=== PATIENT | female | born 1980 | race Caucasian/White ===

== ENCOUNTER → 2022-03-10 | Outpatient (CLI) | payer BC, SELFPAY ==
[2022-03-10 15:16] LABS: Absolute Neutrophil Count 4.4 X10^3/uL (2.0-7.7); Basophil# 0.04 X10^3/uL; Basophil% 0.6 % (0-1); Eosinophil# 0.12 X10^3/uL; Eosinophils% 1.8 % (0-5); Hematocrit 42.6 % (37-47); Lymphocyte % 26.8 % (19-41); Mean Corp Hgb Conc 32.9 g/dL (32-36); Mean Corpuscular Hgb 31.7 pg (27.0-32.0); Mean Corpuscular Volume 96.6 fL (81-99); Mean Platelet Vol. 9.6 fl (6.2-12.0); Monocyte# 0.34 X10^3/uL; Monocyte% 5.1 % (0-10); NRBC Flagged by Analyzer 0 % (0-5); Neutrophil # 4.38 X10^3/uL (2.7-7.7); Neutrophil % 65.3 % (47-70); Platelet Count 255 K/mm3 (150-450); RBC Distribution Width CV 12.3 % (11.6-14.6); RBC Distribution Width SD 43.8 fl (35.1-43.9); Red Blood Count 4.41 M/mm3 (4.2-5.4); White Blood Count 6.7 K/mm3 (4.4-11.0)
[2022-03-10 15:48] LABS: ALB/GLOB Ratio 1.3 RATIO (0.9-2.4); AST(SGOT) 10 U/L (15-37); Alanine Aminotransfer ALT/SGPT 16 U/L (13-56); Albumin, Serum 3.7 g/dL (3.2-5.0); Alkaline Phosphatase 50 U/L (45-117); Anion Gap 4 (5-15); BUN 10 mg/dL (7-18); BUN/Creat Ratio 12.6 RATIO (10-20); Chloride 107 mmol/L (98-107); Creatinine, Serum 0.79 mg/dL (0.55-1.02); EST Glomerular Filtration Rate 85 mL/min (>60); Est Glom Filt Rate - Afr Amer 103 mL/min (>60); Globulin 2.9 g/dL (2.2-4.2); Glucose 102 mg/dL (74-106); Potassium 3.6 mmol/L (3.5-5.1); Protein, Total 6.6 g/dL (6.4-8.2); Sodium Level 140 mmol/L (136-145)
== END | disposition home or self-care (01) ==
PROVIDERS: PCP Internal Medicine; Referring Provider Internal Medicine; Visit Provider Internal Medicine
DX: K58.9 Irritable bowel syndrome, unspecified (principal)
CPT/HCPCS: 36415; 80053; 85025

== ENCOUNTER → 2022-11-17 | Outpatient (CLI) | payer BC, SELFPAY ==
--- NOTE | 2022-11-17 09:42 | BI_ITS ---
MAMMOGRAPHY - BILATERAL SCREENING REASON FOR EXAM: Female, 42 years old. Routine annual screening examination. PERTINENT HISTORY: Non-contributory. TECHNIQUE: Digital bilateral breast aquilino (3D mammographic acquisition) in the CC and MLO projections. 2-D mediolateral oblique (MLO) and craniocaudad (CC) views of both breasts were obtained. CAD: Full Field Digital Mammography with Computer Added Detection was performed. COMPARISON: Comparison is made with prior outside examination dated March 26, 2021. FINDINGS: Breast Composition: There are scattered areas of fibroglandular density. There are no dominant masses or suspicious calcifications. No other significant abnormalities are identified. There has been no significant change since the prior study. BI/SCRN MAMM (CAD)W/AQUILINO BILAT IMPRESSION: Stable bilateral screening mammogram. Yearly follow-up mammogram recommended. (A) ASSESSMENT CATEGORY: BIRADS Category 1: Negative. A letter regarding these results will be sent to the patient by the facility within 30 days. Approximately 10% of breast cancers are not detected by mammography. A normal mammogram should not delay biopsy of a clinically suspicious abnormality. [id number] Electronically Signed: Memo Workman MD at 10:15 EDT ,
== END | disposition home or self-care (01) ==
PROVIDERS: PCP Internal Medicine; Visit Provider Internal Medicine
DX: Z12.31 Encounter for screening mammogram for malignant neoplasm of breast (principal)
CPT/HCPCS: 77063; 77067

== ENCOUNTER → 2023-11-17 | Outpatient (CLI) | payer BC, SELFPAY ==
[2023-11-17 12:38] LABS: Absolute Lymphocyte Count 1.67 X10^3/uL (0.83-4.51); Absolute Neutrophil Count 2.4 X10^3/uL (2.0-7.7); Basophil# 0.05 X10^3/uL; Basophil% 1.1 % (0-1); Eosinophil# 0.16 X10^3/uL; Eosinophils% 3.4 % (0-5); Hematocrit 41.7 % (37-47); Hemoglobin 13.6 g/dL (12.0-15.0); Lymphocyte # 1.67 X10^3/ul (0.83-4.51); Lymphocyte % 35.6 % (19-41); Mean Corp Hgb Conc 32.6 g/dL (32-36); Monocyte# 0.37 X10^3/uL; Monocyte% 7.9 % (0-10); NRBC Flagged by Analyzer 0 % (0-5); Neutrophil # 2.43 X10^3/uL (2.7-7.7); Neutrophil % 51.8 % (47-70); Platelet Count 309 K/mm3 (150-450); RBC Distribution Width SD 45.4 fl (35.1-43.9); Red Blood Count 4.39 M/mm3 (4.2-5.4); White Blood Count 4.7 K/mm3 (4.4-11.0)
[2023-11-17 13:04] LABS: Vitamin D,25 Hydroxy 23.6 ng/mL
[2023-11-17 13:17] LABS: AST(SGOT) 30 U/L (15-37); Alanine Aminotransfer ALT/SGPT 35 U/L (13-56); Albumin, Serum 3.5 g/dL (3.2-5.0); Alkaline Phosphatase 65 U/L (45-117); Anion Gap 6 (5-15); BUN 6 mg/dL (7-18); Calcium,Total 8.8 mg/dL (8.5-10.1); Chloride 107 mmol/L (98-107); Cholesterol 215 mg/dL (200); Creatinine, Serum 0.75 mg/dL (0.55-1.02); EST Glomerular Filtration Rate 90 mL/min (>60); Est Glom Filt Rate - Afr Amer 109 mL/min (>60); Follicle Stimulating Hormone 7.8 mIU/mL; Globulin 3.4 g/dL (2.2-4.2); Glucose 92 mg/dL (74-106); High Density Lipoprotein 63 mg/dL; Luteinizing Hormone 1.7 mIU/mL; Protein, Total 6.9 g/dL (6.4-8.2); Sodium Level 140 mmol/L (136-145); Thyroid Stim Hormone (TSH) 2.09 uIU/mL (0.358-3.74); Triglycerides 94 mg/dL; Very Low Density Lipoprotein 19 mg/dL (5-40)
[2023-11-17 20:03] LABS: Erythrocyte Sedimentation Rate 13 mm/hr (0-30)
[2023-11-18 11:09] LABS: ANTINUCLEAR ANTIBODIES DIRECT Negative (Negative)
[2023-11-21 14:08] LABS: Estrogen, Total, Serum 195 pg/mL (.)
== END | disposition home or self-care (01) ==
LOC: BIMLAB 10:44
PROVIDERS: PCP Internal Medicine; Referring Provider Internal Medicine; Visit Provider Internal Medicine
DX: R23.2 Flushing (principal); E66.01 Morbid (severe) obesity due to excess calories; Z68.41 Body mass index [BMI] 40.0-44.9, adult; R53.83 Other fatigue
CPT/HCPCS: 36415; 80053; 80061; 82306; 82672; 83001; 83002; 84443; 85025; 85652; 86038; 86225; 86235

== ENCOUNTER 2023-12-22 11:47 | Outpatient (RCR) | payer BC, SELFPAY | END 2024-01-15 23:59 | LOC: NS 11:47 | PROVIDERS: PCP Internal Medicine; Referring Provider Internal Medicine; Visit Provider Internal Medicine | DX: Z71.3 Dietary counseling and surveillance (principal); E66.01 Morbid (severe) obesity due to excess calories; Z68.41 Body mass index [BMI] 40.0-44.9, adult | CPT/HCPCS: 97802 ==

== ENCOUNTER → 2024-01-22 | Outpatient (CLI) | payer BC, SELFPAY ==
--- NOTE | 2024-01-22 09:54 | BI_ITS ---
MAMMOGRAPHY - BILATERAL SCREENING REASON FOR EXAM: Female, 43 years old. Routine annual screening examination. PERTINENT HISTORY: Non-contributory. TECHNIQUE: Digital bilateral breast aquilino (3D mammographic acquisition) in the CC and MLO projections. 2-D mediolateral oblique (MLO) and craniocaudad (CC) views of both breasts were obtained. CAD: Full Field Digital Mammography with Computer Added Detection was performed. COMPARISON: Comparison is made with prior study November 17, 2022. FINDINGS: Breast Composition: There are scattered areas of fibroglandular density. There are no dominant masses or suspicious calcifications. Focal architectural distortion is seen on the craniocaudad view of the right breast. The patient will be recalled for additional views including 90 degree lateral and compression spot views. Stable bilateral fat containing axillary lymph nodes. No other significant abnormalities are identified. BI/SCRN MAMM (CAD)W/AQUILINO BILAT IMPRESSION: Focal area of architectural distortion seen on the craniocaudal view of the right breast as described. The patient will be recalled for additional views. Recall Side: Right Breast ASSESSMENT CATEGORY: BIRADS Category 0: Incomplete. Need additional imaging evaluation. A letter regarding these results will be sent to the patient by the facility within 30 days. Approximately 10% of breast cancers are not detected by mammography. A normal mammogram should not delay biopsy of a clinically suspicious abnormality. [id number] Electronically Signed: Memo Workman MD at 11:03 EDT ,
== END | disposition home or self-care (01) ==
LOC: OPBI 09:53
PROVIDERS: PCP Internal Medicine; Visit Provider Internal Medicine
DX: Z12.31 Encounter for screening mammogram for malignant neoplasm of breast (principal)
CPT/HCPCS: 77063; 77067

== ENCOUNTER → 2024-01-26 | Outpatient (CLI) | payer BC, SELFPAY ==
--- NOTE | 2024-01-26 08:54 | BI_ITS ---
MAMMOGRAPHY - UNILATERAL DIAGNOSTIC: RIGHT BREAST REASON FOR EXAM: Female, 43 years old. Abnormal screening mammogram. PERTINENT HISTORY: Non-contributory. TECHNIQUE: Compression spot views in the mediolateral oblique and craniocaudad projections were obtained. 90 degree lateral examination was obtained as well. CAD: Full Field Digital Mammography with Computer Added Detection was performed. COMPARISON: Comparison is made with prior study dated January 22, 2024. FINDINGS: Breast Composition: There are scattered areas of fibroglandular density. There are no dominant masses or suspicious calcifications. No other significant abnormalities are identified. BI/DIAG MAMM W/CAD, UNILAT IMPRESSION: Negative unilateral diagnostic mammogram. Targeted sonographic correlation recommended. ASSESSMENT CATEGORY: BIRADS Category 0: Incomplete. Need additional imaging evaluation. A letter regarding these results will be sent to the patient by the facility within 30 days. Approximately 10% of breast cancers are not detected by mammography. A normal mammogram should not delay biopsy of a clinically suspicious abnormality. Electronically Signed: Memo Workman MD at 9:42 EDT ,
--- NOTE | 2024-01-26 08:54 | US_ITS ---
STUDY: ULTRASOUND BREAST - RIGHT REASON FOR EXAM: Female, 43 years old. Abnormal screening mammogram. TECHNIQUE: Axial and longitudinal images of the RIGHT breast were performed with a high resolution ultrasound transducer. # OF IMAGES: 34 COMPARISON: Comparison is made with prior mammogram done earlier today as well as January 22, 2024. FINDINGS: RIGHT Breast: The lower inner quadrant of the right breast was examined with ultrasound. No sonographic abnormality is seen. Routine annual mammographic follow-up recommended. US/Breast Limited Unilateral IMPRESSION: No sonographic abnormality is seen. ASSESSMENT CATEGORY: BIRADS Category 1: Negative. A letter regarding these results will be sent to the patient by the facility within 30 days. Electronically Signed: Memo Workman MD at 14:32 EDT ,
== END | disposition home or self-care (01) ==
LOC: OPBI 08:51
PROVIDERS: PCP Internal Medicine; Referring Provider Internal Medicine; Visit Provider Internal Medicine
DX: R92.8 Other abnormal and inconclusive findings on diagnostic imaging of breast (principal)
CPT/HCPCS: 76642; 77065

== ENCOUNTER → 2024-08-18 | Outpatient (CLI) | payer BC, SELFPAY ==
[2024-08-18 12:23] LABS: Absolute Lymphocyte Count 1.82 X10^3/uL (0.83-4.51); Absolute Neutrophil Count 2.4 X10^3/uL (2.0-7.7); Basophil# 0.05 X10^3/uL; Eosinophil# 0.15 X10^3/uL; Eosinophils% 3.1 % (0-5); Hematocrit 44.8 % (37-47); Hemoglobin 14.4 g/dL (12.0-15.0); Lymphocyte # 1.82 X10^3/ul (0.83-4.51); Mean Corp Hgb Conc 32.1 g/dL (32-36); Mean Corpuscular Hgb 30.3 pg (27.0-32.0); Mean Corpuscular Volume 94.3 fL (81-99); Mean Platelet Vol. 9.8 fl (6.2-12.0); Monocyte# 0.34 X10^3/uL; Monocyte% 7.1 % (0-10); NRBC Flagged by Analyzer 0 % (0-5); Neutrophil % 50.2 % (47-70); Platelet Count 304 K/mm3 (150-450); RBC Distribution Width CV 12.6 % (11.6-14.6); RBC Distribution Width SD 43.9 fl (35.1-43.9); Red Blood Count 4.75 M/mm3 (4.2-5.4); White Blood Count 4.8 K/mm3 (4.4-11.0)
[2024-08-18 12:42] LABS: ALB/GLOB Ratio 1.1 RATIO (0.9-2.4); AST(SGOT) 56 U/L (15-37); Alanine Aminotransfer ALT/SGPT 85 U/L (13-56); Albumin, Serum 3.7 g/dL (3.2-5.0); Alkaline Phosphatase 90 U/L (45-117); Anion Gap 3 (5-15); BUN 9 mg/dL (7-18); BUN/Creat Ratio 11.1 RATIO (10-20); Calcium,Total 9.1 mg/dL (8.5-10.1); Chloride 106 mmol/L (98-107); Cholesterol 200 mg/dL (200); Creatinine, Serum 0.81 mg/dL (0.55-1.02); EST Glomerular Filtration Rate 81 mL/min (>60); Est Glom Filt Rate - Afr Amer 98 mL/min (>60); Globulin 3.4 g/dL (2.2-4.2); Glucose 100 mg/dL (74-106); High Density Lipoprotein 63 mg/dL; Potassium 3.9 mmol/L (3.5-5.1); Protein, Total 7.1 g/dL (6.4-8.2); Sodium Level 138 mmol/L (136-145); Triglycerides 124 mg/dL; Very Low Density Lipoprotein 25 mg/dL (5-40)
== END | disposition home or self-care (01) ==
LOC: BIMLAB 10:57
PROVIDERS: PCP Internal Medicine; Referring Provider Internal Medicine; Visit Provider Internal Medicine
DX: E55.9 Vitamin D deficiency, unspecified (principal); E78.2 Mixed hyperlipidemia; Z83.2 Family history of diseases of the blood and blood-forming organs and certain disorders involving the immune mechanism; R23.2 Flushing; R53.83 Other fatigue
CPT/HCPCS: 36415; 80053; 80061; 81241; 82306; 85025; 85245

== ENCOUNTER 2024-08-27 13:16 | Emergency (ER) | payer BC, SELFPAY ==
[2024-08-27 13:16] VITALS: BP 137/78; PULSE 62; RESP 16; TEMP 36.4; O2SAT 98; BMI 42.9
--- NOTE | 2024-08-27 13:54 | RAD_ITS ---
HISTORY: Injury/Pain. TECHNIQUE: XR Elbow Min 3 Views. COMPARISON: None. FINDINGS: BONES : No acute fracture identified. Mineralization unremarkable. JOINTS: No dislocation. Joint spaces maintained. RAD/Elbow min 3 Views IMPRESSION: No acute fracture or dislocation identified in the right elbow. Electronically Signed: Isabella Flannery MD at 15:11 EST ,
--- NOTE | 2024-08-27 13:55 | EX.ED.UPPERE ---
HPI History of Present Illness HPI Narrative: Patient presents with a right elbow injury that occurred today. Patient states she slipped and fell. Patient states she landed on her right elbow. Patient is right-hand dominant. Patient states her pain is worse with movement and palpation. Patient describes her pain as throbbing. Patient states nothing seems to help with it. Patient denies any paresthesias or weakness. Patient denies any head injury or loss of consciousness. Patient denies any other injuries. Chief Complaint: Upper Extremity Injury Informant: patient Occured/Mechanism Mechanism/Context: Yes fall Onset/Context/Timing Onset: Today Context: Sudden Onset Timing: Continuous Quality of Pain: Throbbing Location: Right elbow Worsened by: Movement, palpation Relieved by: Nothing Associated Symptoms Associated Symptoms: Negative for Parasthesia, Weakness or Loss of Funtion [facility] Medical History Acute bacterial conjunctivitis IBS (irritable bowel syndrome) Arthritis Home Medications ?Medication ?Instructions ?Recorded ?Last Taken ?Type escitalopram oxalate 5 mg tablet 5 mg PO QDAY #30 tabs 08/18/24 Unknown Rx (Lexapro) Allergy/AdvReac Type Severity Reaction Status Date / Time amoxicillin Allergy Rash Verified 08/27/24 13:19 Sulfa (Sulfonamide Allergy Rash Verified 08/27/24 13:19 Antibiotics) Family History Grandmother Diabetes Grandfather Parkinson disease Mother Skin cancer Bleeding disorder factor 5 Sister Autoimmune disease sjogren's Aunt Autoimmune disease Surgical History History of removal of ovarian cyst H/O tubal ligation History of hysterectomy Social History household members: spouse and children current occupational status: employed current occupation: Works at [employer] Smoking Status: Never smoker Electronic Cigarette Use: not used alcohol intake: current alcohol intake frequency: a few times a week Alcohol type: wine details: 5 oz wine substance use type: does not use what type of physical activity do you participate in: walking frequency: daily do you feel safe at home: Yes ROS ROS ED Constitutional Constitutional ED: Denies chills or fever(s) Eyes Eyes: Denies blurry vision or change in vision ENT ENT ED: Denies rhinorrhea or sore throat Cardiovascular Cardiovascular: Denies chest pain or palpitations Respiratory/Chest Respiratory/Chest: Denies cough or dyspnea Gastrointestinal Gastrointestinal: Denies nausea or vomiting Genitourinary Genitourinary ED: Denies dysuria or hematuria Musculoskeletal Musculoskeletal: Reports back pain; Denies neck pain Integumentary Reports Abrasions; Denies abscess or rash Neurologic Neurologic: Denies headache(s) or weakness Allergic/Immunologic Allergic/Immunologic ED: Denies mouth swelling or urticaria EXAM Physical Exam Const Vital Signs: 08/27/24 13:16 Temperature 97.6 F L Temperature Source Temporal Pulse Rate 62 Respiratory Rate 16 Blood Pressure 137/78 H Blood Pressure Mean 97 Pulse Ox 98 Oxygen Delivery Method Room Air Positive well nourished and well developed Constitutional Narrative: Patient has BMI of 42.9 General Appearance ED: well developed and NAD HEENT Reports moist mucous membranes Neck full ROM and supple Extremity Extremity Narrative: There is tenderness, edema, and ecchymosis over the ulnar aspect of the right elbow and forearm. There is no bony crepitance or step-off noted. Range of motion was limited in all motions of the right elbow secondary to pain. There is a superficial abrasion over the extensor surface of the right proximal forearm. There is no active bleeding noted. Sensation was intact to light touch in the radial, median, and ulnar areas. Strength is 5/5 in the radial, median, and ulnar areas. Radial pulses are equal bilaterally. Neuro oriented x3, CN's II-XII intact bilaterally, moves all extremities, no focal motor deficits and no sensory deficits noted Sensorium / Orientation: alert Motor Exam: strength 5/5 throughout Psych mental status grossly normal Skin Trauma: abrasion MDM MDM MDM Narrative Medical decision making narrative: Differential diagnosis includes fracture, contusion, and sprain. X-rays of the right elbow will be obtained to assess for fracture. Radiography Diagnostic Testing: X-rays of the right elbow were obtained. There are 3 views. On my independent interpretation, there is no acute fracture or dislocation noted. There is no joint effusion or displacement of the fat pads. Radiologist also interpreted the x-rays and agrees. Treatment and Re-Evaluation Narrative: Patient was given a tetanus booster here. Patient was advised of her findings. Patient was instructed to ice and elevate the right elbow. Patient was instructed to continue Tylenol and ibuprofen as needed for pain. Patient was instructed to follow-up with her primary care physician in 5 to 7 days. Patient understood and was agreeable with the plan. All questions were answered. Discharge Plan Triage Chief Complaint: Upper Extremity Injury ED Provider: Zackery Juárez Dx/Rx/DC Orders Clinical Impression: Contusion of right elbow, Fall, Abrasion Instructions: ED Contusion, Elbow Prescriptions: No Action escitalopram oxalate [Lexapro] 5 mg tablet 5 mg PO QDAY Qty: 30 1RF Primary Care Provider: Asmita Gonzalez Referrals: Asmita Gonzalez MD [Primary Care Provider] - 5-7 Days Print Language: Maori Disposition Disposition: Home, Self Care
[2024-08-27] MEDS: Diphth,Pertuss(Acell),Tet Vac 0.5 ML Vial IM (13:59)
== END 2024-08-27 16:08 | disposition home or self-care (01) ==
PROVIDERS: Emergency Provider Emergency Medicine; PCP Internal Medicine; Referring Provider Emergency Medicine; Visit Provider Emergency Medicine
DX: S50.01XA Contusion of right elbow, initial encounter (principal); S50.311A Abrasion of right elbow, initial encounter; S50.811A Abrasion of right forearm, initial encounter; W01.0XXA Fall on same level from slipping, tripping and stumbling without subsequent striking against object, initial encounter; Z23 Encounter for immunization
CPT/HCPCS: 73080; 90471; 90715; 99282

== ENCOUNTER → 2024-10-13 | Outpatient (CLI) | payer BC, SELFPAY ==
[2024-10-13 13:35] LABS: AST(SGOT) 24 U/L (<=31); Alanine Aminotransfer ALT/SGPT 20 U/L (<=34); Albumin, Serum 4.1 g/dL (3.5-5.0); Alkaline Phosphatase 63 U/L (35-104); Bilirubin, Direct 0.12 mg/dL (0.00-0.30); Globulin 2.5 g/dL (2.2-4.2); Protein, Total 6.6 g/dL (5.9-8.4); Total Bilirubin 0.27 mg/dL (0.00-1.30)
== END | disposition home or self-care (01) ==
LOC: BIMLAB 08:29
PROVIDERS: PCP Internal Medicine; Referring Provider Internal Medicine; Visit Provider Internal Medicine
DX: R74.8 Abnormal levels of other serum enzymes (principal)
CPT/HCPCS: 36415; 80076

== ENCOUNTER → 2025-02-20 | Outpatient (CLI) | payer BC, SELFPAY ==
[2025-02-20 15:36] LABS: Hematocrit 43.1 % (37-47); Hemoglobin 13.9 g/dL (12.0-15.0); Immature Granulocytes Count 0.010 X10^3/uL (0.0-0.0); Mean Corp Hgb Conc 32.3 g/dL (32-36); Mean Corpuscular Volume 95.1 fL (81-99); Mean Platelet Vol. 10.1 fl (6.2-12.0); NRBC Flagged by Analyzer 0 % (0-5); Platelet Count 317 K/mm3 (150-450); RBC Distribution Width CV 13.4 % (11.6-14.6); RBC Distribution Width SD 47.2 fl (35.1-43.9); Red Blood Count 4.53 M/mm3 (4.2-5.4); White Blood Count 5.3 K/mm3 (4.4-11.0)
[2025-02-20 16:30] LABS: AST(SGOT) 29 U/L (<=31); Alanine Aminotransfer ALT/SGPT 26 U/L (<=34); Albumin, Serum 4.1 g/dL (3.5-5.0); Alkaline Phosphatase 76 U/L (35-104); Anion Gap 12 (5-15); BUN 9 mg/dL (4-19); BUN/Creat Ratio 11.1 RATIO (10-20); Calcium,Total 9.3 mg/dL (7.6-11.0); Carbon Dioxide 25.3 mmol/L (21.0-32.0); Chloride 103 mmol/L (98-108); Globulin 2.7 g/dL (2.2-4.2); Glucose 85 mg/dL (70-99); Potassium 4.3 mmol/L (3.3-5.1); Vitamin B12 339 pg/mL (180-914); Vitamin D,25 Hydroxy 35.4 ng/mL (30-100)
== END | disposition home or self-care (01) ==
LOC: BIMLAB 12:04
PROVIDERS: PCP Internal Medicine; Referring Provider Internal Medicine; Visit Provider Internal Medicine
DX: Z00.00 Encounter for general adult medical examination without abnormal findings (principal); R53.83 Other fatigue
CPT/HCPCS: 36415; 80053; 82306; 82607; 84443; 85025

== ENCOUNTER → 2025-03-01 | Outpatient (CLI) | payer BC, SELFPAY ==
--- NOTE | 2025-03-01 12:30 | BI_ITS ---
EXAM: SCRN MAMM (CAD)W/AQUILINO BILAT DATE: 03/01/2025 CLINICAL HISTORY: F, Age 44 y/o , SCREENING TECHNIQUE: SCRN MAMM (CAD)W/AQUILINO BILAT COMPARISON: Prior exam(s) dated 01/26/2024, 01/22/2024, 11/17/2022. FINDINGS: TISSUE DENSITY: There are scattered areas of fibroglandular density. Bilateral Breast Mammographic Findings: No significant masses, calcifications or other abnormalities are identified. BI/SCRN MAMM (CAD)W/AQUILINO BILAT IMPRESSION: There is no mammographic evidence of malignancy. OVERALL FINAL ASSESSMENT BI-RADS 1: NEGATIVE. RECOMMENDATION: Routine annual follow-up in 1 Year A letter with findings and recommendations will be mailed to the patient. Reading Location: [id number]
--- NOTE | 2025-03-01 12:30 | BI_ITS ---
EXAM: SCRN MAMM (CAD)W/AQUILINO BILAT DATE: 03/01/2025 CLINICAL HISTORY: F, Age 44 y/o , SCREENING TECHNIQUE: SCRN MAMM (CAD)W/AQUILINO BILAT COMPARISON: Prior exam(s) dated 01/26/2024, 01/22/2024, 11/17/2022. FINDINGS: TISSUE DENSITY: There are scattered areas of fibroglandular density. Bilateral Breast Mammographic Findings: No significant masses, calcifications or other abnormalities are identified. BI/SCRN MAMM (CAD)W/AQUILINO BILAT IMPRESSION: There is no mammographic evidence of malignancy. OVERALL FINAL ASSESSMENT BI-RADS 1: NEGATIVE. RECOMMENDATION: Routine annual follow-up in 1 Year A letter with findings and recommendations will be mailed to the patient. Reading Location: [id number]
== END | disposition home or self-care (01) ==
LOC: OPBI 12:09
PROVIDERS: PCP Internal Medicine; Referring Provider Internal Medicine; Visit Provider Internal Medicine
DX: Z12.31 Encounter for screening mammogram for malignant neoplasm of breast (principal)
CPT/HCPCS: 77063; 77067

== ENCOUNTER 2025-04-08 21:20 | Emergency (ER) | payer BC, SELFPAY ==
[2025-04-08 21:21] VITALS: BP 147/71; PULSE 57; RESP 18; TEMP 36.2; O2SAT 99
--- NOTE | 2025-04-08 21:25 | RAD_ITS ---
PROCEDURE: ANKLE MIN 3 VIEWS 04/08/2025 REASON FOR EXAM: INJURY TECHNIQUE: ANKLE MIN 3 VIEWS Laterality: Right COMPARISON: None. FINDINGS: Bones: No fracture. Joints: No dislocation. Soft tissues: No soft tissue swelling appreciated, normally thick soft tissues are present. Other: RAD/Ankle min 3 Views IMPRESSION: No acute process identified. Reading Location: [facility]
[2025-04-08 22:28] VITALS: BMI 45.3
--- NOTE | 2025-04-08 22:37 | EDS_ITS ---
HPI History of Present Illness Chief Complaint: Lower Extremity Injury [facility] Medical History Acute bacterial conjunctivitis IBS (irritable bowel syndrome) Arthritis Home Medications ?Medication ?Instructions ?Recorded ?Last Taken ?Type escitalopram oxalate 10 mg tablet 10 mg PO QDAY #90 ta bs 03/14/25 Unknown Rx Allergy/AdvReac Type Severity Reaction Status Date / Time amoxicillin Allergy Rash Verified 04/08/25 21:21 Sulfa (Sulfonamide Allergy Rash Verified 04/08/25 21:21 Antibiotics) Family History Grandmother Diabetes Grandfather Parkinson disease Mother Skin cancer Bleeding disorder factor 5 Sister Autoimmune disease sjogren's Aunt Autoimmune disease
--- NOTE | 2025-04-08 22:37 | EX.ED.DYSGE1 ---
HPI History of Present Illness Chief Complaint: Lower Extremity Injury [facility] Medical History Acute bacterial conjunctivitis IBS (irritable bowel syndrome) Arthritis Home Medications ?Medication ?Instructions ?Recorded ?Last Taken ?Type escitalopram oxalate 10 mg tablet 10 mg PO QDAY #90 tabs 03/14/25 Unknown Rx Allergy/AdvReac Type Severity Reaction Status Date / Time amoxicillin Allergy Rash Verified 04/08/25 21:21 Sulfa (Sulfonamide Allergy Rash Verified 04/08/25 21:21 Antibiotics) Family History Grandmother Diabetes Grandfather Parkinson disease Mother Skin cancer Bleeding disorder factor 5 Sister Autoimmune disease sjogren's Aunt Autoimmune disease Surgical History History of removal of ovarian cyst H/O tubal ligation History of hysterectomy Social History (Updated 02/20/25 @ 11:[address] Asmita Gonzalez MD) household members: spouse and children current occupational status: employed current occupation: Works at [employer] Smoking Status: Former smoker Electronic Cigarette Use: not used alcohol intake: current alcohol intake frequency: a few times a week Alcohol type: wine details: 5 oz wine substance use type: does not use what type of physical activity do you participate in: walking frequency: daily do you feel safe at home: Yes EXAM Physical Exam Const Vital Signs: 04/08/25 21:21 04/08/25 22:47 Temperature 97.1 F L 98.1 F Temperature Source Temporal Pulse Rate 57 L 78 Respiratory Rate 18 16 Blood Pressure 147/71 H 123/81 H Blood Pressure Mean 96 95 Pulse Ox 99 98 Oxygen Delivery Method Room Air MDM MDM MDM Narrative Medical decision making narrative: HISTORY OF PRESENT ILLNESS: Chief complaint: Ankle pain 44-year-old female presents with acute right ankle pain. No she was walking down the stairs when she missed the last step. Complaining of right ankle pain. Denies falls or head trauma. Denies knee or hip pain. REVIEW OF SYSTEMS: Pertinent positives: Ankle pain Pertinent negatives: none PHYSICAL EXAM: Nursing triage notes reviewed, Vital signs reviewed Constitutional: please see mdmbruit : No CVAT Extremities: Swelling noted about the lateral malleolus of the right ankle. No sign of open fracture, compartments are soft. right lower extremity neurovascularly intact Neuro: Intact sensation L1-S1 dermatomal distributions. Intact 5/5 strength in hip flexion (T12-L3). Knee extension (L2-L4). Ankle dorsiflexion (L4-L5). Ankle plantar flexion (S1). Great toe extension (L5). 2+ patellar and Achilles DTRs. Skin: No rash or lesions noted MEDICAL DECISION MAKING: Chief Complaint: please see HPI MDM Narrative: The patient was initially hemodynamically stable, afebrile and nontoxic-appearing. Exam with a neurovascular intact right lower extremity. Slight edema to right ankle but otherwise compartments are soft X-ray of the right ankle was interpreted by myself showed evidence of obvious bony abnormality. Radiology agreed my interpretation. RICE instructions given. Aircast given for comfort and stabilization. The patient and/or family, caregivers express understanding. The patient and/or family, caregivers agrees with the plan. Shared decision making: I will have a discussion with the patient and or visitors regarding risk/benefits of further testing or admission. They will be made aware of of the risk/benefits inherent in this decision they will be given the opportunity to voice understanding. Total critical care time today provided was at least 0 minutes. This excludes separately billable procedures. Critical care time (if documented) is secondary to the patient having high probability of clinically significant/life threatening deterioration in the patient's condition which required my urgent intervention. Impression: 1. Acute ankle pain 2. Acute ankle sprain Dispo: Discharge home This note was generated with [employer] dictation software. It may contain incorrect words, spelling, and punctuation that were not noted in review of the chart prior to signing. Radiography Diagnostic Testing: Clinical Impression(s) from Imaging Studies Ankle X-Ray 04/08/25 21:25 IMPRESSION: No acute process identified. Reading [facility] Discharge Plan Triage Chief Complaint: Lower Extremity Injury ED Provider: Jah Ochoa Dx/Rx/DC Orders Clinical Impression: Ankle sprain Instructions: ED Sprain Ankle W X Ray, ED RICE Prescriptions: No Action escitalopram oxalate 10 mg tablet 10 mg PO QDAY Qty: 90 1RF Stand Alone Forms: ED Work / School Excuse Primary Care Provider: Asmita Gonzalez Referrals: Asmita Gonzalez MD [Primary Care Provider] - Activity Restrictions/Additional Instructions: Thank you for trusting us with your care today! The x-ray of your ankle did not show signs of bony injury such as a fracture, break or dislocation. Please use RICE therapy. Please take Tylenol (2 pills, 650 mg), ibuprofen (2 pills, 400 mg) every 6 hours as needed for pain and fever control. Please return to the emergency department if your symptoms change or worsen. Please follow with your primary care physician for further outpatient evaluation and management. Print Language: Polish Disposition Disposition: Home, Self Care Discharge Date/Time: 04/08/25 23:04
[2025-04-08 22:47] VITALS: BP 123/81; PULSE 78; RESP 16; TEMP 36.7; O2SAT 98
--- OUTSIDE RECORDS SUMMARY | 2025-04-08 22:55 | XMS RPT_ITS | CCD ---
Author Organization [facility] Care Team Providers Care Film Mounter Name Role Phone Pcp, No Primary Care Provider Unavailabl e Unavailable Primary Care Provider Unavailmoira e Dr. Mayo Smith Primary Care Provider Dr. Mayo Smith Referring Provider [phone] Dr. Cleo Gonzalez Attending Provider Dr. Cleo Gonzalez Primary Care Provider Dr. Cleo Gonzalez Referring Provider [phone] MIKE Mancini Attending Provider [phone] Dr. Cleo Gonzalez Attending Provider [phone] Unavailable Primary Care Provider UnavailCLEO Salazar MD Attending Unavailable EDWINA GARCÍA APRN, CNP Primary Care U navailable EDWINA GARCÍA APRN, CNP Primary Care Phys ician Dr. Cleo Gonzalez Primary Care Provider Dr. Cleo Gonzalez Referring Provider [phone] MIKE Mancini Attending Provider Dr. Cleo Gonzalez Attending Provider [phone] Unavailable Primary Care Provider UnavailCleo Saalzar MD Primary Care Provider [phone] CLEO GONZALEZ Primary Care Unavailable CLEO GONZALEZ Primary Care Unavailable FREDDY LYONS Referring Unavailable CLEO GONZALEZ Primary Care Unavailable MATTI ANDERSON Referring Unavailable CLEO GONZALEZ Primary Care Unavailable CLEO GONZALEZ Primary Care Unavailable LISA, CLEO G Primary Care Unavailable LISA, CLEO G Primary Care Unavailable Lisa VAUGHAN, Dr. Tian Primary Care Provider [phone] Lisa VAUGHAN, Dr. Tian Attending Provider Lisa VAUGHAN, Dr. Tian Referring Provider Franck CASON, Dr. Vizcarra Attending Provider Franck CASON, Dr. Vizcarra Referring Provider Franck CASON, Dr. Vizcarra Emergency Provider Luana CASON, Dr. Rivas Attending Provider Russell VAUGHAN, Dr. Faust Attending Provider Umesh HEAT CURER-C, Mery Attending Provider Lisa VAUGHAN, Dr. Tian Primary Care Provider [phone] Lisa VAUGHAN, Dr. Tian Referring Provider Sekou Mancini Attending Provider Lisa VAUGHAN, Dr. Tian Attending Provider Lisa, Cleo Referring Unavailable Lisa, Cleo Attending Unavailable [place], Cleo Primary Care Unavailable [place], Cleo Attending Unavailable Lsia, Cleo Primary Care Unavailable [place], Cleo Referring Unavailable Lisa, Cleo Attending Unavailable [place], Cleo Referring Unavailable Lisa, Cleo Primary Care Unavailable [place], Cleo Primary Care Unavailable Schwiger, Zackery Referring Unavailable Schwiger, Zackery Attending Unavailable [place], Cleo Primary Care Unavailable Govind Wells Attending Unavailable Mery Calvo Attending Unavailable [place], Cleo Primary Care Unavailable [place], Cleo Referring Unavailable [place], Cleo Attending Unavailable Lisa, Cleo Referring Unavailable Lisa, Cleo Primary Care Unavailable [place], Cleo Referring Unavailable Lisa, Cleo Primary Care Unavailable Rob Craft Attending Unavailable [place], Cleo Primary Care Unavailable [place], Cleo Referring Unavailable Rob Craft Attending Unavailable [place], Cleo Referring Unavailable CalvoMery Attending Unavailable Lisa, Cleo Primary Care Unavailable Sekou Mancini Attending Unavailable [place], Cleo Primary Care Unavailable [place], Cleo Referring Unavailable CalvoMery Attending Unavailable [place], Cleo Primary Care Unavailable [place], Cleo Referring Unavailable CalvoLindae Attending Unavailable Lisa, Cleo Primary Care Unavailable [place], Cleo Referring Unavailable Lisa, Cleo Referring Unavailable [place], Cleo Attending Unavailable Lisa, Cleo Primary Care Unavailable Lisa, Cleo Attending Unavailable Lisa, Cleo Primary Care Unavailable [place], Cleo Referring Unavailable [place], Cleo Referring Unavailable Lisa, Cleo Attending Unavailable [place], Cleo Primary Care Unavailable Allergies Allergy Classification Reported Allergen(s) Allergy Type Date of Onset Reaction(s) Facility (20 sources) Amoxicillin; Translations: [amoxicillin] Drug Allergy 5 [facility] (18 sources) Sulfacetamide; Translations: [SULFACETAMIDE] Drug Allergy 2 Other: See [facility] (7 sources) Sulfonamides (Antibiotic); Translations: [Sulfa (Sulfonamide Antibiotics)] Allergy to substance 2 Rash [facility] (1 source) Sulfonamide; Translations: [sulfa drugs] Drug allergy [facility] (1 source) Amoxicillin Drug Allergy 5 [facility] Repository Medications Current Medications Medication Drug Class(es) Dates Sig (Normalized) Sig (Original) azithromycin 250 mg oral tablet (6 sources) Macrolide Antimicrobial Start: 05-15-2024 End: 05-20-2024 take 2 tablets by mouth once daily, then take 1 tablet by mouth once daily azithromycin (ZITHROMAX) 250 mg tablet Indications: Respiratory infection Take 2 tablets by mouth once daily for 1 day, THEN 1 tablet once daily for 4 days. 6 tablet 05/15/2024 05/20/2024 Active Start: 11-07-2022 End: 10-16-2023 take 2-5 tablets by mouth once daily Azithromycin 250 mg tablet Discontinued 0 PO .COMPLEX 6 0 November 07, 2022 12:00am October 16, 2023 1:55pm take 500 mg today (day 1), then 250 mg for 4 days (days 2-5) PO Start: 11-07-2022 End: 10-16-2023 Azithromycin Discontinued 0 PO .COMPLEX November 07, 2022 12:00am October 16, 2023 1:55pm take 500 mg today (day 1), then 250 mg for 4 days (days 2-5) PO Azithromycin 5 Day Dose Pack (1 source) Start: 11-23-2014 Azithromycin 5 Day Dose Pack 0 Refill(s) Start Date: 11/23/14 Status: Ordered escitalopram 10 mg oral tablet (8 sources) Serotonin Reuptake Inhibitor Start: 10-13-2024 take 1 tablet by mouth once daily Escitalopram Oxalate 10 mg tablet Active 10 mg PO daily 90 October 13, 2024 9:19am Start: 08-18-2024 End: 10-13-2024 take 1 tablet by mouth once daily Escitalopram Oxalate (Lexapro) 5 mg tablet Discontinued 5 mg PO daily 30 August 18, 2024 1:00am October 13, 2024 9:25am 12 hr guaiFENesin 600 mg extended release oral tablet (2 sources) Start: 06-07-2023 End: 06-14-2023 take 1 tablet by mouth twice daily as needed guaiFENesin (MUCINEX) 600 mg 12 hr tablet Take 1 tablet by mouth two times a day as needed for cold/allergy symptoms (cough) for up to 7 days. 14 tablet 0 06/07/2023 06/14/2023 Active Comment on above: Take 1 tablet by [facility] two times a day as needed for cold/allergy symptoms (cough) for up to 7 days. 2 ml sodium hyaluronate 10 mg/ml prefilled syringe (9 sources) Start: 02-17-2024 EYALURONIC ACI D 10 mg/mL(mw 2.4 -3.6 million) injection INJECT 1 DOSE ONCE A WEEK FOR THE LEFT KNEE FOR 3 WEEKS 02/17/2024 Active Start: 02-07-2022 End: 02-07-2022 hyaluronate sodium, stabiliz ed syrg 4 mL (MONOVISC) Start: 01-08-2022 End: 01-23-2022 Sodium Hyaluronate (HYALURON AN) 30 mg/2 mL syrg 30 mg by INTRA-ARTICULAR route one time a week for 3 doses. Orthovisc 3 Syringe 0 01/08/2022 01/23/2022 Active Start: 01-08-2022 End: 01-08-2022 hyaluronate sodium, stabiliz ed (MONOVISC) 88 mg/4 mL syrg Indications: Arthritis of knee 4 mL by INTRA-ARTICULAR route one time only for 1 dose. Monovisc 4 mL 0 01/08/2022 01/08/2022 Active Start: 12-25-2021 End: 01-09-2022 sodium hyaluronate (EYALURON IC ACID) 10 mg/mL(mw 2.4 -3.6 million) injection Indications: Arthritis of knee 2 mL by INTRA-ARTICULAR route one time a week for 3 doses. 3 Syringe 0 01/07/2022 01/08/2022 Discontinued (Changing Therapy/Dosage Form) Comment on above: 2 mL by INTRA-ARTICU LAR route one time a week for 3 doses. 4 mL by INTRA-ARTICU LAR route one time only for 1 dose. Monovisc 30 mg by INTRA-ARTIC ULAR route one time a week for 3 doses. Orthovisc meclizine hydrochloride 25 mg oral tablet (1 source) Antiemetic Start: 11-24-19 meclizine 25 mg oral tablet Dose : 25 mg = 1 tab(s), Oral, TID, # 30 tab(s), 0 Refill(s) Start Date: 11/23/14 Status: Ordered meloxicam 15 mg oral tablet (4 sources) Nonsteroidal Anti-inflammatory Drug Start: 03-08-20 take 1 tablet by mouth once meloxicam (MOBIC) 15 mg tablet Take 1 tablet by mouth every afternoon. 03/08/2024 Active predniSONE 10 mg oral tablet (11 sources) Start: 12-18-19 predniSONE (DELTASONE) 10 mg tablet Take 4 tabs daily for 3 days, then 2 tabs daily for 3 days, then 1 tab daily for 3 days with food. 21 tablet 12/18/2023 Active Start: 02-25-2022 End: 03-06-2022 predniSONE (DELTASONE) 10 mg tablet Take 4 tabs daily for 3 days, then 2 tabs daily for 3 days, then 1 tab daily for 3 days with food. 21 tablet 0 02/25/2022 03/06/2022 Active Start: 11-23-2014 prednisone 20m g tab (TAPER) Dose : 20 mg = 1 tab(s), Oral, qDay, 0 Refill(s) Start Date: 11/23/14 Status: Ordered Comment on above: Take 4 tabs daily fo r 3 days, then 2 tabs daily for 3 days, then 1 tab daily for 3 days with food. Completed/Discontinued Medications Medication Drug Class(es) Dates Sig (Normalized) Sig (Original) benzonatate 100 mg oral capsule (5 sources) Non-narcotic Antitussive Start: 11-07-2022 End: 10-16-2023 take 2 capsules by mouth three times daily as needed for cough Benzonatate 100 mg capsule Discontinued 200 mg PO THREE TIMES A DAY as needed for cough November 07, 2022 12:00am October 16, 2023 1:55pm Start: 11-07-2022 End: 10-16-2023 take 200 mg by mouth three times daily Benzonatate Discontinued 200 MG PO THREE TIMES A DAY November 07, 2022 12:00am October 16, 2023 1:55pm cephalexin 500 mg oral capsule (4 sources) Cephalosporin Antibacterial Start: 07-02-2023 End: 07-12-2023 take 1 capsule by mouth every twelve hours Cephalexin 500 mg capsule Discontinued 500 mg PO Q12H 20 10 July 02, 2023 1:00am July 11, 2023 1:00am July 12, 2023 1:04am cyclobenzaprine hydrochloride 5 mg oral tablet (16 sources) Muscle Relaxant Start: 10-13-2022 End: 11-17-2023 take 1 tablet by mouth twice daily as needed for pain Cyclobenzaprine 5 mg tablet Discontinued 5 mg PO TWICE A DAY as needed for pain October 13, 2022 5:06pm November 17, 2023 9:51am Start: 03-10-2022 End: 09-27-2022 take 1 tablet by mouth once daily as needed for pain Cyclobenzaprine 5 mg tablet Discontinued 5 mg PO DAILY as needed for pain March 10, 2022 12:00am September 27, 2022 10:19am doxycycline monohydrate 100 mg oral capsule (4 sources) Tetracycline-class Drug Start: 10-28-2024 End: 11-07-2024 take 1 capsule by mouth twice daily Doxycycline Monohydrate 100 mg capsule Discontinued 100 mg PO TWICE A DAY 20 October 28, 2024 12:00am November 06, 2024 12:00am November 07, 2024 12:12am Start: 06-07-2023 End: 06-12-2023 take 1 tablet by mouth twice daily doxycycline (VIBRA-TABS) 100 mg tablet Take 1 tablet by mouth two times a day for 5 days. 10 tablet 0 06/07/2023 06/12/2023 Active Comment on above: Take 1 tablet by pily two times a day for 5 days. fluticasone propionate 0.05 mg/actuat metered dose nasal spray (4 sources) Corticosteroid Start: End: take 50 ug nasal route twice daily Fluticasone Propionate (Children's Flonase Allergy Rlf) 50 mcg/actuation spray,suspension Discontinued 2 NMA INTRANASAL TWICE A DAY October 16, 2023 1:00am November 17, 2023 9:52am administer into each nostril Start: 10-16-2023 End: 11-17-2023 take 1 spray(s) nasal route twice daily Fluticasone Propionate (Children's Flonase Allergy Rlf) 50 mcg/actuation spray,suspension Discontinued 2 SPRAY INTRANASAL TWICE A DAY October 16, 2023 1:00am November 17, 2023 9:52am administer into each nostril ibuprofen 800 mg oral tablet (6 sources) Nonsteroidal Anti-inflammatory Drug Start: 03-10-2022 End: 09-27-2022 take 1 tablet by mouth every eight hours Ibuprofen 800 mg tablet Discontinued 800 mg PO Q8H 30 March 10, 2022 12:00am September 27, 2022 10:19am Chronic knee pain Pain in unspecified knee Other chronic pain methylPREDNISolone 4 mg oral tablet (13 sources) Corticosteroid Start: 10-16-2023 End: 10-22-2023 take 1 tablet by mouth once Methylprednisolone (Medrol (Esau)) 4 mg tablets,dose pack Discontinued 4 mg PO per package directions 21 6 0 October 16, 2023 1:00am October 21, 2023 1:00am October 22, 2023 1:05am Start: 07-02-2023 End: 07-08-2023 take 1 tablet by mouth once Methylprednisolone (Medrol (Esau)) 4 mg tablets,dose pack Discontinued 4 mg PO per package directions 21 6 0 July 02, 2023 1:00am July 07, 2023 1:00am July 08, 2023 1:04am Start: 11-07-2022 End: 11-13-2022 take 1 tablet by mouth once Methylprednisolone (Medrol (Esau)) 4 mg tablets,dose pack Discontinued 4 mg PO per package directions 21 6 0 November 07, 2022 12:00am November 12, 2022 12:00am November 13, 2022 12:04am naproxen 500 mg oral tablet (16 sources) Nonsteroidal Anti-inflammatory Drug Start: 10-13-2022 End: 11-17-2023 Naproxen 500 mg tablet Discontinued 500 mg PO TWICE A DAY October 13, 2022 5:06pm November 17, 2023 9:52am take twice daily for 10 days, then as needed. Start: 08-06-2015 End: 03-10-2022 take 1 tablet by mouth twice daily Naproxen (Naprosyn) 500 MG tablet Discontinued 500 mg PO TWICE A DAY August 06, 2015 1:00am March 10, 2022 1:16pm Tobramycin (2 sources) Aminoglycoside Antibacterial Start: 09-27-2022 End: 10-04-2022 Tobramycin Discontinued 1 DRP OPHTHALMIC Q4H 5 7 September 27, 2022 1:00am October 04, 2022 1:12am Tobramycin 0.3 % drops (3 sources) Start: 09-27-2022 End: 10-04-2022 take 0.3 drop(s) into the eye(s) every four hours Tobramycin 0.3 % drops Discontinued 1 NMA OPHTHALMIC Q4H 5 7 0 September 27, 2022 1:00am October 03, 2022 1:00am October 04, 2022 1:12am Start: 09-27-2022 End: 10-04-2022 take 0.3 drop(s) into the eye(s) every four hours Tobramycin 0.3 % drops Discontinued 1 NMA OPHTHALMIC Q4H 5 7 September 27, 2022 1:00am October 03, 2022 1:00am October 04, 2022 1:12am Problems Active Problems Problem Classification Problem Date Documented Da te Episodic/Chronic Abdominal pain (6 sources) Pain in pelvis; Translations: [Pelvic and perineal pain] 08-07-2015 Episodic Adjustment disorders (1 source) Adjustment disorder with other symptoms; Translations: [Other specified adjustment reactions] Chronic Administrative/social admission (1 source) Persons encountering health services in other specified circumstances; Translations: [Other reasons for seeking consultation] Episodic Anxiety disorders (7 sources) Anxiety disorder, unspecified; Translations: [Anxiety state, unspecified] Onset: 5 10-13-2022 Chronic Conditions associated with dizziness or vertigo (2 sources) Dizziness; Translations: [Dizziness and giddiness] 07-26-2024 Episodic Disorders of lipid metabolism (3 sources) Mixed hyperlipidemia; Translations: [Mixed hyperlipidemia] Onset: 5 08-18-2024 Chronic Disorders of teeth and jaw (1 source) Temporomandibular [id number] syndrome; Translations: [Arthralgia of temporomandibular joint, unspecified side] 12-18-2023 Episodic E Codes: Fall (3 sources) Fall; Translations: [Unspecified fall, initial encounter] 09-04-2024 Episodic Headache; including migraine (1 source) Headache; Translations: [Daily headache] 10-13-2022 Episodic Immunizations and screening for infectious disease (5 sources) Contact with and (suspected) exposure to other viral communicable diseases; Translations: [Contact with or suspected exposure to other viral communicable disease] 11-16-2023 Episodic Inflammation; infection of eye (except that caused by tuberculosis or sexually transmitteddisease) (5 sources) Acute infectious conjunctivitis; Translations: [Unspecified acute conjunctivitis, unspecified eye] 10-13-2022 Episodic Malaise and fatigue (1 source) Chronic fatigue, unspecified; Translations: [Chronic fatigue, unspecified] Onset: 5 Chronic Malaise and fatigue (7 sources) Other fatigue; Translations: [Other malaise and fatigue] Onset: 4 Episodic Nutritional deficiencies (2 sources) Vitamin D deficiency; Translations: [Vitamin D deficiency, unspecified] Onset: 5 08-18-2024 Chronic Osteoarthritis (20 sources) Arthritis of knee; Translations: [Unilateral primary osteoarthritis, unspecified knee] Onset: Chronic Other connective tissue disease (1 source) Muscle pain; Translations: [Myalgia, unspecified site] Episodic Other ear and sense organ disorders (1 source) Other specified disorders of ear, unspecified ear; Translations: [Other disorders of ear] 11-17-2023 Episodic Other gastrointestinal disorders (6 sources) Irritable bowel syndrome; Translations: [Irritable bowel syndrome without diarrhea] 03-10-2022 Chronic Other gastrointestinal disorders (1 source) Irritable bowel syndrome without diarrhea; Translations: [Irritable bowel syndrome] Chronic Other injuries and conditions due to external causes (2 sources) Injury of right elbow region; Translations: [Unspecified injury of right elbow, initial encounter] 03-07-2024 Episodic Other injuries and conditions due to external causes (3 sources) Abrasion; Translations: [Other injury of unspecified body region, initial encounter] 09-04-2024 Episodic Other liver diseases (1 source) Elevated liver enzymes level; Translations: [Abnormal levels of other serum enzymes] 10-13-2024 Episodic Other lower respiratory disease (7 sources) Cough; Translations: [Cough] 11-07-2022 Episodic Other lower respiratory disease (1 source) Respiratory tract infection; Translations: [Other specified respiratory disorders] 05-15-2024 Episodic Other non-traumatic joint disorders (1 source) Pain in unspecified knee; Translations: [Pain in joint, lower leg] Episodic Other non-traumatic joint disorders (1 source) Pain in left hip; Translations: [Pain in joint, pelvic region and thigh] 11-17-2023 Episodic Other nutritional; endocrine; and metabolic disorders (20 sources) Body mass index 40+ - severely obese; Translations: [Morbid (severe) obesity due to excess calories] Onset: 3 08-12-2021 Chronic Other nutritional; endocrine; and metabolic disorders (2 sources) Morbid (severe) obesity due to excess calories; Translations: [Morbid obesity] Onset: 5 11-17-2023 Chronic Other nutritional; endocrine; and metabolic disorders (4 sources) Obesity; Translations: [Obesity, unspecified] 09-05-2024 Chronic Other nutritional; endocrine; and metabolic disorders (1 source) Body mass index (BMI) 40.0-44.9, adult; Translations: [Body mass index [BMI] 40.0-44.9, adult] Onset: 5 Chronic Other screening for suspected conditions (not mental disorders or infectious disease) (9 sources) Encounter for other screening for malignant neoplasm of breast; Translations: [Breast screening, unspecified] Onset: 4 10-13-2022 Episodic Other upper respiratory disease (5 sources) Congestion of nasal sinus; Translations: [Nasal congestion] 11-07-2022 Episodic Other upper respiratory infections (1 source) Chronic sinusitis; Translations: [Chronic sinusitis, unspecified] 06-07-2023 Chronic Other upper respiratory infections (18 sources) Acute sinusitis; Translations: [Acute sinusitis, unspecified] 11-07-2022 Episodic Otitis media and related conditions (5 sources) Dysfunction of eustachian tube; Translations: [Unspecified Eustachian tube disorder, bilateral] 10-16-2023 Episodic Residual codes; unclassified (4 sources) Flushing; Translations: [Flushing] Onset: 4 Episodic Residual codes; unclassified (4 sources) Flushing; Translations: [Flushing] 08-18-2024 Episodic Residual codes; unclassified (1 source) Family history of blood coagulation disorder; Translations: [Family history of diseases of the blood and blood-forming organs and certain disorders involving the immune mechanism] 08-18-2024 Episodic Sprains and strains (5 sources) Sprain of left foot; Translations: [Unspecified sprain of left foot, initial encounter] 09-01-2024 Episodic Superficial injury; contusion (3 sources) Contusion of right elbow; Translations: [Contusion of right elbow, initial encounter] 09-04-2024 Episodic Past or Other Problems Problem Classification Problem Date Documented Da te Episodic/Chronic Genitourinary symptoms and ill-defined conditions (11 sources) History of urinary tract infection; Translations: [Personal history of urinary (tract) infections] Onset: 10-26-2012 Resolved: 11-09-2012 08-12-2021 Episodic Joint disorders and dislocations; trauma-related (6 sources) Dislocation of jaw, unspecified side, initial encounter; Translations: [Closed dislocation of jaw] Onset: 10-13-2024 Episodic Nonmalignant breast conditions (17 sources) Sebaceous cyst of skin of breast; Translations: [Other benign mammary dysplasias of unspecified breast] Onset: 03-23-2013 03-23-2013 Episodic Other connective tissue disease (1 source) Pain in left foot; Translations: [Pain in left foot] Onset: 09-05-2024 Episodic Other injuries and conditions due to external causes (1 source) Unspecified injury of right elbow, initial encounter; Translations: [Injury of right elbow, initial encounter] Onset: 03-07-2024 Episodic Other injuries and conditions due to external causes (1 source) Encounter for examination and observation following other accident; Translations: [Encounter for examination and observation following other accident] Onset: 09-19-2024 Episodic Other liver diseases (1 source) Abnormal levels of other serum enzymes; Translations: [Abnormal levels of other serum enzymes] Onset: 10-27-2024 Episodic Other non-traumatic joint disorders (17 sources) Pain in right knee; Translations: [Pain in joint, lower leg] Onset: 06-21-2019 06-21-2019 Episodic Other and delivery including normal (10 sources) Normal ; Translations: [Encounter for supervision of other normal , unspecified trimester] Onset: 12-08-2012 Resolved: 08-05-2013 08-05-2013 Episodic Residual codes; unclassified (1 source) Family history of diseases of the blood and blood-forming organs and certain disorders involving the immune mechanism; Translations: [Family history of diseases of the blood and blood-forming organs and certain disorders involving the immune mechanism] Onset: 10-13-2024 Episodic Urinary tract infections (10 sources) Lower urinary tract infectious disease; Translations: [Urinary tract infection, site not specified] Onset: 10-20-2012 Resolved: 10-22-2012 08-12-2021 Episodic Results Test Name Value Interpretation Reference Range Facility SCRN MAMM (CAD)Rere/AQUILINO paz 03-01-2025 SCRN MAMM (CAD)W/AQUILINO JERNIGAN [facility] Imaging Services [address], [place] [id number] SCRN MAMM (CAD)/AQUILINO JERNIGAN MR#: [id number] Acct: [id number] Name: MARTHA WARD Rep #: [id number] : 1980 F 44 From: Consuelo Vazquez MD PCP: Dr. Cleo Gonzalez MD Status: REG CLI Study: SCRN MAMM (CAD)W/AQUILINO BILAT Date of Exam: 02/14 02/08 Exam# [id number] Ordering Dr: Cleo Gonzalez MD EXAM: SCRN MAMM (CAD)W/AQUILINO BILAT DATE: 03/01/2025 CLINICAL HISTORY: F, Age 44 y/o , SCREENING TECHNIQUE: SCRN MAMM (CAD)W/AQUILINO BILAT COMPARISON: Prior exam(s) dated 01/26/2024, 01/22/2024, 11/17/2022. FINDINGS: TISSUE DENSITY: There are scattered areas of fibroglandular density. Bilateral Breast Mammographic Findings: No significant masses, calcifications or other abnormalities are identified. BI/SCRN MAMM (CAD)W/AQUILINO BILAT IMPRESSION: There is no mammographic evidence of malignancy. OVERALL FINAL ASSESSMENT BI-RADS 1: NEGATIVE. RECOMMENDATION: Routine annual follow-up in 1 Year A letter with findings and recommendations will be mailed to the patient. Reading Location: [facility] CC: Dr. Cleo Gonzalez MD Director Of Social Media Marketing: Signed Normal [facility] Absolute lymphocyte countOrd ered By: Cleo Gonzalez on 02-20-2025 Lymphocytes Auto (Unsp spec) [#/Vol] 1.73 10*3/uL 0.83-4.51 [facility] Absolute neutrophil countOrd ered By: Cleo Gonzalez on 02-20-2025 Neutrophils (Bld) [#/Vol] 3.1 10*3/uL 2.0-7.7 [facility] Anion gap in Serum or Plasma Ordered By: Cleo Gonzalez on 02-20-2025 Anion gap [Moles/Vol] 12 mmol/L 5-15 [facility] Automated lymphocyte count a s percentage of total leukocytesOrdered By: Cleo Gonzalez on 02-20-2025 Lymphocytes/100 WBC Auto (Unsp spec) 32.6 % 19-41 [facility] BUN/creatinine ratioOrdered By: Cleo Lisa on 02-20-2025 Urea nitrogen/Creatinine [Mass ratio] 11.1 mg/mg 10-20 [facility] Basophil percentageOrdered B y: Cleo Lisa on 02-20-2025 Basophils/100 WBC (Bld) 0.8 % 0-1 [facility] Bilirubin, totalOrdered By: Cleo [place]mers[place] on 02-20-2025 Bilirubin [Mass/Vol] 0.35 mg/dL 0.00-1.30 [facility] CBC W/Diff, Automatedon Absolute Lymph 1.73 X10 3/uL Normal 0.83-4.51 [facility] Comment on above: Performed By: #### L 501.9520, L500.4050, L100.0100, L503.0106, L506.1001 #### [facility] Laboratory [address] [place], [address] Absolute Neut 3.1 X10 3/uL Normal 2.0-7.7 [facility] Comment on above: Performed By: #### L 501.9520, L500.4050, L100.0100, L503.0106, L506.1001 #### [facility] [address] [place], [address] Basophils/100 WBC (Bld) 0.8 % Normal 0-1 [facility] Comment on above: Performed By: #### L 501.9520, L500.4050, L100.0100, L503.0106, L506.1001 #### [facility] [address] [place], [address] Eosinophils/100 WBC (Bld) 2.3 % Normal 0-5 [facility] Comment on above: Performed By: #### L 501.9520, L500.4050, L100.0100, L503.0106, L506.1001 #### [facility] [address] [place], [address] Erythrocyte distribution width (RBC) [Ratio] 13.4 % Normal 11.6-14.6 [facility] Comment on above: Performed By: #### L 501.9520, L500.4050, L100.0100, L503.0106, L506.1001 #### [facility] [address] [place], [address] Hematocrit (Bld) [Volume fraction] 43.1 % Normal 37-47 [facility] Comment on above: Performed By: #### L 501.9520, L500.4050, L100.0100, L503.0106, L506.1001 #### [facility] [address] [place], [address] Hemoglobin (Bld) [Mass/Vol] 13.9 g/dL Normal 12.0-15.0 [facility] Comment on above: Performed By: #### L 501.9520, L500.4050, L100.0100, L503.0106, L506.1001 #### [facility] [address] [place], [address] IG% 0.200 Normal 0.0-0.9 [facility] Comment on above: Result Comment: IG% - Immature Granulocytes (promyelocytes, myelocytes and metamyelocytes) > 1% indicates that a LEFT SHIFT is Present. Performed By: #### L 501.9520, L500.4050, L100.0100, L503.0106, L506.1001 #### [facility] [address] [place], [address] Lymphocytes/100 WBC (Bld) 32.6 % Normal 19-41 [facility] Comment on above: Performed By: #### L 501.9520, L500.4050, L100.0100, L503.0106, L506.1001 #### [facility] [address] [place], [address] MCH (RBC) [Entitic mass] 30.7 pg Normal 27.0-32.0 [facility] Comment on above: Performed By: #### L 501.9520, L500.4050, L100.0100, L503.0106, L506.1001 #### [facility] [address] [place], [address] MCHC (RBC) [Mass/Vol] 32.3 g/dL Normal 32-36 [facility] Comment on above: Performed By: #### L 501.9520, L500.4050, L100.0100, L503.0106, L506.1001 #### [facility] [address] [place], [address] MCV (RBC) [Entitic vol] 95.1 fL Normal 81-99 [facility] Comment on above: Performed By: #### L 501.9520, L500.4050, L100.0100, L503.0106, L506.1001 #### [facility] [address] [place], [address] Monocytes/100 WBC (Bld) 4.9 % Normal 0-10 [facility] Comment on above: Performed By: #### L 501.9520, L500.4050, L100.0100, L503.0106, L506.1001 #### [facility] [address] [place], [address] Neutrophils/100 WBC (Bld) 59.2 % Normal 47-70 [facility] Comment on above: Performed By: #### L 501.9520, L500.4050, L100.0100, L503.0106, L506.1001 #### [facility] [address] [place], [address] Nucleated RBC (Bld) [#/Vol] 0 10*3/uL Normal 0-5 [facility] Comment on above: Performed By: #### L 501.9520, L500.4050, L100.0100, L503.0106, L506.1001 #### [facility] [address] [place], [address] Platelet mean volume (Bld) [Entitic vol] 10.1 fL Normal 6.2-12.0 [facility] Comment on above: Performed By: #### L 501.9520, L500.4050, L100.0100, L503.0106, L506.1001 #### [facility] [address] [place], [address] Platelets (Bld) [#/Vol] 317 10*3/uL Normal 150-450 [facility] Comment on above: Performed By: #### L 501.9520, L500.4050, L100.0100, L503.0106, L506.1001 #### [facility] [address] [place], [address] RBC (Bld) [#/Vol] 4.53 10*6/uL Normal 4.2-5.4 [facility] Comment on above: Performed By: #### L 501.9520, L500.4050, L100.0100, L503.0106, L506.1001 #### [facility] [address] [place], [address] RDW SD 47.2 fl High 35.1-43.9 [facility] Comment on above: Performed By: #### L 501.9520, L500.4050, L100.0100, L503.0106, L506.1001 #### [facility] [address] [place], [address] WBC (Bld) [#/Vol] 5.3 10*3/uL Normal 4.4-11.0 [facility] Comment on above: Performed By: #### L 501.9520, L500.4050, L100.0100, L503.0106, L506.1001 #### [facility] [address] [place], [address] Carbon dioxide, total [Moles /volume] in Central venous bloodOrdered By: Cleo Lisa on 02-20-2025 CO2 [Moles/Vol] 25.3 mmol/L 21.0-32.0 [facility] Chloride assayOrdered By: Al ycia [place] on 02-20-2025 Chloride [Moles/Vol] 103 mmol/L 98-108 [facility] Comprehensive Metabolic Prof ilon 02-20-2025 Albumin [Mass/Vol] 4.1 g/dL Normal 3.5-5.0 [facility] Comment on above: Performed By: #### L 501.9520, L500.4050, L100.0100, L503.0106, L506.1001 #### [facility] [address] [place], [address] Albumin/Globulin [Mass ratio] 1.5 {ratio} Normal 0.9-2.4 [facility] Comment on above: Performed By: #### L 501.9520, L500.4050, L100.0100, L503.0106, L506.1001 #### [facility] [address] [place], [address] ALK PHOS 76 U/L Normal 35-104 [facility] Comment on above: Performed By: #### L 501.9520, L500.4050, L100.0100, L503.0106, L506.1001 #### [facility] [address] [place], [address] ALT [Catalytic activity/Vol] 26 U/L Normal <=34 [facility] Comment on above: Performed By: #### L 501.9520, L500.4050, L100.0100, L503.0106, L506.1001 #### [facility] [address] [place], [address] AST [Catalytic activity/Vol] 29 U/L Normal <=31 [facility] Comment on above: Performed By: #### L 501.9520, L500.4050, L100.0100, L503.0106, L506.1001 #### [facility] [address] [place], [address] Bilirubin [Mass/Vol] 0.35 mg/dL Normal 0.00-1.30 [facility] Comment on above: Performed By: #### L 501.9520, L500.4050, L100.0100, L503.0106, L506.1001 #### [facility] [address] [place], [address] BUN/CRE 11.1 RATIO Normal 10-20 [facility] Comment on above: Performed By: #### L 501.9520, L500.4050, L100.0100, L503.0106, L506.1001 #### [facility] [address] [place], [address] Calcium [Mass/Vol] 9.3 mg/dL Normal 7.6-11.0 [facility] Comment on above: Performed By: #### L 501.9520, L500.4050, L100.0100, L503.0106, L506.1001 #### [facility] [address] [place], [address] Chloride [Moles/Vol] 103 mmol/L Normal 98-108 [facility] Comment on above: Performed By: #### L 501.9520, L500.4050, L100.0100, L503.0106, L506.1001 #### [facility] [address] [place], [address] CO2 [Moles/Vol] 25.3 mmol/L Normal 21.0-32.0 [facility] Comment on above: Performed By: #### L 501.9520, L500.4050, L100.0100, L503.0106, L506.1001 #### [facility] [address] [place], [address] Creatinine [Mass/Vol] 0.77 mg/dL Normal 0.70-1.20 [facility] Comment on above: Performed By: #### L 501.9520, L500.4050, L100.0100, L503.0106, L506.1001 #### [facility] [address] [place], [address] GAP 12 Normal 5-15 [facility] Comment on above: Performed By: #### L 501.9520, L500.4050, L100.0100, L503.0106, L506.1001 #### [facility] [address] [place], [address] GFR/1.73 sq M.predicted among non-blacks MDRD (S/P/Bld) [Vol rate/Area] 97 mL/min/{1.73_m2} Normal >60 [facility] Comment on above: Result Comment: mL/m in/1.73m2 CKD-EPI Creatinine Equation (2020) Performed By: #### L 501.9520, L500.4050, L100.0100, L503.0106, L506.1001 #### [facility] [address] [place], [address] Globulin (S) [Mass/Vol] 2.7 g/dL Normal 2.2-4.2 [facility] Comment on above: Performed By: #### L 501.9520, L500.4050, L100.0100, L503.0106, L506.1001 #### [facility] [address] [place], [address] Glucose [Mass/Vol] 85 mg/dL Normal 70-99 [facility] Comment on above: Performed By: #### L 501.9520, L500.4050, L100.0100, L503.0106, L506.1001 #### [facility] [address] [place], [address] Potassium [Moles/Vol] 4.3 mmol/L Normal 3.3-5.1 [facility] Comment on above: Performed By: #### L 501.9520, L500.4050, L100.0100, L503.0106, L506.1001 #### [facility] [address] [place], [address] Sodium [Moles/Vol] 140 mmol/L Normal 133-145 [facility] Comment on above: Performed By: #### L 501.9520, L500.4050, L100.0100, L503.0106, L506.1001 #### [facility] [address] [place], [address] T PROT 6.8 g/dL Normal 5.9-8.4 [facility] Comment on above: Performed By: #### L 501.9520, L500.4050, L100.0100, L503.0106, L506.1001 #### [facility] [address] [place], [address] Urea nitrogen [Mass/Vol] 9 mg/dL Normal 4-19 [facility] Comment on above: Performed By: #### L 501.9520, L500.4050, L100.0100, L503.0106, L506.1001 #### [facility] [address] [place], [address] Eosinophil percentageOrdered By: Cleo Gonzalez on 02-20-2025 Eosinophils/100 WBC (Bld) 2.3 % 0-5 [facility] Erythrocyte distribution wid th ratioOrdered By: Cleo Gonzalez on 02-20-2025 Erythrocyte distribution width (RBC) [Ratio] 13.4 % 11.6-14.6 [facility] Erythrocyte distribution wid th standard deviationOrdered By: Cleo Gonzalez on 02-20-2025 Erythrocyte distribution width (RBC) [Ratio] 47.2 fl High 35.1-43.9 [facility] Glomerular filtration rate ( GFR) estimation/1.73 sq m using serum, plasma, or whole bOrdered By: Cleo Gonzalez on 02-20-2025 GFR/1.73 sq M.predicted among non-blacks MDRD (S/P/Bld) [Vol rate/Area] 97 mL/min/{1.73_m2} >60 [facility] Comment on above: mL/min/1.73m2 CKD-EP I Creatinine Equation (2020) Hematocrit Auto (Bld) [Volum e fraction]Ordered By: Cleo Gonzalez on 02-20-2025 Hematocrit (Bld) [Volume fraction] 43.1 % 37-47 [facility] Hemoglobin measurementOrdere d By: Cleo Gonzalez on 02-20-2025 Hemoglobin (Bld) [Mass/Vol] 13.9 g/dL 12.0-15.0 [facility] Immature granulocytes/100 WB C Auto (Bld)Ordered By: Cleo Gonzalez on 02-20-2025 Immature granulocytes/100 WBC (Bld) 0.200 % 0.0-0.9 [facility] Comment on above: IG% - Immature Granu locytes (promyelocytes, myelocytes and metamyelocytes) > 1% indicates that a LEFT SHIFT is Present. Laboratory - Chemistry and C hemistry - challengeOrdered By: Cleo Gonzalez on 02-20-2025 AST [Catalytic activity/Vol] 29 U/L <32 [facility] MCV (mean corpuscular volume ) determinationOrdered By: Cleo Gonzalez on 02-20-2025 MCV (RBC) [Entitic vol] 95.1 fL 81-99 [facility] Mean corpuscular hemoglobin (MCH) determinationOrdered By: Cleo Gonzalez on 02-20-2025 MCH (RBC) [Entitic mass] 30.7 pg 27.0-32.0 [facility] Mean corpuscular hemoglobin concentration (MCHC) determinationOrdered By: Cleo Gonzalez on 02-20-2025 MCHC (RBC) [Mass/Vol] 32.3 g/dL 32-36 [facility] Mean platelet volume determi nationOrdered By: Cleo Gonzalez on 02-20-2025 Platelet mean volume (Bld) [Entitic vol] 10.1 fL 6.2-12.0 [facility] Monocyte percentageOrdered B y: Cleo Gonzalez on 02-20-2025 Monocytes/100 WBC (Bld) 4.9 % 0-10 [facility] Neutrophil percentageOrdered By: Cleo Gonzalez on 02-20-2025 Neutrophils/100 WBC (Bld) 59.2 % 47-70 [facility] Nucleated red blood cell per centageOrdered By: Cleo Gonzalez on 02-20-2025 Nucleated RBC/100 WBC (Bld) [Ratio] 0 % 0-5 [facility] Platelet countOrdered By: Sunil Gonzalez on 02-20-2025 Platelets (Bld) [#/Vol] 317 10*3/uL 150-450 [facility] Potassium measurement (mass/ volume)Ordered By: Cleo Gonzalez on 02-20-2025 Potassium (Unsp spec) [Mass/Vol] 4.3 mmol/L 3.3-5.1 [facility] RBC Auto (Bld) [#/Vol]Ordere d By: Cleo Gonzalez on 02-20-2025 RBC (Bld) [#/Vol] 4.53 10*6/uL 4.2-5.4 [facility] Serum creatinine measurement (mass/volume)Ordered By: Cleo Gonzalez on 02-20-2025 Creatinine [Mass/Vol] 0.77 mg/dL 0.70-1.20 [facility] Serum globulin measurementOr dered By: Cleo Gonzalez on 02-20-2025 Globulin (S) [Mass/Vol] 2.7 g/dL 2.2-4.2 [facility] Serum glucose measurement (m ass/volume)Ordered By: Cleo Gonzalez on 02-20-2025 Glucose [Mass/Vol] 85 mg/dL 70-99 [facility] Serum or plasma alanine davila otransferase (ALT) measurementOrdered By: Cleo Gonzalez on 02-20-2025 ALT [Catalytic activity/Vol] 26 U/L <35 [facility] Serum or plasma albumin danielle urement (mass/volume)Ordered By: Cleo Gonzalez on 02-20-2025 Albumin [Mass/Vol] 4.1 g/dL 3.5-5.0 [facility] Serum or plasma albumin/glob ulin mass ratioOrdered By: Cleo Gonzalez on 02-20-2025 Albumin/Globulin [Mass ratio] 1.5 {ratio} 0.9-2.4 [facility] Serum or plasma alkaline dm sphatase measurementOrdered By: Cleo Gonzalez on 02-20-2025 ALP [Catalytic activity/Vol] 76 U/L 35-104 [facility] Serum or plasma calcium danielle urement (mass/volume)Ordered By: Cleo Gonzalez on 02-20-2025 Calcium [Mass/Vol] 9.3 mg/dL 7.6-11.0 [facility] Serum or plasma urea nitroge n measurement (mass/volume)Ordered By: Cleo Gonzalez on 02-20-2025 Urea nitrogen [Mass/Vol] 9 mg/dL 4-19 [facility] Sodium levelOrdered By: Gokul Gonzalez on 02-20-2025 Sodium [Moles/Vol] 140 mmol/L 133-145 [facility] TSH DL <= 0.005 mIU/L QnOrde red By: Cleo Gonzalez on 02-20-2025 TSH Qn 2.140 uIU/mL 0.300-4.20 0 [facility] Thyroid Stim Hormone (TSH)on 02-20-2025 TSH 2.140 uIU/mL Normal 0.300-4.20 0 [facility] Comment on above: Performed By: #### L 501.7695, L500.4050, L100.0100, L503.0106, L506.1001 #### [facility] [address] [place], [address] Total proteinOrdered By: Raul Gonzalez on 02-20-2025 Protein [Mass/Vol] 6.8 g/dL 5.9-8.4 [facility] Vitamin B12on 02-20-2025 Cobalamin (Vitamin B12) [Mass/Vol] 339 pg/mL Normal 180-914 [facility] Comment on above: Performed By: #### L 501.9520, L500.4050, L100.0100, L503.0106, L506.1001 #### [facility] [address] [place], [address] Vitamin B12 ser/plasOrdered By: Cleo Gonzalez on 02-20-2025 Cobalamin (Vitamin B12) [Mass/Vol] 339 pg/mL 180-914 [facility] Vitamin D,25 Hydroxyon 02-20 Vitamin D 25-OH 35.4 ng/mL Normal 30-100 [facility] Comment on above: Result Comment: Maria Elena min D Status Deficiency: <20 ng/mL (50nmol/L) Insufficiency: 20-30 ng/mL (50-75 nmol/L) Sufficiency: 30-100 ng/mL (75-250 nmol/L) Toxicity: >100 ng/mL (>250 nmol/L) Performed By: #### L 4500.5000 #### [facility] [address] [place], [address] White blood cell (WBC) count Ordered By: Cleo Gonzalez on 02-20-2025 WBC (Bld) [#/Vol] 5.3 10*3/uL 4.4-11.0 [facility] Internal Medicine Office Vis itojackson 02-16-2025 Internal Medicine Office Visit [facility] [address] [place] [address] OFFICE VISIT Date of Service: 02/20/25 MR#: [id number] Acct: [id number] Name: MARTHA WARD A Rep #: [id number] : 1980 Provider: Dr. Cleo francisco MD Age/Sex: 44/F Location[facility] Status: Signed Intake Vital Signs 11/25/24 13:09 02/20/25 11:23 Height 5 ft 5 in 5 ft 5 in Weight: 268 lb BMI 44.6 BP 132/78 H Blood Pressure Location Rt brachial Position Sitting Respiration 16 Pulse 69 Pulse Source Monitor Temp 96.7 F L Temp Source Temporal Pulse Oximetry (%) 97 Oxygen Delivery Method room air Intake Visit Reasons: PHYSICAL FOR WORK Chief Complaint: physical for work Injection Molder Required: No Accompanied by: Self Is patient in pain?: No Allergies amoxicillin Allergy (Verified 02/20/25 11:22) Rash Sulfa (Sulfonamide Antibiotics) Allergy (Verified 02/20/25 11:22) Rash Medications ???Medication ???Instructions ???Recorded ???Confirmed ???Type escitalopram oxalate 10 mg tablet 10 mg PO QDAY #90 tabs 10/13/24 0 02/20/25 Rx PFSH Medical History Acute bacterial conjunctivitis IBS (irritable bowel syndrome) Arthritis Surgical History History of removal of ovarian cyst H/O tubal ligation History of hysterectomy Family History Grandmother Diabetes Grandfather Parkinson disease Mother Skin cancer Bleeding disorder factor 5 Sister Autoimmune disease sjogren's Aunt Autoimmune disease Social History (Updated 02/20/25 @ 11:[address] Cleo Gonzalez MD) household members: spouse and children current occupational status: employed current occupation: Works at [employer] Smoking Status: Never smoker Electronic Cigarette Use: not used alcohol intake: current alcohol intake frequency: a few times a week Alcohol type: wine details: 5 oz wine substance use type: does not use what type of physical activity do you participate in: walking frequency: daily do you feel safe at home: Yes Questionnaire PQH-9 BMS Over the last 2 weeks, how often have you been bothered by any of the following problems? 1. Little interest or pleasure in doing things: not at all 2. Feeling down, depressed, or hopeless: not at all 3. Trouble falling or staying asleep, or sleeping too much: several days 4. Feeling tired or having little energy: nearly every day 5. Poor appetite or overeating: not at all 6. Feeling bad about yourself - or that you are a failure or have let yourself and your family down: not at all 7. Trouble concentrating on things, such as reading the newspaper or watching television: not at all 8. Moving or speaking so slowly that other people could have noticed? - Or the opposite - being so fidgety or restless that you have been moving around a lot more than usual: not at all 9. Thoughts that you would be better off or of hurting yourself in some way: not at all Total score: 4 If you checked off any problems, how difficult have these problems made it for you to do your work, take care of things at home, or get along with other people?: not difficult at all Source: Developed by Drs. Eleazar Rojas, Susan Enciso, Jasen York and colleagues, with an educational otf from [employer]. MILLY-7 BMS MILLY-7 Feeling nervous, anxious, or on edge: 0 = Not at all Not being able to stop or control worryin = Not at all Worrying too much about different things: 1 = Several days Trouble relaxin = Not at all Being so restless that it is hard to sit still: 0 = Not at all Becoming easily annoyed or irritable: 1 = Several days Feeling afraid as if something awful might happen: 0 = Not at all Total MILLY-7 score (0-4 normal; 5-9 mild; 10-14 moderate; 15-21 severe): 2 Source: Developed by Drs. Eleazar Rojas, Susan Enciso, Jasen York and colleagues, with an educational otf from [employer]. HPI HPI Chief Complaint: physical for work Details: MARTHA WARD, is a 44 F who presents to the office today for a well visit. She is up to date on her routine blood work and is due for a mammogram.??? She isn't due for any immunizations.??? She doesn't smoke and does need refills. She is eating healthy. She hasn't been as active recently with the colder weather. She reports her anxiety has been doing better. She feels the lexapro is helping and she denies any problems with it. She denies any feelings of depression nor any thoughts of suicide. She reports her weight fluctuates. She is still doing weight watchers and walking at least a mile per day. Medications reviewed: Yes Martha likes to exercises by walking. They watch their diet for sodium, low (more content not included)... Normal [facility] Orthopedic Visit Reporton Orthopedic Visit Report [facility] [address] [place] [address] [address] [place] [address] OFFICE VISIT Date of Service: 11/25/24 MR#: [id number] Acct: [id number] Name: MARTHA WARD Rep #: [id number] : 1980 Provider: VIR[place] armstrong Age/Sex: 44/F Location: [facility] Status: Signed Intake Vital Signs 10/13/24 08:07 11/25/24 13:09 Height 5 ft 5 in 5 ft 5 in Weight: 250 lb BMI 41.5 Intake Visit Reasons: LEFT KNEE Chief Complaint: Left knee steroid injection Accompanied by: Self Is patient in pain?: Yes Pain scale (1-10): 5 Allergies amoxicillin Allergy (Verified 11/25/24 13:11) Rash Sulfa (Sulfonamide Antibiotics) Allergy (Verified 11/25/24 13:11) Rash Medications ???Medication ???Instructions ???Recorded ???Confirmed ???Type escitalopram oxalate 10 mg tablet 10 mg PO QDAY #90 tabs 10/13/24 0 11/25/24 Rx Have you fallen in the past year?: Yes [facility] [facility] Medical History Acute bacterial conjunctivitis IBS (irritable bowel syndrome) Arthritis Surgical History History of removal of ovarian cyst H/O tubal ligation History of hysterectomy Family History Grandmother Diabetes Grandfather Parkinson disease Mother Skin cancer Bleeding disorder factor 5 Sister Autoimmune disease sjogren's Aunt Autoimmune disease Social History household members: spouse and children current occupational status: employed current occupation: Works at [employer] Smoking Status: Never smoker Electronic Cigarette Use: not used alcohol intake: current alcohol intake frequency: a few times a week Alcohol type: wine details: 5 oz wine substance use type: does not use what type of physical activity do you participate in: walking frequency: daily do you feel safe at home: Yes HPI LEFT KNEE Details: This documentation accurately reflects the service provided and the decisions made by me, VIRGINIA Bowling 11/25/24 4540. Part of today???s visit was documented by Jennifer Cody MA, acting as scribe. MARTHA WARD is a 44 year old F here today for left knee pain. Patient is wanting a steroid injection today. Agree with above with further clarification: Martha is a pleasant 44-year-old female presenting today for left knee steroid injection. Patient was pending approval of viscosupplementation, however her insurance denied the injections stating she needs to try a steroid injection first and would like to pursue that today. Patient recently had a round of gel injections to the right knee with slight improvements of symptoms. No new injuries or concerns. Symptoms flare with increased activity and cold, damp weather changes. ROS [facility] Reports as per HPI and Reports arthralgias Ortho Exam Left Knee KNEE: Skin is pink, warm, dry and intact. There is no swelling or discoloration present Range of motion: 0 to 110 degrees Palpation: Positive crepitus on palpation, mild pain to medial joint line Special tests: Kat [Negative]; Samreen [Negative]; anterior drawer [Negative]; posterior drawer [Negative]; medial joint opening [Negative]; lateral joint opening [Negative] Gait: Slow steady gait with mild left-sided limp Office Procedures Ortho Injections Injections Yes Knee Left Is this a patient provided medication?: No Details: Obtained written and oral consent for injection. Under sterile conditions, skin was prepped with CHG and alcohol prep, topical pain ease spray applied; injected the patients left knee with 3cc 0.25% bupivacaine 3cc 1% lidocaine 1cc Kenalog (40mg) and was easily administered and tolerated well using a 22g 1 1/2 needle using a superior lateral approach. The patient tolerated the injection well without any noted complication, No bleeding postop, dry sterile bandage applied. Patient should call our office if redness develops, pain worsens or if they have any concerns. 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 Normal [facility] Orthopedic Visit Reporton Orthopedic Visit Report [facility] [address] [place] [address] OFFICE VISIT Date of Service: 11/04/24 MR#: [id number] Acct: [id number] Name: MARTHA WARD Rep #: [id number] : 1980 Provider: VIRGINIA armstrong Age/Sex: 44/F Location[facility] Status: Signed Intake Vital Signs 10/13/24 08:07 Height 5 ft 5 in Intake Visit Reasons: RIGHT KNEE Chief Complaint: 3rd Euflexxa Is patient in pain?: Yes (Right knee) Pain scale (1-10): 5 Allergies amoxicillin Allergy (Verified 11/04/24 10:02) Rash Sulfa (Sulfonamide Antibiotics) Allergy (Verified 11/04/24 10:02) Rash Medications ???Medication ???Instructions ???Recorded ???Confirmed ???Type escitalopram oxalate 10 mg tablet 10 mg PO QDAY #90 tabs 10/13/24 0 11/04/24 Rx doxycycline monohydrate 100 mg 100 mg PO BID 10 days #20 caps 11/04/24 Rx capsule PFSH Medical History Acute bacterial conjunctivitis IBS (irritable bowel syndrome) Arthritis Surgical History History of removal of ovarian cyst H/O tubal ligation History of hysterectomy Family History Grandmother Diabetes Grandfather Parkinson disease Mother Skin cancer Bleeding disorder factor 5 Sister Autoimmune disease sjogren's Aunt Autoimmune disease Social History household members: spouse and children current occupational status: employed current occupation: Works at [employer] Smoking Status: Never smoker Electronic Cigarette Use: not used alcohol intake: current alcohol intake frequency: a few times a week Alcohol type: wine details: 5 oz wine substance use type: does not use what type of physical activity do you participate in: walking frequency: daily do you feel safe at home: Yes HPI RIGHT KNEE Details: This documentation accurately reflects the service provided and the decisions made by me, Mery Calvo, [employer] 11/04/24 1000. Part of today???s visit was documented by Pretty Rojas RN, acting as scribe. MARTHA WARD is a 44 year old F here today for 3rd Euflexxa injection in the right knee. Agree with above. Martha is a pleasant 44-year-old female for Euflexxa injection #3/3 to the right knee. She reports approximately 40 to 50% improvement since initiating the series and feels she is increasing in activity with decreased pain. No adverse reactions from last week's injection and wishes to pursue today's injection as planned. Patient states she is also pursuing viscosupplementation for the other knee as well. ROS Const All systems reviewed are unremarkable except as noted in H and other (A O x 3, no apparent distress. No recent illness.) ENT Denies dizziness Card Denies chest pain, Denies dyspnea, Denies edema and Reports other (No palpitations) Resp Denies cough, Denies dyspnea and Reports other (No recent URI) GI Reports system reviewed and no additional complaints, except as documented, Denies nausea and Denies vomiting Musc Reports arthralgias and Reports stiffness Neuro No dizziness Psych Reports system reviewed and no additional complaints, except as documented Rodger/Lymph Denies easy bleeding and Denies easy bruising Ortho Exam General General: Yes no acute distress Neurologic: Yes alert and Yes oriented x3 Psychologic: Yes reasonable and appropriate Right Knee Skin/Wound: No erythema, No ecchymosis and No swelling Knee ROM: Yes ROM-Extension -20 to 0 and Yes ROM-Flexion 0-140 (110) Examination: Yes Med jt line tenderness Patellar Tilt Normal: Yes KNEE: no effusion present Full range of distal joints with no symptom aggravation Distal motor or sensory intact with brisk cap refill at 2 seconds Office Procedures Euflexxa Procedure Details:: Verbal and written consent obtained for injection. Skin was prepped with Betadine and alcohol prep, topical pain ease spray applied; injected the patients right knee with 2 mL Euflexxa #3/3 and was easily administered and tolerated well using a 22g 1 1/2 needle to the superior lateral aspect. The patient tolerated the injection well without any noted complication, No bleeding postop, dry sterile bandage applied. injected the patients right knee with 20mg/2mL of Euflexxa. The patient tolerated the injection well without any noted complication. Patient should call our office if redness develops, pain worsens or if they have any concerns. Is this Buy Bill?: Yes Office Meds Euflexxa 10 mg/mL (mw 2.4-3.6 million) intra-articular syringe Performing Provider: VIRGINIA Bowling Performing Location: [facility] Administered by: Mery (more content not included)... Normal [facility] Urgent Care Visit Reporton 0 10-28-2024 Urgent Care Visit Report [facility] [address], [address] [place] [address] OFFICE VISIT Date of Service: 10/28/24 MR#: [id number] Acct: [id number] Name: MARTHA WARD Rep #: [id number] : 1980 Provider: MIKE Copeland Age/Sex: 44/F Location: [facility] Status: Signed Intake Vital Signs 10/13/24 08:07 10/28/24 15:49 Height 5 ft 5 in Weight: 257 lb BMI 42.7 BP 128/72 H 130/78 H Blood Pressure Location Lt brachial Lt brachial Position Sitting Sitting Respiration 18 16 Pulse 78 65 Pulse Source Monitor NIBP Temp 98.2 F 98.6 F Temp Source Temporal Oral Pulse Oximetry (%) 96 96 Oxygen Delivery Method room air room air Intake Visit Reasons: CONCERN FOR SINUS INFECTION Chief Complaint: face pain, cough, mucus Injection Molder Required: No Is patient in pain?: Yes Allergies amoxicillin Allergy (Verified 10/28/24 15:50) Rash Sulfa (Sulfonamide Antibiotics) Allergy (Verified 10/28/24 15:50) Rash Is last menstrual period known: No Post menopausal: No Patient : No Have you fallen in the past year?: No Nurse's Note: face pain, cough, mucus x 10-14 days. denies fever. concern for sinus infection PFSH Medical History Acute bacterial conjunctivitis IBS (irritable bowel syndrome) Arthritis Surgical History History of removal of ovarian cyst H/O tubal ligation History of hysterectomy Family History Grandmother Diabetes Grandfather Parkinson disease Mother Skin cancer Bleeding disorder factor 5 Sister Autoimmune disease sjogren's Aunt Autoimmune disease Social History household members: spouse and children current occupational status: employed current occupation: Works at [employer] Smoking Status: Never smoker Electronic Cigarette Use: not used alcohol intake: current alcohol intake frequency: a few times a week Alcohol type: wine details: 5 oz wine substance use type: does not use what type of physical activity do you participate in: walking frequency: daily do you feel safe at home: Yes HPI HPI Chief Complaint: face pain, cough, mucus Details: MARTHA WARD is a 44 F who presents to the office today for complaint of sinus pain and pressure as well as cough and increased mucus production for the past 2 weeks. Patient denies fever, chills or sweats. No nausea, vomiting or diarrhea. No hemoptysis, shortness of breath or difficulty breathing. No loss taste or smell. No other associated symptoms or alleviating/aggravating factors. ROS Const Constitutional: No other (6 system ROS completed with pertinent findings in the HPI otherwise normal.) Exam Const General: cooperative and healthy appearing HENMD Head: normal to inspection Ears: hearing grossly normal bilaterally, TM's normal bilaterally and EAC's normal Nose: nasal discharge purulent Face and sinus: sinus tenderness frontal and maxillary Mouth: oral mucosae normal Throat: abnormal tonsil bilaterally erythema and hypertrophy 1+ and postnasal drainage Resp Effort Inspection: normal respiratory effort Auscultation: Bilateral: Clear to Auscultation Cardio Palpation: normal PMI Rate: regular rate Rhythm: regular rhythm Neuro General: patient alert and CN's II-XI intact bilaterally Psych Appearance: grossly normal Mental Status: mental status grossly normal Coding Level of Care Code Off vis,est,level 3 Diagnoses Acute sinusitis J01.90 Assessment and Plan Assessment and Plan (1) Acute sinusitis: Status: Acute Plan: Doxycycline as prescribed today. Encouraged to get plenty of rest, drink lots of clear liquids, and use Tylenol or Ibuprofen (unless contraindicated) for fever and comfort. Patient also educated on other symptomatic management techniques. To be seen in 7-10 days if no improvement; sooner if worsening of symptoms. Patient advised of potential red flags and when appropriate to report to the ED. Patient verbalized understanding and agreement with all the above. Medications: New doxycycline monohydrate 100 mg PO BID 20 caps 0RF 10 days Clinical Quality Measures Falls Risk Screening/Assistive Devices Have you fallen in the past year?: No 10/28/24 1657 Date Sekou Albarran Signature: Date (if applicable) CC: Normal [facility] Orthopedic Visit Reporton Orthopedic Visit Report [facility] [address] [place], [place] [id number] OFFICE VISIT Date of Service: 10/27/24 MR#: [id number] Acct: [id number] Name: MARTHA WARD Rep #: [id number] : 1980 Provider: VIRGINIA armstrong Age/Sex: 44/F Location: [facility] Status: Signed Intake Vital Signs 10/13/24 08:07 Height 5 ft 5 in Intake Visit Reasons: RIGHT KNEE Allergies amoxicillin Allergy (Verified 10/27/24 10:28) Rash Sulfa (Sulfonamide Antibiotics) Allergy (Verified 10/27/24 10:28) Rash Medications ???Medication ???Instructions ???Recorded ???Confirmed ???Type escitalopram oxalate 10 mg tablet 10 mg PO QDAY #90 tabs 10/13/24 0 10/27/24 Rx PFSH Medical History Acute bacterial conjunctivitis IBS (irritable bowel syndrome) Arthritis Surgical History History of removal of ovarian cyst H/O tubal ligation History of hysterectomy Family History Grandmother Diabetes Grandfather Parkinson disease Mother Skin cancer Bleeding disorder factor 5 Sister Autoimmune disease sjogren's Aunt Autoimmune disease Social History household members: spouse and children current occupational status: employed current occupation: Works at [employer] Smoking Status: Never smoker Electronic Cigarette Use: not used alcohol intake: current alcohol intake frequency: a few times a week Alcohol type: wine details: 5 oz wine substance use type: does not use what type of physical activity do you participate in: walking frequency: daily do you feel safe at home: Yes HPI RIGHT KNEE Details: This documentation accurately reflects the service provided and the decisions made by me, VIRGINIA Bowling 10/27/24 1024. Part of today???s visit was documented by Pao BOX, acting as scribe. MARTHA WARD is a 44 year old F here today for 2nd right knee Euflexxa injection. Agree with above. Martha is a pleasant 44-year-old female presenting today for Euflexxa injection #2/3 at the right knee for diagnosis of knee OA. Patient has had multiple series of the gel injec tions and gets approximately 8 to 12 months relief with the injections. She is currently pending approval for left knee injections as well. Denies any adverse reaction from last week shots, wishes to pursue injection as scheduled. ROS Const All systems reviewed are unremarkable except as noted in H and other (A O x 3, no apparent distress. No recent illness.) ENT Denies dizziness Card Denies chest pain, Denies dyspnea, Denies edema and Reports other (No palpitations) Resp Denies cough, Denies dyspnea and Reports other (No recent URI) GI Reports system reviewed and no additional complaints, except as documented, Denies nausea and Denies vomiting Musc Reports arthralgias and Reports stiffness Neuro No dizziness Psych Reports system reviewed and no additional complaints, except as documented Rodger/Lymph Denies easy bleeding and Denies easy bruising Ortho Exam General General: Yes no acute distress Neurologic: Yes alert and Yes oriented x3 Psychologic: Yes reasonable and appropriate Right Knee Skin/Wound: No erythema, No ecchymosis and No swelling Knee ROM: Yes ROM-Extension -20 to 0 and Yes ROM-Flexion 0-140 (110) Examination: Yes Med jt line tenderness, Yes Lat jt line tenderness, No Kat's Test and No TTP Pes Anserine Patellar Tilt Normal: Yes KNEE: no effusion present Positive audible and palpable crepitus with range of motion Full range of distal joints with no symptom aggravation Distal motor or sensory intact with brisk cap refill at 2 seconds Office Procedures Euflexxa Procedure Details:: Verbal and written consent obtained for injection. Skin was prepped with CHG and alcohol prep, topical pain ease spray applied; injected the patients right knee with 2 mL Euflexxa #2/3 and was easily administered and tolerated well using a 22g 1 1/2 needle to the superior lateral aspect. The patient tolerated the injection well without any noted complication, No bleeding postop, dry sterile bandage applied. injected the patients right knee with 20mg/2mL of Euflexxa. The patient tolerated the injection well without any noted complication. Patient should call our office if redness develops, pain worsens or if they have any concerns. Is this Buy Bill?: No Office Meds Euflexxa 10 mg/mL (mw 2.4-3.6 million) intra-articular syringe Performing Provider: VIRGINIA Bowling Performing Location: [facility] Administered by: VIRGINIA Bowling on 10/27/24 10:38 Dose Route Admin Location Dispen (more content not included)... Normal [facility] Orthopedic Visit Reporton Orthopedic Visit Report [facility] [address] [place] [address] [address] [place] [address] OFFICE VISIT Date of Service: 10/19/24 MR#: [id number] Acct: [id number] Name: MARTHA WARD Rep #: [id number] : 1980 Provider: Dr. Rob duran DO Age/Sex: 44/F Location: [facility] Status: Signed Intake Vital Signs 10/13/24 08:07 Height 5 ft 5 in Weight: 257 lb BMI 42.7 BP 128/72 H Blood Pressure Location Lt brachial Position Sitting Respiration 18 Pulse 78 Pulse Source Monitor Temp 98.2 F Temp Source Temporal Pulse Oximetry (%) 96 Oxygen Delivery Method room air Intake Visit Reasons: RIGHT KNEE Accompanied by: Allergies amoxicillin Allergy (Verified 10/19/24 10:57) Rash Sulfa (Sulfonamide Antibiotics) Allergy (Verified 10/19/24 10:57) Rash Medications ???Medication ???Instructions ???Recorded ???Confirmed ???Type escitalopram oxalate 10 mg tablet 10 mg PO QDAY #90 tabs 10/13/24 0 10/19/24 Rx PFSH Medical History Acute bacterial conjunctivitis IBS (irritable bowel syndrome) Arthritis Surgical History History of removal of ovarian cyst H/O tubal ligation History of hysterectomy Family History Grandmother Diabetes Grandfather Parkinson disease Mother Skin cancer Bleeding disorder factor 5 Sister Autoimmune disease sjogren's Aunt Autoimmune disease Social History household members: spouse and children current occupational status: employed current occupation: Works at [employer] Smoking Status: Never smoker Electronic Cigarette Use: not used alcohol intake: current alcohol intake frequency: a few times a week Alcohol type: wine details: 5 oz wine substance use type: does not use what type of physical activity do you participate in: walking frequency: daily do you feel safe at home: Yes HPI RIGHT KNEE Details: This documentation accurately reflects the service provided and the decisions made by me, Dr. Rob Craft DO 10/19/24 0751. Part of today???s visit was documented by Pao BOX, acting as scribe. MARTHA WARD is a 44 year old F here today for 1st right knee Euflexxa injection. Ortho Exam General General: Yes no acute distress Neurologic: Yes alert and Yes oriented x3 Psychologic: Yes reasonable and appropriate Right Knee Skin/Wound: No erythema, No ecchymosis and No swelling Knee ROM: Yes ROM-Extension -20 to 0 and Yes ROM-Flexion 0-140 (110) Examination: Yes Med jt line tenderness, Yes Lat jt line tenderness, No Kat's Test and No TTP Pes Anserine Stability: NML: Anterior Drawer, NML: Posterior Drawer, NML: Valgus 0, NML: Valgus 30, NML: Varus 0 and NML: Varus 30 Patellar Tilt Normal: Yes KNEE: no effusion Office Procedures Euflexxa Procedure Details:: Obtained consent for injection. Under sterile conditions, injected the patients right knee with 20mg/2mL of Euflexxa. The patient tolerated the injection well without any noted complication. Patient should call our office if redness develops, pain worsens or if they have any concerns. Is this Buy Bill?: No Office Meds Euflexxa 10 mg/mL (mw 2.4-3.6 million) intra-articular syringe Performing Provider: Rob Craft DO Performing Location: [facility] Administered by: Rob Craft DO on 10/19/24 11:01 Dose Route Admin Location Dispensed Lot Number Expiration Date [facility] Man ufacturer 20 mg intra-articular right knee 2 mL [id number] 07/30/25 [address]-6 [employer] Supplemental Info 09/05/2024 x-ray left foot: she does have a bunion and there is some mild degenerative change at the first MTP joint [facility] 06/03/2024 x-ray bilateral AP tunnel view with right knee lateral and sunrise view demonstrating left mild to moderate lateral compartment spurring right moderate to severe lateral patellar facet narrowing and arthrosis 02/02/2024 MRI left knee [facility]: Lateral subluxation of the patella with lateral pressure syndrome grade III chondromalacia lateral compartment capsulitis, grade III chondromalacia trochlear groove [facility] 01/21/2024 x-ray left knee lateral sunrise views moderate lateral patellar facet narrowing and arthrosis 10/17/2021 MRI right knee [facility]: Patellar maltracking with patellofemoral arthropathy focal grade IV chondromalacia of the lateral patellar facet grade III chondromalacia lateral femoral condyle Coding Level of Care Code Off vis,est,level 3 Diagnoses Primary osteoarthritis of right knee M17.11 Osteoarthr (more content not included)... Normal [facility] Bilirubin directOrdered By: Cleo Gonzalez on 10-13-2024 Bilirubin.direct [Mass/Vol] 0.12 mg/dL 0.00-0.30 [facility] Bilirubin, totalOrdered By: Cleo Gonzalez on 10-13-2024 Bilirubin [Mass/Vol] 0.27 mg/dL 0.00-1.30 [facility] - Chemistry and C hemistry - challengeOrdered By: Cleo Gonzalez on 10-13-2024 AST [Catalytic activity/Vol] 24 U/L <32 [facility] Liver Profileon 10-13-2024 Albumin [Mass/Vol] 4.1 g/dL Normal 3.5-5.0 [facility] Comment on above: Performed By: #### L 692.4270 #### [facility] [address] [place], [address] ALK PHOS 63 U/L Normal 35-104 [facility] Comment on above: Performed By: #### L 500.4620 #### [facility] [address] [place], [address] ALT [Catalytic activity/Vol] 20 U/L Normal <=34 [facility] Comment on above: Performed By: #### L 500.3400 #### [facility] [address] [place], [address] AST [Catalytic activity/Vol] 24 U/L Normal <=31 [facility] Comment on above: Performed By: #### L 500.3400 #### [facility] [address] [place], [address] Bilirubin [Mass/Vol] 0.27 mg/dL Normal 0.00-1.30 [facility] Comment on above: Performed By: #### L 500.3400 #### [facility] [address] [place], [address] Bilirubin.direct [Mass/Vol] 0.12 mg/dL Normal 0.00-0.30 [facility] Comment on above: Performed By: #### L 500.3400 #### [facility] [address] [place], [address] Globulin (S) [Mass/Vol] 2.5 g/dL Normal 2.2-4.2 [facility] Comment on above: Performed By: #### L 500.3400 #### [facility] [address] [place], [address] T PROT 6.6 g/dL Normal 5.9-8.4 [facility] Comment on above: Performed By: #### L 500.3400 #### [facility] [address] [place], [address] Serum globulin measurementOr dered By: Cleo Gonzalez on 10-13-2024 Globulin (S) [Mass/Vol] 2.5 g/dL 2.2-4.2 [facility] Serum or plasma alanine davila otransferase (ALT) measurementOrdered By: Cleo Gonzalez on 10-13-2024 ALT [Catalytic activity/Vol] 20 U/L <35 [facility] Serum or plasma albumin danielle urement (mass/volume)Ordered By: Cleo Gonzalez on 10-13-2024 Albumin [Mass/Vol] 4.1 g/dL 3.5-5.0 [facility] Serum or plasma alkaline dm sphatase measurementOrdered By: Cleo Gonzalez on 10-13-2024 ALP [Catalytic activity/Vol] 63 U/L 35-104 [facility] Total proteinOrdered By: Raul Gonzalez on 10-13-2024 Protein [Mass/Vol] 6.6 g/dL 5.9-8.4 [facility] Internal Medicine Office Vis iton 10-12-2024 Internal Medicine Office Visit [facility] [address] [place] [address] [place] [address] OFFICE VISIT Date of Service: 10/13/24 MR#: [id number] Acct: [id number] Name: MARTHA WARD Rep #: [id number] : 1980 Provider: Dr. Cleo francisco MD Age/Sex: 44/F Location[facility] Status: Signed Intake Vital Signs 08/18/24 09:53 09/05/24 13:09 10/13/24 08:07 Height 5 ft 5 in 5 ft 5 in 5 ft 5 in Weight: 257 lb BMI 42.7 BP 128/72 H Blood Pressure Location Lt brachial Position Sitting Respiration 18 Pulse 78 Pulse Source Monitor Temp 98.2 F Temp Source Temporal Pulse Oximetry (%) 96 Oxygen Delivery Method room air Intake Visit Reasons: FOLLOW UP Chief Complaint: Follow up Is patient in pain?: No Allergies amoxicillin Allergy (Verified 10/13/24 08:08) Rash Sulfa (Sulfonamide Antibiotics) Allergy (Verified 10/13/24 08:08) Rash Medications ???Medication ???Instructions ???Recorded ???Confirmed ???Type escitalopram oxalate 10 mg tablet 10 mg PO QDAY #90 tabs 10/13/24 0 10/13/24 Rx Have you fallen in the past year?: Yes (x3) PFSH Medical History Acute bacterial conjunctivitis IBS (irritable bowel syndrome) Arthritis Surgical History History of removal of ovarian cyst H/O tubal ligation History of hysterectomy Family History Grandmother Diabetes Grandfather Parkinson disease Mother Skin cancer Bleeding disorder factor 5 Sister Autoimmune disease sjogren's Aunt Autoimmune disease Social History household members: spouse and children current occupational status: employed current occupation: Works at [employer] Smoking Status: Never smoker Electronic Cigarette Use: not used alcohol intake: current alcohol intake frequency: a few times a week Alcohol type: wine details: 5 oz wine substance use type: does not use what type of physical activity do you participate in: walking frequency: daily do you feel safe at home: Yes HPI HPI Chief Complaint: Follow up Details: MARTHA WARD, is a 44 F who presents to the office today for a follow up. She is due for some follow up blood work and is up to date on her screening.??? She isn't due for any immunizations.??? She doesn't smoke and does need refills. She is eating healthy. She hasn't been as active recently with the colder weather. At her last office visit, she had concerns about her anxiety flaring up. Medications were discussed and she was agreeable to starting lexapro. She reports that she has noticed an improvement in her symptoms. She doesn't feel as anxious. She denies any feelings of depression nor any thoughts of suicide. She reports her menopausal symptoms of hot flashes, restlessness, fatigue and irritability have been about the same. She does feel that she still has some brain fog where she is more forgetful. She hasn't noticed much of a difference with the lexapro. She reports her TMJ symptoms have been doing better as well. She also had concerns about dizziness. She reports those symptoms have resolved. Finally, she had concerns about her weight and stated she was going to look into weight watchers. She reports that she has been losing inches and her clothes seem to be fitting better. She did start the weight watchers, so she is doing better on her diet. She still isn't very active due to the colder weather, but hopes to walk more once it starts warming up. The patient reports she had a few falls over the ice. She injured her elbow and ankle. She states both are starting to feel better, however. She did see orthopedics. ROS Const Constitutional: Positive for excessive sweating and fatigue; No body ache, chills, fever(s), frequent falls, headache(s), snoring, weakness, weight change, sleep problems, abnormal sleep pattern or change in appetite Eyes Eyes: No blurry vision, change in vision, eye pain or Light sensitivity ENT ENT: No abnormal hearing, ear or mastoid pain, tinnitus, nasal congestion, headache(s), neck pain or sore throat Resp Respiratory: No cough, shortness of breath, snoring or wheezing Cardio Cardiology: Positive for excessive sweating; No chest pain at rest, chest pain with exertion, shortness of breath, dyspnea on exertion, lightheadedness, orthopnea, palpitations or other (no leg swelling) Gastro GI: No abdominal pain, change in bowel habits, constipation, cramping, diarrhea, nausea/dyspepsia or vomiting Genitourinary-Female: Positive for urinary frequency; No difficulty urinating, burning urination, painful urination, urinary incontinence, abnormal vaginal bleeding or pelvic pain Musc (more content not included)... Normal [facility] Foot min 3 Viewson 5 Foot min 3 Views [facility] [address] [place] [address] Foot min 3 Views MR#: [id number] Acct: [id number] Name: MARTHA WARD Rep #: [id number] : 1980 F 44 From: Mehran head DO PCP: Dr. Cleo Gonzalez MD Status: DEP AMB Study: Foot min 3 Views Date of Exam: 09/05/24 Exam# [id number] Ordering Dr: Rob Craft DO [id number] EXAM: XR LEFT FOOT COMPLETE, 3 OR MORE VIEWS CLINICAL INDICATION: pain TECHNIQUE: Frontal, lateral and oblique views of the left foot. COMPARISON: No relevant prior studies available. FINDINGS: BONES/JOINTS: Either bipartite sesamoid versus sesamoid fracture at the first metatarsophalangeal joint. Minimal calcaneal spurs. No sclerotic or destructive changes observed. SOFT TISSUES: No significant abnormality. No soft tissue swelling or gas. No radiopaque foreign body. RAD/Foot min 3 Views IMPRESSION: Either bipartite sesamoid versus sesamoid fracture at the first metatarsophalangeal joint. Electronically Signed: Mehran Duggan DO at 21:56 EST , CC: Dr. Cleo Gonzalez MD; Dr. Rob Craft DO Director Of Social Media Marketing: Signed Normal [facility] Orthopedic Visit Reporton Orthopedic Visit Report [facility] [address] [place] [address] OFFICE VISIT Date of Service: 09/05/24 MR#: [id number] Acct: [id number] Name: MARTHA WARD Rep #: [id number] : 1980 Provider: Dr. Rob duran DO Age/Sex: 44/F Location: [facility] Status: Signed Intake Vital Signs 12/22/23 12:00 08/27/24 13:16 09/05/24 13:09 Height 5 ft 5 in 5 ft 5 in 5 ft 5 in Weight: 258 lb 4 oz BMI 43.0 Intake Visit Reasons: BILATERAL KNEES Chief Complaint: bilateral knees, left foot Allergies amoxicillin Allergy (Verified 09/05/24 13:10) Rash Sulfa (Sulfonamide Antibiotics) Allergy (Verified 09/05/24 13:10) Rash Medications ???Medication ???Instructions ???Recorded ???Confirmed ???Type escitalopram oxalate 5 mg tablet 5 mg PO QDAY #30 tabs 08/18/24 09/05/24 [facility] Medical History Acute bacterial conjunctivitis IBS (irritable bowel syndrome) Arthritis Surgical History History of removal of ovarian cyst H/O tubal ligation History of hysterectomy Family History Grandmother Diabetes Grandfather Parkinson disease Mother Skin cancer Bleeding disorder factor 5 Sister Autoimmune disease sjogren's Aunt Autoimmune disease Social History household members: spouse and children current occupational status: employed current occupation: Works at [employer] Smoking Status: Never smoker Electronic Cigarette Use: not used alcohol intake: current alcohol intake frequency: a few times a week Alcohol type: wine details: 5 oz wine substance use type: does not use what type of physical activity do you participate in: walking frequency: daily do you feel safe at home: Yes HPI BILATERAL KNEES Details: This documentation accurately reflects the service provided and the decisions made by me, Dr. Rob Craft, 09/05/24 0817. Part of today???s visit was documented by Pao BOX, acting as scribe. MARTHA WARD is a 44 year old F for bilateral knee pain and a left foot injury. She states that back in May she was supposed to have gel injection but they stopped doing them. She has been having issues for 3-4 years but the right knee is worse. She did have the gel injections in the left knee in February. She has had 3 series of gel injection on her right knee and her last was August of 2023. Her pain is over her anterior knee and sometime posterior. She does sometimes get popping and cracking which is sometimes painful. She has been told that she needs a knee replacement on the right knee. She denies previous surgery on either knee. She sometimes take Ibuprofen for pain which doesn't seem to help much. She has tried Meloxicam in the past which did help her some. She has had recent xrays and MRI of her knees at [facility]. The gel injections have been helpful and typically cd storage and materials make up helper her relief for about 6 months. She sometimes gets some catching in her right knee. In regards to her left foot her injury was on 09/01 and she has hyperflexed her foot back. Her pain in the foot is over her MTP joint. She did have xrays at [facility] urgent care in [place]. She is also using a cast shoe to ambulate on that foot. She states that they told her it was just a soft tissue sprain. Ortho Exam General General: Yes no acute distress Neurologic: Yes alert and Yes oriented x3 Psychologic: Yes reasonable and appropriate Right Knee Skin/Wound: No erythema, No ecchymosis and No swelling Knee ROM: Yes ROM-Extension -20 to 0 and Yes ROM-Flexion 0-140 (110) Examination: Yes Med jt line tenderness, Yes Lat jt line tenderness, No Kat's Test and No TTP Pes Anserine Stability: NML: Anterior Drawer, NML: Posterior Drawer, NML: Valgus 0, NML: Valgus 30, NML: Varus 0 and NML: Varus 30 Patella Translation: 1 Patellar Tilt Normal: Yes KNEE: no effusion Left Knee Skin/Wound: No ecchymosis, No erythema and No swelling Homans Sign: No Knee ROM: Yes ROM-Extension -20 to 0 and Yes ROM-Flexion 0-140 (93) Examination: Yes med jt line tenderness and Yes Lat jt line tenderness Stability: NML: Anterior Drawer, NML: Posterior Drawer, NML: Valgus 0, NML: Valgus 30, NML: Varus 0 and NML: Varus 30 Patella Translation: 1 KNEE: no effusion Left Foot/Ankle Skin: No Ecchymosis, Soft Tissue Swelling or Erythema Exam: No Ecchymosis, Soft tissue swelling or Erythema Motor: EHL: 5 ANKLE: pain over bottom of 1st MTP intact flexor and extensor tendon no ecchymosis no collateral instability Supplemental Info 09/05/2024 x-ray left foot: she does have a bunion and there is some mi (more content not included)... Normal [facility] Neo 09-01-2024 CN Office Visit (UCWSTR ) MARTHA WARD ([id number]) 1980 F Date Time Provider Department 09/01/24 12:00 PM MATTI ANDERSON [facility] During your visit today, we recorded the following information about you: Temperature Pulse Respiration Blood pressure 98.6 degrees 67/minute 20/minute 130/78 Weight 115 kg Matti Anderson PA-C 09/01/2024 12:39 PM Signed This note was created using [employer]. Subjective Martha Ward is a 44 year old female. Is a 44-year-old female who complains of pain and swelling to her left foot and ankle secondary to fall injury that she sustained approximately 2 hours prior to arrival today. Patient reports that she was descending steps outside her home when she slipped and twisted her left foot and ankle immediately. Patient also states that she bent her left foot backwards. Patient reports no paresthesia or paralysis and is able to bear weight although it is painful to do so. Patient has no history of fracture or surgery to her left foot and ankle. Patient denies pain or injury to her left hip and knee. Trauma Review of Systems Musculoskeletal: Left Foot Pain; Left Ankle Pain All other systems reviewed and are negative. Objective BP 130/78 Pulse 67 Temp 37 ?C (98.6 ?F) Resp 20 Wt 115 kg (253 lb 8.5 oz) LMP 09/13/2014 SpO2 98% BMI 42.19 kg/m? Physical Exam Vitals and nursing note reviewed. Constitutional: Appearance: Normal appearance. She is normal weight. HENT: Head: Normocephalic and atraumatic. Nose: Nose normal. Mouth/Throat: Mouth: Mucous membranes are moist. Pharynx: Oropharynx is clear. Eyes: Extraocular Movements: Extraocular movements intact. Conjunctiva/sclera: Conjunctivae normal. Pupils: Pupils are equal, round, and reactive to light. Cardiovascular: Rate and Rhythm: Normal rate. Pulses: Normal pulses. Pulmonary: Effort: Pulmonary effort is normal. Breath sounds: Normal breath sounds. Musculoskeletal: General: Swelling, tenderness and signs of injury present. No deformity. Cervical back: Normal range of motion and neck supple. Right lower leg: No edema. Left lower leg: No edema. Comments: Tenderness with palpation to the dorsal left foot. No crepitus or deformity is noted with palpation. Overlying skin is clear without erythema or ecchymosis. Patient demonstrates decreased range of motion in plantarflexion and dorsiflexion secondary to pain. Patient does demonstrate good range of motion to the left toes. Patient demonstrates antalgic gait with ambulation. Skin: General: Skin is warm and dry. Capillary Refill: Capillary refill takes less than 2 seconds. Findings: No bruising or erythema. Neurological: General: No focal deficit present. Mental Status: She is alert and oriented to person, place, and time. Psychiatric: Mood and Affect: Mood normal. Behavior: Behavior normal. Thought Content: Thought content normal. Judgment: Judgment normal. Assessment and Plan Physical exam findings as noted above. X-ray left foot is negative for acute findings as reported by the radiologist. X-ray left ankle is negative for acute findings as reported by the radiologist. An Ortho shoe was placed to the patient's left foot myself with MSP intact pre and postplacement. Patient was strongly encouraged to schedule appointment with the encoding machine operator for further evaluation and management of her left foot sprain. RICE and supportive care was discussed and the patient verbalizes excellent understanding of same. CLINICAL IMPRESSION: Sprain/Strain Left Foot ASSESSMENT/PLAN: 1. Foot sprain, left, initial encounter - ICD9: 845.10, ICD10: S93.602A - XR FOOT GENERAL 3V AP/LAT/OBL LEFT - XR ANKLE GENERAL 3V AP/LAT/OBL LEFT Matti KHURRAM Anderson Allergies As of Date: 09/01/2024 Noted Allergy Reaction AMOXICILLIN 11/14/2014 4 - Hives SULFACETAMIDE 05/10/2012 14 - Other: See Comments Comments: Eye gtts Date Reviewed: 09/01/2024 Reviewed by: Tati Croft LPN - Fully Assessed Reason for Visit: Trauma [112] Cmt: Fall, rolled ankle,/foot, twisted foot behind her, LROM, swelling, painful from arch on bottom through the top x 2 hours Primary Visit Diagnosis:Foot sprain, left, initial encounter [S93.602A] Order(s):XR FOOT GENERAL 3V AP/LAT/OBL LEFT [[id number]] Order #: [id number]. #:[id number] [id number] XR ANKLE GENERAL 3V AP/LAT/OBL LEFT [[id number]] Order #: [id number] #:[id number] [id number] Prescriptions as of 09/01/2024 - escitalopram oxalate (LEXAPRO) 5 mg tablet Take 1 tablet by mouth every afternoon. - EYALURONIC ACID 10 mg/mL(mw 2.4 -3.6 million) injection INJECT 1 DOSE ONCE A WEEK FOR THE LEFT KNEE FOR 3 WEEKS - meloxicam (MOBIC) 15 mg tablet Take 1 tablet by mouth every afternoon. - predniSONE (DELTASONE) 10 mg tablet Take 4 tabs daily for 3 days, then 2 tabs daily for 3 days, then 1 t (more content not included)... Normal [facility] No Panel Informationon 09-01 Radiology Study observation (narrative) XR ANKLE 3V AP/LAT/OBL LTon 09-01-2024 XR ANKLE 3V AP/LAT/OBL LT * * *Final Report* * * DATE OF EXAM: Sep 01 2024 12:17PM WOX [id number] - XR ANKLE 3V AP/LAT/OBL LT / PROCEDURE REASON: Foot sprain, left, initial encounter * * * * Physician Interpretation * * * * EXAMINATION: XR ANKLE 3V AP/LAT/OBL LT, XR FOOT 3V AP/LAT/OBL LT CLINICAL HISTORY: Left ankle and left foot pain after fall Technique: XR ANKLE 3V AP/LAT/OBL LT, XR FOOT 3V AP/LAT/OBL LT -- LEFT with 3 views on 3 images Comparison: None RESULT: No acute fracture or dislocation. Joint spaces are maintained. IMPRESSION: No acute osseous abnormality Director Of Social Media Marketing: PSCB Transcribe Date/Time: Sep 01 2024 12:18P Dictated by : ASIM GANT MD This examination was interpreted and the report reviewed and electronically signed by: ASIM GANT MD on Sep 01 2024 12:20PM EST [id number] Normal [facility] XR Ankle - left AP and Later al and obliqueon 09-01-2024 IMPRESSION: No acute osseous abnormality Director Of Social Media Marketing: PSCB Transcribe Date/Time: Sep 01 2024 12:18P Dictated by : ASIM GANT MD This examination was interpreted and the report reviewed and electronically signed by: ASIM GANT MD on Sep 01 2024 12:20PM [facility] DIVISION OF RADIOLOGY * * *Final Report* * * DATE OF EXAM: Sep 01 2024 12:17PM WOX 5298 - XR ANKLE 3V AP/LAT/OBL LT / PROCEDURE REASON: Foot sprain, left, initial encounter * * * * Physician Interpretation * * * * EXAMINATION: XR ANKLE 3V AP/LAT/OBL LT, XR FOOT 3V AP/LAT/OBL LT CLINICAL HISTORY: Left ankle and left foot pain after fall Technique: XR ANKLE 3V AP/LAT/OBL LT, XR FOOT 3V AP/LAT/OBL LT -- LEFT with 3 views on 3 images Comparison: None RESULT: No acute fracture or dislocation. Joint spaces are maintained. DIVISION OF RADIOLOGY Provider, [facility] - 09/01/2024 * * *Final Report* * * DATE OF EXAM: Sep 01 2024 12:17PM WOX 5298 - XR ANKLE 3V AP/LAT/OBL LT / PROCEDURE REASON: Foot sprain, left, initial encounter * * * * Physician Interpretation * * * * EXAMINATION: XR ANKLE 3V AP/LAT/OBL LT, XR FOOT 3V AP/LAT/OBL LT CLINICAL HISTORY: Left ankle and left foot pain after fall Technique: XR ANKLE 3V AP/LAT/OBL LT, XR FOOT 3V AP/LAT/OBL LT -- LEFT with 3 views on 3 images Comparison: None RESULT: No acute fracture or dislocation. Joint spaces are maintained. IMPRESSION IMPRESSION: No acute osseous abnormality Director Of Social Media Marketing: PSCB Transcribe Date/Time: Sep 01 2024 12:18P Dictated by : ASIM GANT MD This examination was interpreted and the report reviewed and electronically signed by: ASIM GANT MD on Sep 01 2024 12:20PM [facility] XR FOOT 3V AP/LAT/OBL LTon 0 09-01-2024 XR FOOT 3V AP/LAT/OBL LT * * *Final Report* * * DATE OF EXAM: Sep 01 2024 12:17PM WOX [id number] - XR FOOT 3V AP/LAT/OBL LT / PROCEDURE REASON: Foot sprain, left, initial encounter * * * * Physician Interpretation * * * * EXAMINATION: XR ANKLE 3V AP/LAT/OBL LT, XR FOOT 3V AP/LAT/OBL LT CLINICAL HISTORY: Left ankle and left foot pain after fall Technique: XR ANKLE 3V AP/LAT/OBL LT, XR FOOT 3V AP/LAT/OBL LT -- LEFT with 3 views on 3 images Comparison: None RESULT: No acute fracture or dislocation. Joint spaces are maintained. IMPRESSION: No acute osseous abnormality Director Of Social Media Marketing: PSCB Transcribe Date/Time: Sep 01 2024 12:18P Dictated by : ASIM GANT MD This examination was interpreted and the report reviewed and electronically signed by: ASIM GANT MD on Sep 01 2024 12:20PM EST [id number] Normal [facility] XR Foot - left AP and Latera l and obliqueon 09-01-2024 IMPRESSION: No acute osseous abnormality Director Of Social Media Marketing: PSC Transcribe Date/Time: Sep 01 2024 12:18P Dictated by : ASIM GANT MD This examination was interpreted and the report reviewed and electronically signed by: ASIM GANT MD on Sep 01 2024 12:20PM EST DIVISION OF RADIOLOGY * * *Final Report* * * DATE OF EXAM: Sep 01 2024 12:17PM WOX [id number] - XR FOOT 3V AP/LAT/OBL LT / PROCEDURE REASON: Foot sprain, left, initial encounter * * * * Physician Interpretation * * * * EXAMINATION: XR ANKLE 3V AP/LAT/OBL LT, XR FOOT 3V AP/LAT/OBL LT CLINICAL HISTORY: Left ankle and left foot pain after fall Technique: XR ANKLE 3V AP/LAT/OBL LT, XR FOOT 3V AP/LAT/OBL LT -- LEFT with 3 views on 3 images Comparison: None RESULT: No acute fracture or dislocation. Joint spaces are maintained. DIVISION OF RADIOLOGY Provider, [facility] - 09/01/2024 * * *Final Report* * * DATE OF EXAM: Sep 01 2024 12:17PM WOX 5336 - XR FOOT 3V AP/LAT/OBL LT / PROCEDURE REASON: Foot sprain, left, initial encounter * * * * Physician Interpretation * * * * EXAMINATION: XR ANKLE 3V AP/LAT/OBL LT, XR FOOT 3V AP/LAT/OBL LT CLINICAL HISTORY: Left ankle and left foot pain after fall Technique: XR ANKLE 3V AP/LAT/OBL LT, XR FOOT 3V AP/LAT/OBL LT -- LEFT with 3 views on 3 images Comparison: None RESULT: No acute fracture or dislocation. Joint spaces are maintained. IMPRESSION IMPRESSION: No acute osseous abnormality Director Of Social Media Marketing: PSCB Transcribe Date/Time: Sep 01 2024 12:18P Dictated by : ASIM GANT MD This examination was interpreted and the report reviewed and electronically signed by: ASIM GANT MD on Sep 01 2024 12:20PM EST XR Foot - left AP and Latera l and obliqueOrdered By: Ccf Provider on 09-01-2024 Elbow min 3 Viewson 08-27-19 Elbow min 3 Views [facility] Services [address] [place] [id number] Elbow min 3 Views MR#: [id number] Acct: [id number] Name: MARTHA WARD Rep #: [id number] : 1980 F 44 From: Isabella paz MD PCP: Dr. Cleo Gonzalez MD Status: [facility] ER Study: Elbow min 3 Views Date of Exam: 08/27/24 Exam# [id number] Ordering Dr: Zackery Juárez DO [id number] HISTORY: Injury/Pain. TECHNIQUE: XR Elbow Min 3 Views. COMPARISON: None. FINDINGS: BONES : No acute fracture identified. Mineralization unremarkable. JOINTS: No dislocation. Joint spaces maintained. RAD/Elbow min 3 Views IMPRESSION: No acute fracture or dislocation identified in the right elbow. Electronically Signed: Isabella Flannery MD at 15:11 EST , CC: Dr. Cleo Gonzalez MD; Dr. Zackery Juárez DO Director Of Social Media Marketing: Signed Normal [facility] Emergency Department Summary on 08-27-2024 Emergency Department Summary [facility] Medical Records Department [address] [place] [address] Emergency Department Summary 08/27/24 MR#: [id number] Acct: [id number] Name: MARTHA WARD Rep #: [id number] : 1980 44 From: Zackery Juárez DO PCP: Dr. Cleo Gonzalez MD Status:DEP ER Location: ED HPI History of Present Illness HPI Narrative: Patient presents with a right elbow injury that occurred today. Patient states she slipped and fell. Patient states she landed on her right elbow. Patient is right-hand dominant. Patient states her pain is worse with movement and palpation. Patient describes her pain as throbbing. Patient states nothing seems to help with it. Patient denies any paresthesias or weakness. Patient denies any head injury or loss of consciousness. Patient denies any other injuries. Chief Complaint: Upper Extremity Injury Informant: patient Occured/Mechanism Mechanism/Context: Yes fall Onset/Context/Timing Onset: Today Context: Sudden Onset Timing: Continuous Quality of Pain: Throbbing Location: Right elbow Worsened by: Movement, palpation Relieved by: Nothing Associated Symptoms Associated Symptoms: Negative for Parasthesia, Weakness or Loss of Funtion [facility] Medical History Acute bacterial conjunctivitis IBS (irritable bowel syndrome) Arthritis Home Medications ???Medication ???Instructions ???Recorded ???Last Taken ???Type escitalopram oxalate 5 mg tablet 5 mg PO QDAY #30 tabs 08/18/24 Unknown Rx (Lexapro) Allergy/AdvReac Type Severity Reaction Status Date / Time amoxicillin Allergy Rash Verified 08/27/24 13:19 Sulfa (Sulfonamide Allergy Rash Verified 08/27/24 13:19 Antibiotics) Family History Grandmother Diabetes Grandfather Parkinson disease Mother Skin cancer Bleeding disorder factor 5 Sister Autoimmune disease sjogren's Aunt Autoimmune disease Surgical History History of removal of ovarian cyst H/O tubal ligation History of hysterectomy Social History household members: spouse and children current occupational status: employed current occupation: Works at [employer] Smoking Status: Never smoker Electronic Cigarette Use: not used alcohol intake: current alcohol intake frequency: a few times a week Alcohol type: wine details: 5 oz wine substance use type: does not use what type of physical activity do you participate in: walking frequency: daily do you feel safe at home: Yes ROS ROS ED Constitutional Constitutional ED: Denies chills or fever(s) Eyes Eyes: Denies blurry vision or change in vision ENT ENT ED: Denies rhinorrhea or sore throat Cardiovascular Cardiovascular: Denies chest pain or palpitations Respiratory/Chest Respiratory/Chest: Denies cough or dyspnea Gastrointestinal Gastrointestinal: Denies nausea or vomiting Genitourinary Genitourinary ED: Denies dysuria or hematuria Musculoskeletal Musculoskeletal: Reports back pain; Denies neck pain Integumentary Reports Abrasions; Denies abscess or rash Neurologic Neurologic: Denies headache(s) or weakness Allergic/Immunologic Allergic/Immunologic ED: Denies mouth swelling or urticaria EXAM Physical Exam Const Vital Signs: 08/27/24 13:16 Temperature 97.6 F L Temperature Source Temporal Pulse Rate 62 Respiratory Rate 16 Blood Pressure 137/78 H Blood Pressure Mean 97 Pulse Ox 98 Oxygen Delivery Method Room Air Positive well nourished and well developed Constitutional Narrative: Patient has BMI of 42.9 General Appearance ED: well developed and NAD HEENT Reports moist mucous membranes Neck full ROM and supple Extremity Extremity Narrative: There is tenderness, edema, and ecchymosis over the ulnar aspect of the right elbow and forearm. There is no bony crepitance or step-off noted. Range of motion was limited in all motions of the right elbow secondary to pain. There is a superficial abrasion over the extensor surface of the right proximal forearm. There is no active bleeding noted. Sensation was intact to light touch in the radial, median, and ulnar areas. Strength is 5/5 in the radial, median, and ulnar areas. Radial pulses are equal bilaterally. Neuro oriented x3, CN's II-XII intact bilaterally, moves all extremities, no focal motor deficits and no sensory deficits noted Sensorium / Orientation: alert Motor Exam: strength 5/5 throughout Psych mental status grossly normal Skin Trauma: abrasion MDM MDM MDM Narrative Medical decision making narrative: Differential diagnosis includes fracture, contusion, and sprain. X-rays of the (more content not included)... Normal [facility] Fact V Leiden Mutationon FACTOR V LEIDEN Comment Normal . [facility] Comment on above: Result Comment: Resu lt: c.1601G>A (p.[id number]) - Not Detected This result is not associated with an increased risk for venous thromboembolism. See Additional Clinical Information and Comments. Additional Clinical Information: Venous thromboembolism is a multifactorial disease influenced by genetic, environmental, and circumstantial risk factors. The c.1601G>A (p. [id number]) variant in the F5 gene, commonly referred to as Factor V Leiden, is a genetic risk factor for venous thromboembolism. Heterozygous carriers of this variant have a 6- to 8-fold increased risk for venous thromboembolism. Individuals homozygous for this variant (ie, with a copy of the variant on each chromosome) have an approximately 80-fold increased risk for venous thromboembolism. Individuals who carry both a c.*97G>A variant in the F2 gene and Factor V Leiden have an approximately 20-fold increased risk for venous thromboembolism. Risks are likely to be even higher in more complex genotype combinations involving the F2 c.*97G>A variant and Factor V Leiden (PMID: 48962370). Additional risk factors include but are not limited to: deficiency of protein C, protein S, or antithrombin III, age, male sex, personal or family history of deep vein thromboembolism, smoking, surgery, prolonged immobilization, malignant neoplasm, tamoxifen treatment, raloxifene treatment, oral contraceptive use, hormone replacement therapy, and . Management of thrombotic risk and thrombotic events should follow established guidelines and fit the clinical circumstance. This result cannot predict the occurrence or recurrence of a thrombotic event. Comment: Genetic counseling is recommended to discuss the potential clinical implications of positive results, as well as recommendations for testing family members. Genetic Coordinators are available for health care providers to discuss results at [phone] Test Details: Variant Analyzed: c.1601G>A (p. [id number]), referred to as Factor V Leiden Methods/Limitations: DNA analysis of the F5 gene (NM_000130.5) was performed by PCR amplification followed by restriction enzyme analysis. The diagnostic sensitivity is >99%. Results must be combined with clinical information for the most accurate interpretation. Molecular-based testing is highly accurate, but as in any laboratory test, diagnostic errors may occur. False positive or false negative results may occur for reasons that include genetic variants, blood transfusions, bone marrow transplantation, somatic or tissue-specific mosaicism, mislabeled samples, or erroneous representation of family relationships. This test was developed and its performance characteristics determined by [facility] [employer]. It has not been cleared or approved by the Food and Drug Administration. References: Cecil Houser, Natalie NUGENT, Tommie R, Colby WW, Vance JH; ACMG Professional Practice and Guidelines Committee. Addendum: [employer] consensus statement on factor V Leiden mutation testing. Carla Med. 2020Oct 19. doi: 10.1038/[id number]-r. PMID: 82054249. Anne RAMON. Factor V Leiden Thrombophilia. 1998December 28 (Updated 2017Aug 20). In: Rd MP, Viviane HH, Waqas RA, et al., editors. [employer](R) (Internet). [place] ([place]): [facility], [place]; 9445-6633. Available from: https://www.ncbi.nlm.nih.gov/books/XWL4699/ Mehran S, Natalie NUGENT, Mamadou X, Elio B, Alberto EB, Julieth P, Xander CS; [employer] Laboratory Senior Test Analyst Committee. Venous thromboembolism laboratory testing (factor V Leiden and factor II c.*97G>A), 2018 update: a technical standard of the [employer] and [employer] (ACMG). Carla Med. 2018 Jul;20(12):3971-9617. doi: 10.1038/[id number]-y. Epub 2017May 21. PMID: 85199102. Performed By: #### L 4500.5000 #### [facility] [address] [place], [address] Reviewed By Comment Normal . [facility] Comment on above: Result Comment: Tech nical Component performed at [facility] Professional Component performed by: [place] Tarik Redd, Ph.D., [facility] Director, Molecular Genetics [address] [place], [place] [id number] Performed at: - [facility] [address] [place], [place] [id number] Bra[place] Coupler Dinkey: Haja Nesbitt [facility], Phone: [phone] Performed By: #### L 7045.5000 #### [facility] [address] [place], [address] 63-KN-Ylbefci DOrdered By: Gordon Gonzalez on 08-18-2024 Vitamin D 25-Hydroxy 21.0 ng/mL [facility] Comment on above: Vitamin D 25(OH) Sta tus Range Deficiency <20 ng/mL (50nmol/L) Insufficiency 20 - 30 ng/mL (50 - 75 nmol/L) Sufficiency 30 - 100 ng/mL (75 - 250 nmol/L) Toxicity >100 ng/mL (>250 nmol/L) Absolute neutrophil countOrd ered By: Cleo Gonzalez on 08-18-2024 Neutrophils (Bld) [#/Vol] 2.4 10*3/uL 2.0-7.7 [facility] Albumin to globulin ratioOrd ered By: Cleo Gonzalez on 08-18-2024 Albumin/Globulin [Mass ratio] 1.1 {ratio} 0.9-2.4 [facility] Basophil percentageOrdered B y: Cleo Gonzalez on 08-18-2024 Basophils/100 WBC (Bld) 1.0 % 0-1 [facility] Bilirubin, totalOrdered By: Cleo Gonzalez on 08-18-2024 Bilirubin [Mass/Vol] 0.30 mg/dL 0.20-1.00 [facility] Comment on above: For patients on eltr ombopag therapy, use of Dimension [place] TBIL is not recommended. Blood urea nitrogen (BUN)/cr eatinine ratioOrdered By: Cleo Gonzalez on 08-18-2024 Urea nitrogen/Creatinine [Mass ratio] 11.1 mg/mg 10-20 [facility] CBC W/Diff, Automatedon 01-0 Absolute Lymph 1.82 X10 3/uL Normal 0.83-4.51 [facility] Comment on above: Performed By: #### L 500.4100, L506.1000, L500.4050, L100.0100 #### [facility] [address] [place], [address] Absolute Neut 2.4 X10 3/uL Normal 2.0-7.7 [facility] Comment on above: Performed By: #### L 500.4100, L506.1000, L500.4050, L100.0100 #### [facility] [address] [place], [address] Basophils/100 WBC (Bld) 1.0 % Normal 0-1 [facility] Comment on above: Performed By: #### L 500.4100, L506.1000, L500.4050, L100.0100 #### [facility] [address] [place], [address] Eosinophils/100 WBC (Bld) 3.1 % Normal 0-5 [facility] Comment on above: Performed By: #### L 500.4100, L506.1000, L500.4050, L100.0100 #### [facility] [address] [place], [address] Erythrocyte distribution width (RBC) [Ratio] 12.6 % Normal 11.6-14.6 [facility] Comment on above: Performed By: #### L 500.4100, L506.1000, L500.4050, L100.0100 #### [facility] [address] [place], [address] Hematocrit (Bld) [Volume fraction] 44.8 % Normal 37-47 [facility] Comment on above: Performed By: #### L 500.4100, L506.1000, L500.4050, L100.0100 #### [facility] [address] [place], [address] Hemoglobin (Bld) [Mass/Vol] 14.4 g/dL Normal 12.0-15.0 [facility] Comment on above: Performed By: #### L 500.4100, L506.1000, L500.4050, L100.0100 #### [facility] [address] [place], [address] IG% 0.600 Normal 0.0-0.9 [facility] Comment on above: Result Comment: IG% - Immature Granulocytes (promyelocytes, myelocytes and metamyelocytes) > 1% indicates that a LEFT SHIFT is Present. Performed By: #### L 500.4100, L506.1000, L500.4050, L100.0100 #### [facility] [address] [place], [address] Lymphocytes/100 WBC (Bld) 38.0 % Normal 19-41 [facility] Comment on above: Performed By: #### L 500.4100, L506.1000, L500.4050, L100.0100 #### [facility] [address] [place], [address] MCH (RBC) [Entitic mass] 30.3 pg Normal 27.0-32.0 [facility] Comment on above: Performed By: #### L 500.4100, L506.1000, L500.4050, L100.0100 #### [facility] [address] [place], [address] MCHC (RBC) [Mass/Vol] 32.1 g/dL Normal 32-36 [facility] Comment on above: Performed By: #### L 500.4100, L506.1000, L500.4050, L100.0100 #### [facility] [address] [place], [address] MCV (RBC) [Entitic vol] 94.3 fL Normal 81-99 [facility] Comment on above: Performed By: #### L 500.4100, L506.1000, L500.4050, L100.0100 #### [facility] [address] [place], [address] Monocytes/100 WBC (Bld) 7.1 % Normal 0-10 [facility] Comment on above: Performed By: #### L 500.4100, L506.1000, L500.4050, L100.0100 #### [facility] [address] [place], [address] Neutrophils/100 WBC (Bld) 50.2 % Normal 47-70 [facility] Comment on above: Performed By: #### L 500.4100, L506.1000, L500.4050, L100.0100 #### [facility] [address] [place], [address] Nucleated RBC (Bld) [#/Vol] 0 10*3/uL Normal 0-5 [facility] Comment on above: Performed By: #### L 500.4100, L506.1000, L500.4050, L100.0100 #### [facility] [address] [place], [address] Platelet mean volume (Bld) [Entitic vol] 9.8 fL Normal 6.2-12.0 [facility] Comment on above: Performed By: #### L 500.4100, L506.1000, L500.4050, L100.0100 #### [facility] [address] [place], [address] Platelets (Bld) [#/Vol] 304 10*3/uL Normal 150-450 [facility] Comment on above: Performed By: #### L 500.4100, L506.1000, L500.4050, L100.0100 #### [facility] [address] [place], [address] RBC (Bld) [#/Vol] 4.75 10*6/uL Normal 4.2-5.4 [facility] Comment on above: Performed By: #### L 500.4100, L506.1000, L500.4050, L100.0100 #### [facility] [address] [place], [address] RDW SD 43.9 fl Normal 35.1-43.9 [facility] Comment on above: Performed By: #### L 500.4100, L506.1000, L500.4050, L100.0100 #### [facility] [address] [place], [address] WBC (Bld) [#/Vol] 4.8 10*3/uL Normal 4.4-11.0 [facility] Comment on above: Performed By: #### L 500.4100, L506.1000, L500.4050, L100.0100 #### [facility] [address] [place], [address] Carbon dioxide measurementOr dered By: Cleo Gonzalez on 08-18-2024 CO2 [Moles/Vol] 29.0 mmol/L 21.0-32.0 [facility] Chloride measurementOrdered By: Cleo Gonzalez on 08-18-2024 Chloride [Moles/Vol] 106 mmol/L 98-107 [facility] Clotting factor V Leiden mut ation detectionOrdered By: Cleo Gonzalez on 08-18-2024 Factor V Leiden Mutation Comment . [facility] Comment on above: Result: c.1601G>A (p .[id number]) - Not DetectedThis result is not associated with an increased risk for venousthromboembolism. See Additional Clinical Information andComments.Additional Clinical Information:Venous thromboembolism is a multifactorial diseaseinfluenced by genetic, environmental, and circumstantialrisk factors. The c.1601G>A (p. [id number]) variant in theF5 gene, commonly referred to as Factor V Leiden, is agenetic risk factor for venous thromboembolism.Heterozygous carriers of this variant have a 6- to 8-foldincreased risk for venous thromboembolism. Individualshomozygous for this variant (ie, with a copy of the varianton each chromosome) have an approximately 80-fold increasedrisk for venous thromboembolism. Individuals who carry mikhail c.*97G>A variant in the F2 gene and Factor V Leiden havean approximately 20-fold increased risk for venousthromboembolism. Risks are likely to be even higher in morecomplex genotype combinations involving the F2 c.*97G>Avariant and Factor V Leiden (PMID: [id number]). Additionalrisk factors include but are not limited to: deficiency ofprotein C, protein S, or antithrombin III, age, male sex,personal or family history of deep vein thromboembolism,smoking, surgery, prolonged immobilization, malignantneoplasm, tamoxifen treatment, raloxifene treatment, oralcontraceptive use, hormone replacement therapy, andpregnancy. Management of thrombotic risk and thromboticevents should follow established guidelines and fit theclinical circumstance. This result cannot predict theoccurrence or recurrence of a thrombotic event.Comment:Genetic counseling is recommended to discuss thepotential clinical implications of positive results, aswell as recommendations for testing family members.Genetic Coordinators are available for health careproviders to discuss results at [phone] Details:Variant Analyzed: c.1601G>A (p. [id number]), referred toas Factor V LeidenMethods/Limitations:DNA analysis of the F5 gene (NM_000130.5) was performedby PCR amplification followed by restriction enzymeanalysis. The diagnostic sensitivity is >99%. Results mustbe combined with clinical information for the most accurateinterpretation. Molecular-based testing is highly accurate,but as in any laboratory test, diagnostic errors may occur.False positive or false negative results may occur forreasons that include genetic variants, blood transfusions,bone marrow transplantation, somatic or tissue-specificmosaicism, mislabeled samples, or erroneous representationof family relationships.This test was developed and its performance characteristicsdetermined by [employer]. It has not been cleared orapproved by the Food and Drug Administration.References:Cecil Houser, Natalie NUGENT, Tommie R, Colby WW, Vance JH; ACMGProfessional Practice and Guidelines Committee. Addendum:[employer] consensus statement onfactor V Leiden mutation testing. Carla Med. 2020Oct 19.doi: 10.1038/[id number]-e. PMID: 95153994.Anne RAMON. Factor V Leiden Thrombophilia. 1998December 28(Updated 2017Aug 20). In: Rd MP, Viviane HH, Waqas RA,et al., editors. [employer]R) (Internet). [place] ([place]):[facility]; 5074-2136. Availablefrom: https://www.ncbi.nlm.nih.gov/books/DMU3133/Mehran Houser, Natalie NUGENT, Mamadou X, Elio B, Alberto EB, Julieth P,Xander CS; [employer] Laboratory Senior Test Analyst Committee.Venous thromboembolism laboratory testing (factor V Leidenand factor II c.*97G>A), 2018 update: a technical standardof the [employer] [employer] and [employer]omics(ACMG). Carla Med. 2017;20(12):6414-2262. doi:10.1038/[id number]-l. Epub 2017May 21. PMID: 02239637. Comprehensive Metabolic Prof [facility] 08-18-2024 Albumin [Mass/Vol] 3.7 g/dL Normal 3.2-5.0 [facility] Comment on above: Performed By: #### L 500.4100, L506.1000, L500.4050, L100.0100 #### [facility] [address] [place], [address] Albumin/Globulin [Mass ratio] 1.1 {ratio} Normal 0.9-2.4 [facility] Comment on above: Performed By: #### L 500.4100, L506.1000, L500.4050, L100.0100 #### [facility] [address] [place], [address] ALK P 90 U/L Normal 45-117 [facility] Comment on above: Performed By: #### L 500.4100, L506.1000, L500.4050, L100.0100 #### [facility] [address] [place], [address] ALT [Catalytic activity/Vol] 85 U/L High 13-56 [facility] Comment on above: Performed By: #### L 500.4100, L506.1000, L500.4050, L100.0100 #### [facility] [address] [place], [address] AST [Catalytic activity/Vol] 56 U/L High 15-37 [facility] Comment on above: Performed By: #### L 500.4100, L506.1000, L500.4050, L100.0100 #### [facility] [address] [place], [address] Bilirubin [Mass/Vol] 0.30 mg/dL Normal 0.20-1.00 [facility] Comment on above: Result Comment: For patients on eltrombopag therapy, use of Dimension [place] TBIL is not recommended. Performed By: #### L 500.4100, L506.1000, L500.4050, L100.0100 #### [facility] [address] [place], [address] BUN/CRE 11.1 RATIO Normal 10-20 [facility] Comment on above: Performed By: #### L 500.4100, L506.1000, L500.4050, L100.0100 #### [facility] [address] [place], [address] CA,Total 9.1 mg/dL Normal 8.5-10.1 [facility] Comment on above: Performed By: #### L 500.4100, L506.1000, L500.4050, L100.0100 #### [facility] [address] [place], [address] Chloride [Moles/Vol] 106 mmol/L Normal 98-107 [facility] Comment on above: Performed By: #### L 500.4100, L506.1000, L500.4050, L100.0100 #### [facility] [address] [place], [address] CO2 [Moles/Vol] 29.0 mmol/L Normal 21.0-32.0 [facility] Comment on above: Performed By: #### L 500.4100, L506.1000, L500.4050, L100.0100 #### [facility] [address] [place], [address] Creatinine [Mass/Vol] 0.81 mg/dL Normal 0.55-1.02 [facility] Comment on above: Result Comment: The validity of the calculated GFR GFRAA in patients over 70 years has not been determined. Clinical correlation is essential. Performed By: #### L 500.4100, L506.1000, L500.4050, L100.0100 #### [facility] [address] [place], [address] EST GFR - AA 98 mL/min Normal >60 [facility] Comment on above: Result Comment: Afri can [employer] GFR Calc Performed By: #### L 500.4100, L506.1000, L500.4050, L100.0100 #### [facility] [address] [place], [address] GAP 3 Low 5-15 [facility] Comment on above: Performed By: #### L 500.4100, L506.1000, L500.4050, L100.0100 #### [facility] [address] [place], [address] GFR/1.73 sq M.predicted among non-blacks MDRD (S/P/Bld) [Vol rate/Area] 81 mL/min/{1.73_m2} Normal >60 [facility] Comment on above: Result Comment: Non- GFR Calc Performed By: #### L 500.4100, L506.1000, L500.4050, L100.0100 #### [facility] [address] [place], [address] Globulin (S) [Mass/Vol] 3.4 g/dL Normal 2.2-4.2 [facility] Comment on above: Performed By: #### L 500.4100, L506.1000, L500.4050, L100.0100 #### [facility] [address] [place], [address] Glucose [Mass/Vol] 100 mg/dL Normal 74-106 [facility] Comment on above: Result Comment: Fast ing Glucose result from 100 to 125 mg/dL suggests IMPAIRED HOMEOSTASIS per A.D.A. criteria. Performed By: #### L 500.4100, L506.1000, L500.4050, L100.0100 #### [facility] [address] [place], [address] Potassium [Moles/Vol] 3.9 mmol/L Normal 3.5-5.1 [facility] Comment on above: Performed By: #### L 500.4100, L506.1000, L500.4050, L100.0100 #### [facility] [address] [place], [address] Sodium [Moles/Vol] 138 mmol/L Normal 136-145 [facility] Comment on above: Performed By: #### L 500.4100, L506.1000, L500.4050, L100.0100 #### [facility] [address] [place], [address] T PROT 7.1 g/dL Normal 6.4-8.2 [facility] Comment on above: Performed By: #### L 500.4100, L506.1000, L500.4050, L100.0100 #### [facility] [address] [place], [address] Urea nitrogen [Mass/Vol] 9 mg/dL Normal 7-18 [facility] Comment on above: Performed By: #### L 500.4100, L506.1000, L500.4050, L100.0100 #### [facility] Laboratory [address] [place], [address] Eosinophil percentageOrdered By: Cleo Gonzalez on 08-18-2024 Eosinophils/100 WBC (Bld) 3.1 % 0-5 [facility] Erythrocyte distribution wid th ratioOrdered By: Cleo Gonzalez on 08-18-2024 Erythrocyte distribution width (RBC) [Ratio] 12.6 % 11.6-14.6 [facility] Erythrocyte distribution wid th standard deviationOrdered By: Cleo Gonzalez on 08-18-2024 Erythrocyte distribution width (RBC) [Entitic vol] 43.9 fL 35.1-43.9 [facility] Estimated glomerular filtrat ion rate (GFR) AmericanOrdered By: Cleo Gonzalez on 08-18-2024 Estimated GFR (MDRD) Amer 98 mL/min >60 [facility] Comment on above: GFR Calc Glomerular filtration rate ( GFR) estimationOrdered By: Cleo Gonzalez on 08-18-2024 Estimated GFR (MDRD) Non-Af Amer 81 mL/min >60 [facility] Comment on above: Non- GFR Calc Glucose measurementOrdered B y: Cleo Gonzalez on 08-18-2024 Glucose [Mass/Vol] 100 mg/dL 74-106 [facility] Comment on above: Fasting Glucose resu lt from 100 to 125 mg/dL suggests IMPAIRED HOMEOSTASIS per A.D.A. criteria. Hematocrit Auto (Bld) [Volum e fraction]Ordered By: Cleo Gonzalez on 08-18-2024 Hematocrit (Bld) [Volume fraction] 44.8 % 37-47 [facility] Hemoglobin measurementOrdere d By: Cleo Gonzalez on 08-18-2024 Hemoglobin (Bld) [Mass/Vol] 14.4 g/dL 12.0-15.0 [facility] High density lipoprotein (HD L) measurementOrdered By: Cleo Gonzalez on 08-18-2024 Cholesterol in HDL [Mass/Vol] 63 mg/dL >40 [facility] Comment on above: The drugs N-Acetylcy steine and Metamizole may falsely depress this assay. Reference Range HDL <40 mg/dL Low HDL Cholesterol HDL >or= 60 mg/dL High HDL Cholesterol Immature granulocytes/100 WB C Auto (Bld)Ordered By: Cleo Gonzalez on 08-18-2024 Immature granulocytes/100 WBC (Bld) 0.600 % 0.0-0.9 [facility] Comment on above: IG% - Immature Granu locytes (promyelocytes, myelocytes and metamyelocytes) > 1% indicates that a LEFT SHIFT is Present. Laboratory - Chemistry and C hemistry - challengeOrdered By: Cleo Gonzalez on 08-18-2024 AST [Catalytic activity/Vol] 56 U/L High 15-37 [facility] Lipid Profileon 08-18-2024 Cholesterol [Mass/Vol] 200 mg/dL Normal 200 [facility] Comment on above: Result Comment: <200 mg/dL Desirable 200-240 mg/dL Borderline >240 mg/dL High Risk Performed By: #### L 500.4100, L506.1000, L500.4050, L100.0100 #### [facility] Laboratory [address] [place], [address] Cholesterol in HDL [Mass/Vol] 63 mg/dL Normal [facility] Comment on above: Result Comment: The drugs N-Acetylcysteine and Metamizole may falsely depress this assay. Reference Range HDL <40 mg/dL Low HDL Cholesterol HDL >or= 60 mg/dL High HDL Cholesterol Performed By: #### L 500.4100, L506.1000, L500.4050, L100.0100 #### [facility] [address] [place], [address] Cholesterol in LDL [Mass/Vol] 112 mg/dL Normal 0-130 [facility] Comment on above: Performed By: #### L 500.4100, L506.1000, L500.4050, L100.0100 #### [facility] [address] [place], [address] Cholesterol in VLDL [Mass/Vol] 25 mg/dL Normal 5-40 [facility] Comment on above: Performed By: #### L 500.4100, L506.1000, L500.4050, L100.0100 #### [facility] [address] [place], [address] Triglyceride [Mass/Vol] 124 mg/dL Normal [facility] Comment on above: Result Comment: The drugs N-Acetylcysteine and Metamizole may falsely depress this assay. Serum Triglycerides Reference Interval Normal <150 mg/dL Borderline high 150 - 199 mg/dL High 200 - 499 mg/dL Very High > or = 500 mg/dL Performed By: #### L 500.4100, L506.1000, L500.4050, L100.0100 #### [facility] [address] [place], [address] Low density lipoprotein (LDL ) cholesterol measurementOrdered By: Cleo Gonzalez on 08-18-2024 Cholesterol in LDL [Mass/Vol] 112 mg/dL 0-130 [facility] Lymphocytes Auto (Unsp spec) [#/Vol]Ordered By: Cleo Gonzalez on 08-18-2024 Lymphocytes (Bld) [#/Vol] 1.82 10*3/uL 0.83-4.51 [facility] Lymphocytes/100 WBC Auto (Un sp spec)Ordered By: Cleo Gonzalez on 08-18-2024 Lymphocytes/100 WBC (Bld) 38.0 % 19-41 [facility] MCV (mean corpuscular volume ) determinationOrdered By: Cleo Gonzalez on 08-18-2024 MCV (RBC) [Entitic vol] 94.3 fL 81-99 [facility] Mean corpuscular hemoglobin (MCH) determinationOrdered By: Cleo Gonzalez on 08-18-2024 MCH (RBC) [Entitic mass] 30.3 pg 27.0-32.0 [facility] Mean corpuscular hemoglobin concentration (MCHC) determinationOrdered By: Cleo Gonzalez on 08-18-2024 MCHC (RBC) [Mass/Vol] 32.1 g/dL 32-36 [facility] Mean platelet volume determi nationOrdered By: Cleo Gonzalez on 08-18-2024 Platelet mean volume (Bld) [Entitic vol] 9.8 fL 6.2-12.0 [facility] Monocyte percentageOrdered B y: Cleo Gonzalez on 08-18-2024 Monocytes/100 WBC (Bld) 7.1 % 0-10 [facility] Neutrophil percentageOrdered By: Cleo Gonzalez on 08-18-2024 Neutrophils/100 WBC (Bld) 50.2 % 47-70 [facility] Nucleated red blood cell per centageOrdered By: Cleo Gonzalez on 08-18-2024 Nucleated RBC/100 WBC (Bld) [Ratio] 0 % 0-5 [facility] Platelet countOrdered By: Sunil Gonzalez on 08-18-2024 Platelets (Bld) [#/Vol] 304 10*3/uL 150-450 [facility] Potassium measurementOrdered By: Cleo Gonzalez on 08-18-2024 Potassium [Moles/Vol] 3.9 mmol/L 3.5-5.1 [facility] RBC Auto (Bld) [#/Vol]Ordere d By: Cleo Gonzalez on 08-18-2024 RBC (Bld) [#/Vol] 4.75 10*6/uL 4.2-5.4 [facility] Serum anion gap measurementO rdered By: Cleo Gonzalez on 08-18-2024 Anion gap [Moles/Vol] 3 mmol/L Low 5-15 [facility] Serum globulin measurementOr dered By: Cleo Gonzalez on 08-18-2024 Globulin (S) [Mass/Vol] 3.4 g/dL 2.2-4.2 [facility] Serum or plasma alanine davila otransferase (ALT) measurementOrdered By: Cleo Gonzalez on 08-18-2024 ALT [Catalytic activity/Vol] 85 U/L High 13-56 [facility] Serum or plasma albumin danielle urement (mass/volume)Ordered By: Cleo Gonzalez on 08-18-2024 Albumin [Mass/Vol] 3.7 g/dL 3.2-5.0 [facility] Serum or plasma alkaline dm sphatase measurementOrdered By: Cleo Gonzalez on 08-18-2024 ALP [Catalytic activity/Vol] 90 U/L 45-117 [facility] Serum or plasma calcium danielle urement (mass/volume)Ordered By: Cleo Gonzalez on 08-18-2024 Calcium [Mass/Vol] 9.1 mg/dL 8.5-10.1 [facility] Serum or plasma cholesterol measurement (mass/volume)Ordered By: Cleo Gonzalez on 08-18-2024 Cholesterol [Mass/Vol] 200 mg/dL <200 [facility] Comment on above: <200 mg/dL Desirable 200-240 mg/dL Borderline >240 mg/dL High Risk Serum or plasma creatinine m easurement (mass/volume)Ordered By: Cleo Gonzalez on 08-18-2024 Creatinine [Mass/Vol] 0.81 mg/dL 0.55-1.02 [facility] Comment on above: The validity of the calculated GFR & GFRAA in patients over 70 years has not been determined. Clinical correlation is essential. Serum or plasma urea nitroge n measurement (mass/volume)Ordered By: Cleo Gonzalez on 08-18-2024 Urea nitrogen [Mass/Vol] 9 mg/dL 7-18 [facility] Sodium levelOrdered By: Gokul Gonzalez on 08-18-2024 Sodium [Moles/Vol] 138 mmol/L 136-145 [facility] Total proteinOrdered By: Raul Gonzalez on 08-18-2024 Protein [Mass/Vol] 7.1 g/dL 6.4-8.2 [facility] Triglycerides measurementOrd ered By: Cleo Gonzalez on 08-18-2024 Triglyceride [Mass/Vol] 124 mg/dL <199 [facility] Comment on above: The drugs N-Acetylcy steine and Metamizole may falsely depress this assay.Serum Triglycerides Reference Interval Normal <150 mg/dL Borderline high 150 - 199 mg/dL High 200 - 499 mg/dL Very High > or = 500 mg/dL Very low density lipoprotein (VLDL) cholesterol measurementOrdered By: Cleo Gonzalez on 08-18-2024 VLDL Cholesterol 25 mg/dL 5-40 [facility] Vitamin D,25 Hydroxyon 08-18 Vitamin D 25-OH 21.0 ng/mL Normal [facility] Comment on above: Result Comment: Maria Elena min D 25(OH) Status Range Deficiency <20 ng/mL (50nmol/L) Insufficiency 20 - 30 ng/mL (50 - 75 nmol/L) Sufficiency 30 - 100 ng/mL (75 - 250 nmol/L) Toxicity >100 ng/mL (>250 nmol/L) Performed By: #### L 500.4100, L506.1000, L500.4050, L100.0100 #### [facility] [address] [place], [address] White blood cell (WBC) count Ordered By: Cleo Gonzalez on 08-18-2024 WBC (Bld) [#/Vol] 4.8 10*3/uL 4.4-11.0 [facility] Internal Medicine Office Vis joie 08-04-2024 Internal Medicine Office Visit [facility] [place] [address] [place] [address] OFFICE VISIT Date of Service: 08/18/24 MR#: [id number] Acct: [id number] Name: MRATHA WARD Rep #: [id number] : 1980 Provider: Dr. Cleo francisco MD Age/Sex: 44/F Location: [facility] Status: Signed with Addenda ADDENDUM by Dr. Cleo Gonzalez MD on 08/18/24 at 1332 Addendum Orthostats: Supine 122/63, 63 Sitting 118/62, 62 Standing 122/70, 74 08/18/24 1332 Date Cleo Gonzalez MD cc: * Signed Intake Vital Signs 12/22/23 12:00 08/18/24 09:53 Height 5 ft 5 in 5 ft 5 in Weight: 259 lb BMI 43.1 BP 122/66 H Blood Pressure Location Lt brachial Position Sitting Respiration 16 Pulse 75 Pulse Source Monitor Temp 97.7 F L Temp Source Temporal Pulse Oximetry (%) 97 Oxygen Delivery Method room air Intake Visit Reasons: FOLLOW UP Chief Complaint: f/u Injection Molder Required: No Accompanied by: Self Is patient in pain?: No Allergies amoxicillin Allergy (Verified 08/18/24 09:46) Rash Sulfa (Sulfonamide Antibiotics) Allergy (Verified 08/18/24 09:46) Rash Medications ???Medication ???Instructions ???Recorded ???Confirmed ???Type escitalopram oxalate 5 mg tablet 5 mg PO QDAY #30 tabs 08/18/24 08/18/24 Rx (Lexapro) PFSH Medical History Acute bacterial conjunctivitis IBS (irritable bowel syndrome) Arthritis Surgical History History of removal of ovarian cyst H/O tubal ligation History of hysterectomy Family History (Updated 08/18/24 @ 09:53 by Vanessa Locke MA) Grandmother Diabetes Grandfather Parkinson disease Mother Skin cancer Bleeding disorder factor 5 Sister Autoimmune disease sjogren's Aunt Autoimmune disease Social History household members: spouse and children current occupational status: employed current occupation: Works at [employer] Smoking Status: Never smoker Electronic Cigarette Use: not used alcohol intake: current alcohol intake frequency: a few times a week Alcohol type: wine details: 5 oz wine substance use type: does not use what type of physical activity do you participate in: walking frequency: daily do you feel safe at home: Yes HPI HPI Chief Complaint: f/u Details: MARTHA WARD, is a 44 F who presents to the office today for a follow up. She is up to date on her routine blood work and screening.??? She already had her flu shot at school.??? She doesn't smoke and doesn't take any prescription medications.??? She reports she is trying to eat healthy and is trying to stay active, reporting she will still walk around a mile per day. The patient reports that her anxiety has been a bit higher due to her concerns of her other medical conditions. She reports she just seems to tense up. She no longer sees the counselor stating she had too much going on. She reports her TMJ symptoms have been flaring up, which she attributes to tensing up from her anxiety. She did get a mouth guard. She reports she is trying to wear it during the day to get used to it at night. She reports she doesn't seem to clench as much when she wears it. She also follows with a chiropractor, but hasn't been seen since June. She takes ibuprofen as needed which does occasionally help. She also uses a heating pad over her neck which loosens up her tension. At the patient's last office visit, she had concerns about menopausal symptoms including hot and cold flashes, feeling restless at night, fatigue, irritability and trouble sleeping. Labs were done which were in normal range and she was encouraged to see her OBGYN. She did not schedule with them stating she forgot. She reports her symptoms are about the same as they had been. She doesn't take or do anything specific for her symptoms. She also has concerns about dizziness. She reports back in July, it started when she woke up in the morning, and felt that the whole room was spinning, like she was on a scrambler. She states she hasn't had anything like that since, but has been having 1-2 episodes of lightheadedness since then, which she hadn't been having prior to that. She describes it as a 'seeing stars' sensation. She will occasionally get a headache with that. She reports she usually stay still until the sensation has subsided and will try to increase her fluid intake. She reports she is drinking at least 32 ounces of water per day, occasionally more. She hasn't checked her blood pressure at all when her symptoms come on. She states when her symptoms come on, she does also notice some of her hot flashes as above. She hasn't had any syncope (more content not included)... Normal [facility]INTM[facility] MARTHA WARD ([id number]) 1980 F Date Time Provider Department 07/27/24 AISHA CARLSON INTMWS During your visit today, we recorded the following information about you: Monica Allen LPN 07/27/2024 3:44 PM Signed Patient calling for results of urine results. Please advise. Aisha Carlson, KHURRAM 07/27/2024 3:56 PM Signed Urine culture showed no infection. Follow up with pcp for continued symptoms. Srikanth Reed MA 07/27/2024 7:39 PM Signed Pt was notified of the results. Pt verbalized understanding. Srikanth Reed MA Allergies As of Date: 07/27/2024 Noted Allergy Reaction AMOXICILLIN 11/14/2014 4 - Hives SULFACETAMIDE 05/10/2012 14 - Other: See Comments Comments: Eye gtts Date Reviewed: 07/26/2024 Reviewed by: Neetu Martini LPN - Fully Assessed Reason for Visit: Results [95] Prescriptions as of 07/27/2024 - EYALURONIC ACID 10 mg/mL(mw 2.4 -3.6 million) injection INJECT 1 DOSE ONCE A WEEK FOR THE LEFT KNEE FOR 3 WEEKS - meloxicam (MOBIC) 15 mg tablet Take 1 tablet by mouth every afternoon. - predniSONE (DELTASONE) 10 mg tablet Take 4 tabs daily for 3 days, then 2 tabs daily for 3 days, then 1 tab daily for 3 days with food. Problem List As Of Date 07/27/2024 Noted Resolved UTI (lower urinary tract infection) [N39.0] 10/20/2012 10/22/2012 History of UTI [Z87.440] 10/26/2012 11/09/2012 Obesity, Class III, BMI 40-49.9 (morbid obesity*10/26/2012 Patient requested diagnostic testing [Z01.89] 10/26/2012 08/05/2013 Supervision of other normal [Z34.80] 12/08/2012 08/05/2013 Sebaceous cyst of breast [N60.89] 03/23/2013 Right knee pain [M25.561] 06/21/2019 Encounter Status:Closed by SRIKANTH REED on 07/27/24 Normal [facility] Bacteria Ur Culton 4 Bacteria identified Cx Nom (U) ORGANISM ID: 1 10,000 -<50,000 CFU/ml Normal urogenital claudia Normal [facility] Comment on above: Performed By: #### 6 30-4 ####[facility] [id number] [address] CNOVon 07-26-2024 CNOV Office Visit (WSTR ) MARTHA WARD ([id number]) 1980 F Date Time Provider Department 07/26/24 9:15 AM AISHA CARLSON WSTR During your visit today, we recorded the following information about you: Temperature Pulse Respiration Blood pressure 98.1 degrees 62/minute 18/minute 112/76 Weight 117.8 kg Aisha Carlson PA-C 07/26/2024 10:47 AM Signed This note was created using Locallyriter. Subjective Martha Ward is a 44 year old female. HPI Presents with a chief complaint of urinary frequency and dysuria over 3 days. Denies back pain or abdominal pain. No fever. No vaginal complaints. Denies chance of . Patient also complaining of dizziness since this morning. She also has a headache. Does not typically get headaches. No blurred or double vision. No weakness numbness or tingling. No fever. She would like her ears looked at to make sure there is no infection. She is not having ear pain. No history of vertigo. Review of Systems Constitutional: Negative. HENT: Negative. Cardiovascular: Negative. Gastrointestinal: Negative. Genitourinary: Positive for dysuria, frequency and urgency. Negative for vaginal bleeding, vaginal discharge and vaginal pain. Neurological: Positive for dizziness, light-headedness and headaches. Negative for tremors, seizures, syncope, facial asymmetry, speech difficulty and numbness. Hematological: Negative. Psychiatric/Behavioral: Negative. All other systems reviewed and are negative. PAST MEDICAL HISTORY Diagnosis Date Sebaceous cyst of breast 03/23/2013 Current Outpatient Medications Medication Sig Dispense Refill meloxicam (MOBIC) 15 mg tablet Take 1 tablet by mouth every afternoon. EYALURONIC ACID 10 mg/mL(mw 2.4 -3.6 million) injection INJECT 1 DOSE ONCE A WEEK FOR THE LEFT KNEE FOR 3 WEEKS (Patient not taking: Reported on 05/15/2024) predniSONE (DELTASONE) 10 mg tablet Take 4 tabs daily for 3 days, then 2 tabs daily for 3 days, then 1 tab daily for 3 days with food. (Patient not taking: Reported on 05/15/2024) 21 tablet 0 No current facility-administered medications for this visit. PAST SURGICAL HISTORY Procedure Laterality Date ESSURE 09/06/2013 in office [facility] HYSTERECTOMY HX PAST SURGICAL HISTORY OF 2006 Dx. Lap ovarian cyst FAMILY HISTORY Problem Relation Age of Onset Hypertension Mother Heart Sister Hypertension Maternal Grandmother Cancer Maternal Grandfather liver Hypertension Paternal Grandmother Heart Paternal Grandmother Diabetes Paternal Grandmother Social History Tobacco Use Smoking status: Never Smokeless tobacco: Never Vaping Use Vaping status: Never Used Substance Use Topics Alcohol use: No Drug use: No Objective BP 112/76 Pulse 62 Temp 36.7 ?C (98.1 ?F) (Tympanic) Resp 18 Wt 117.8 kg (259 lb 11.2 oz) LMP 09/13/2014 SpO2 97% BMI 43.22 kg/m? Physical Exam Vitals reviewed. Constitutional: Appearance: Normal appearance. HENT: Head: Normocephalic and atraumatic. Cardiovascular: Rate and Rhythm: Normal rate and regular rhythm. Heart sounds: Normal heart sounds. Pulmonary: Effort: Pulmonary effort is normal. Breath sounds: Normal breath sounds. Abdominal: General: Abdomen is flat. Palpations: Abdomen is soft. Tenderness: There is no right CVA tenderness or left CVA tenderness. Skin: General: Skin is warm and dry. Neurological: General: No focal deficit present. Mental Status: She is alert and oriented to person, place, and time. Assessment and Plan ASSESSMENT/PLAN: 1. Urinary frequency - ICD9: 788.41, ICD10: R35.0 (primary diagnosis) Urine dip was completely clear. Discussed with patient limitation of express care to evaluate dizziness, recommended emergency department evaluation for this. Recommended [facility] ED, patient not dizzy currently. Patient voiced understanding of plan. - UA DIP, URINE (POC) - URINE CULTURE 2. Dizziness - ICD9: 780.4, ICD10: R42 Aisha Carlson PA-C Allergies As of Date: 07/26/2024 Noted Allergy Reaction AMOXICILLIN 11/14/2014 4 - Hives SULFACETAMIDE 05/10/2012 14 - Other: See Comments Comments: Eye gtts Date Reviewed: 07/26/2024 Reviewed by: Neetu Martini LPN - Fully Assessed Reason for Visit: Urinary Frequency [1086] Cmt: Frequency and burning x 2-3 days and possible ear infection Primary Visit Diagnosis:Urinary frequency [R35.0] Other Visit Diagnosis:Dizziness [R42] Order(s):UA DIP, URINE (POC) [8362286] Order #: [id number]. #:[id number] -LAB URINE CULTURE [SQURCUL] Order #: [id number]. #:[id number] Prescriptions as of 07/26/2024 - EYALURONIC ACID 10 mg/mL(mw 2.4 -3.6 million) injection INJECT 1 DOSE ONCE A WEEK FOR THE LEFT KNEE FOR 3 WEEKS - meloxicam (MOBIC) 15 mg tablet Take 1 tablet by mouth every afternoon. - predniSONE (DELTASONE) 10 mg tablet Take 4 tabs daily for 3 (more content not included)... Normal [facility] UA DIP, URINE (POC)on 2023 BILIRUBIN UA (POCT) Negative Negative [facility] CLARITY UA (POCT) [facility] COLOR UA (POCT) Yellow GLUCOSE UA (POCT) Negative Negative mg/dL Hemoglobin Ql (U) Negative Negative [facility] KETONE UA (POCT) Negative Negative mg/dL LEUKOCYTES UA (POCT) Negative [facility] NITRITE UA (POCT) Negative Negative [facility] PH UA (POCT) 7.0 4.5 - 8.0 Protein Ql (U) Negative Negative mg/dL SPECIFIC GRAVITY UA (POCT) 1.010 1.005 - 1.030 UROBILINOGEN UA (POCT) 0.2 Angelina l E.U./dL Location:[address], [place], [place], [id number] [place] [address] POINT OF CARE CNOVon 05-15-2024 CNOV Office Visit (UCWSTR ) SHAIMARTHA Leyva ([id number]) 1980 F Date Time Provider Department 05/15/24 8:30 AM KRYSTIN GOODWIN [facility] During your visit today, we recorded the following information about you: Temperature Pulse Respiration Blood pressure 98.5 degrees 85/minute 20/minute 110/78 Weight 115.8 kg Krystin Goodwin APRN.CNP 05/15/2024 8:38 AM Signed CC: Patient presents with: Cough: BRUNO, sore throat, stuffy nose, sneezing, fatigue x 5 days HPI: Martha Ward is a 43 year old female who presents to the office with complaint of chest congestion, head congestion, cough, productive, and wheezing for 5 days. Symptoms are worsening Associated symptoms includes sneezing, nasal congestion, and dyspnea. Denies nausea, vomiting , and diarrhea. Treatments tried include nothing so far. with no relief of symptoms. Sick contacts: unknown. History of asthma, frequent episodes of bronchitis, chronic bronchitis, bronchiectasis or COPD: No Smoker: No Seasonal/environmental allergies: No The ROS is otherwise negative. The patient's pmh, medications, allergies, and past visits are reviewed. PHYSICAL EXAM: BP 110/78 Pulse 85 Temp 36.9 ?C (98.5 ?F) Resp 20 Wt 115.8 kg (255 lb 4.7 oz) LMP 09/13/2014 SpO2 97% BMI 42.48 kg/m? General appearance: alert, cooperative, pleasant, in no acute distress Head: Normocephalic Eyes: EOM's intact, conjunctiva pink and moist, no icterus, sclera white, non-injected Ears: Right ear: External ear/canal- Normal, TM - clear with good landmarks. Left ear: External ear/canal- Normal, TM - clear with good landmarks Oropharynx:moist without lesions, No erythema, exudates or tonsillar hypertrophy. Heart: Negative. RRR without obvious murmur, gallop, or rubs. No ectopy. Lungs: clear to auscultation, without rales or wheeze, good air exchange PAST MEDICAL HISTORY Diagnosis Date Sebaceous cyst of breast 03/23/2013 PAST SURGICAL HISTORY Procedure Laterality Date ESSURE 09/06/2013 in office [facility] HYSTERECTOMY HX PAST SURGICAL HISTORY OF 2006 Dx. Lap ovarian cyst ALLERGIES Amoxicillin and Sulfacetamide MEDICATIONS meloxicam (MOBIC) 15 mg tablet Take 1 tablet by mouth every afternoon. EYALURONIC ACID 10 mg/mL(mw 2.4 -3.6 million) injection INJECT 1 DOSE ONCE A WEEK FOR THE LEFT KNEE FOR 3 WEEKS (Patient not taking: Reported on 05/15/2024) azithromycin (ZITHROMAX) 250 mg tablet Take 2 tablets by mouth once daily for 1 day, THEN 1 tablet once daily for 4 days. predniSONE (DELTASONE) 10 mg tablet Take 4 tabs daily for 3 days, then 2 tabs daily for 3 days, then 1 tab daily for 3 days with food. (Patient not taking: Reported on 05/15/2024) FAMILY HISTORY Problem Relation Age of Onset Hypertension Mother Heart Sister Hypertension Maternal Grandmother Cancer Maternal Grandfather liver Hypertension Paternal Grandmother Heart Paternal Grandmother Diabetes Paternal Grandmother Social History Tobacco Use Smoking status: Never Smokeless tobacco: Never Vaping Use Vaping status: Never Used Substance Use Topics Alcohol use: No Drug use: No ASSESSMENT/PLAN: 1. Respiratory infection - ICD9: 519.8, ICD10: J98.8 - AZITHROMYCIN 250 MG TABLET Prescription instructions reviewed with patient as applicable. Potential red flag symptoms discussed with the patient. Reviewed appropriate action plan to take if red flag symptoms occur. Patient agreeable to treatment plan. Krystin Goodwin APRN.FRICKERTRON CHECKER Allergies As of Date: 05/15/2024 Noted Allergy Reaction AMOXICILLIN 11/14/2014 4 - Hives SULFACETAMIDE 05/10/2012 14 - Other: See Comments Comments: Eye gtts Date Reviewed: 05/15/2024 Reviewed by: Srikanth Reed MA - Fully Assessed Reason for Visit: Cough [28] Cmt: BRUNO, sore throat, stuffy nose, sneezing, fatigue x 5 days Primary Visit Diagnosis:Respiratory infection [J98.8] Order(s):azithromycin (ZITHROMAX) 250 mg tabletTake 2 tablets by mouth once daily for 1 day, THEN 1 tablet once daily for 4 days.Disp: 6 tabletRfl: 0 Prescriptions as of 05/15/2024 - EYALURONIC ACID 10 mg/mL(mw 2.4 -3.6 million) injection INJECT 1 DOSE ONCE A WEEK FOR THE LEFT KNEE FOR 3 WEEKS - meloxicam (MOBIC) 15 mg tablet Take 1 tablet by mouth every afternoon. - azithromycin (ZITHROMAX) 250 mg tablet Take 2 tablets by mouth once daily for 1 day, THEN 1 tablet once daily for 4 days. - predniSONE (DELTASONE) 10 mg tablet Take 4 tabs daily for 3 days, then 2 tabs daily for 3 days, then 1 tab daily for 3 days with food. Problem List As Of Date 05/15/2024 Noted Resolved UTI (lower urinary tract infection) [N39.0] 10/20/2012 10/22/2012 History of UTI [Z87.440] 10/26/2012 11/09/2012 Obesity, Class III, BMI 40-49.9 (morbid obesity*10/26/2012 Patient requested diagnostic testing [Z01.89] 10/26/2012 08/05/2013 Supervision of other normal [Z34.80] 12/08/ (more content not included)... Normal [facility] CNPNon 03-27-2024 CNPN Telephone ([facility]) BRADMARTHA ([id number]) 1980 F Date Time Provider Department 03/27/24 XAVIER SAL [facility] During your visit today, we recorded the following information about you: Xavier Sal PA 03/27/2024 8:41 AM Signed These contact patient and let her know she tested positive for COVID-19. Supportive treatment Martha Moraes MA 03/27/2024 9:01 AM Signed Patient given results and verbalized understanding of instructions given. Martha Moraes MA Allergies As of Date: 03/27/2024 Noted Allergy Reaction AMOXICILLIN 11/14/2014 4 - Hives SULFACETAMIDE 05/10/2012 14 - Other: See Comments Comments: Eye gtts Date Reviewed: 03/26/2024 Reviewed by: Neetu Martini LPN - Fully Assessed Reason for Visit: Results [95] Prescriptions as of 03/27/2024 - predniSONE (DELTASONE) 10 mg tablet Take 4 tabs daily for 3 days, then 2 tabs daily for 3 days, then 1 tab daily for 3 days with food. Problem List As Of Date 03/27/2024 Noted Resolved UTI (lower urinary tract infection) [N39.0] 10/20/2012 10/22/2012 History of UTI [Z87.440] 10/26/2012 11/09/2012 Obesity, Class III, BMI 40-49.9 (morbid obesity*10/26/2012 Patient requested diagnostic testing [Z01.89] 10/26/2012 08/05/2013 Supervision of other normal [Z34.80] 12/08/2012 08/05/2013 Sebaceous cyst of breast [N60.89] 03/23/2013 Right knee pain [M25.561] 06/21/2019 Encounter Status:Closed by MARTHA MORAES on 03/27/24 Normal [facility] CNOVon 03-26-2024 CNOV Office Visit ([facility] ) MARTHA WARD ([id number]) 1980 F Date Time Provider Department 03/26/24 3:00 PM NUVIA BHAKTA [facility] During your visit today, we recorded the following information about you: Temperature Pulse Respiration Blood pressure 98.2 degrees 79/minute 18/minute 110/78 Weight 118.2 kg Nuvia Bhakta APRN.FRICKERTRON CHECKER 03/26/2024 3:28 PM Signed This note was created using Locallyriter. Subjective Martha Ward is a 43 year old female. 43 year old female with no significant PMH presents for illness. Acute onset 2 days ago +fatigue +headache + cough +sore throat +chills Denies fever Denies N/V/D Denies SOB or dyspnea Denies abdominal pain Home COVID positive today States that family members tested POSITIVE as well Just want to check The history is provided by the patient. No online merchandising coordinator was used. Cough This is a new problem. The current episode started 2 days ago. The problem occurs constantly. The problem has not changed since onset.The cough is Non-productive. There has been no fever. Associated symptoms include chills, headaches and rhinorrhea. Pertinent negatives include no chest pain, no sweats, no weight loss, no ear congestion, no ear pain, no sore throat, no myalgias, no shortness of breath, no wheezing and no eye redness. She has tried nothing for the symptoms. The treatment provided no relief. She is not a smoker. Her past medical history does not include bronchitis, pneumonia, bronchiectasis, COPD, emphysema or asthma. PAST MEDICAL HISTORY 03/23/2013: Sebaceous cyst of breast PAST SURGICAL HISTORY 09/06/2013: ESSURE Comment: in office [facility] No date: HYSTERECTOMY HX 2006: PAST SURGICAL HISTORY OF Comment: Dx. Lap ovarian cyst ALLERGIES Amoxicillin and Sulfacetamide MEDICATIONS predniSONE (DELTASONE) 10 mg tablet Take 4 tabs daily for 3 days, then 2 tabs daily for 3 days, then 1 tab daily for 3 days with food. FAMILY HISTORY Problem Relation Age of Onset Hypertension Mother Heart Sister Hypertension Maternal Grandmother Cancer Maternal Grandfather liver Hypertension Paternal Grandmother Heart Paternal Grandmother Diabetes Paternal Grandmother Social History Tobacco Use Smoking status: Never Smokeless tobacco: Never Vaping Use Vaping Use: Never used Substance Use Topics Alcohol use: No Drug use: No Review of Systems Constitutional: Positive for chills and fatigue. Negative for weight loss. HENT: Positive for congestion and rhinorrhea. Negative for ear pain and sore throat. Eyes: Negative for discharge, redness and itching. Respiratory: Positive for cough. Negative for apnea, chest tightness, shortness of breath and wheezing. Cardiovascular: Negative for chest pain. Gastrointestinal: Negative for abdominal pain, diarrhea and nausea. Musculoskeletal: Negative for myalgias. Allergic/Immunologic: Negative for environmental allergies, food allergies and immunocompromised state. Neurological: Positive for headaches. Negative for dizziness and facial asymmetry. Hematological: Negative for adenopathy. Does not bruise/bleed easily. Psychiatric/Behavioral: Negative for agitation and behavioral problems. Objective BP 110/78 Pulse 79 Temp 36.8 ?C (98.2 ?F) (Tympanic) Resp 18 Wt 118.2 kg (260 lb 9.3 oz) LMP 09/13/2014 SpO2 96% BMI 43.36 kg/m? Physical Exam Vitals and nursing note reviewed. Constitutional: General: She is not in acute distress. Appearance: Normal appearance. She is obese. She is not ill-appearing, toxic-appearing or diaphoretic. HENT: Head: Normocephalic and atraumatic. Right Ear: Ear canal and external ear normal. Left Ear: Ear canal and external ear normal. Nose: Nose normal. No congestion or rhinorrhea. Mouth/Throat: Mouth: Mucous membranes are moist. Pharynx: No oropharyngeal exudate or posterior oropharyngeal erythema. Eyes: General: Right eye: No discharge. Left eye: No discharge. Extraocular Movements: Extraocular movements intact. Conjunctiva/sclera: Conjunctivae normal. Pupils: Pupils are equal, round, and reactive to light. Cardiovascular: Rate and Rhythm: Normal rate and regular rhythm. Pulses: Normal pulses. Heart sounds: Normal heart sounds. No murmur heard. No friction rub. Pulmonary: Effort: Pulmonary effort is normal. No respiratory distress. Breath sounds: Normal breath sounds. No stridor. No wheezing, rhonchi or rales. Chest: Chest wall: No tenderness. Abdominal: General: Abdomen is flat. There is no distension. Palpations: Abdomen is soft. There is no mass. Tenderness: There is no abdominal tenderness. There is no right CVA tenderness, left CVA tenderness, guarding or rebound. Hernia: No hernia is present. Musculoskeletal: General: No swelling, tenderness, deformity or signs of injury. Normal range of motion. Cervical (more content not included)... Normal [facility] COVID AND INFLUENZA A/B AND RSV NAAT, ROUTINEon 03-26-2024 SARS-CoV-2 (COVID-19) RNA GHULAM+probe Ql (Unsp spec) COVID 19 RESULT: Detected The method used is RT-PCR or an equivalent NAAT method. Reference Range (the expected result in uninfected individuals): Not detected INFLUENZA A PCR: Not detected INFLUENZA B PCR: Not detected RSV PCR: Not detected Abnormal [facility] Comment on above: Performed By: #### C VFLRS ####[facility] LABCLIA [id number] [address] [place] CNOVon 03-07-2024 [facility] MARTHA WARD ([id number]) 1980 F Date Time Provider Department 03/07/24 10:15 AM FREDDY LYONS [facility] During your visit today, we recorded the following information about you: Temperature Pulse Respiration Blood pressure 98.9 degrees 75/minute 21/minute 110/82 Weight 118.2 kg Freddy Lyons APRN.FRICKERTRON CHECKER 03/07/2024 10:53 AM Signed Subjective HPI Nontoxic-appearing female presents urgent care chief complaint right elbow pain. Duration of symptoms 4 weeks. Associated symptoms right elbow pain some episodic nervelike pain into her fingers. Patient states 4 weeks ago she hit her elbow on the side of the wall. Thought she did struck her funny bone. 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 Presents today with persistent pain. No significant decreased range of motion however this does elect pain. No swelling. No bruising. No breaks in skin. [id number]. No surgeries or fractures previously. Past medical history prescription medications allergies reviewed. .Patient presents with: Trauma: Right elbow pain, ran into wall x 4 weeks PAST MEDICAL HISTORY Diagnosis Date Sebaceous cyst of breast 03/23/2013 PAST SURGICAL HISTORY Procedure Laterality Date ESSURE 09/06/2013 in office [facility] HYSTERECTOMY HX PAST SURGICAL HISTORY OF 2006 Dx. Lap ovarian cyst ALLERGIES Amoxicillin and Sulfacetamide MEDICATIONS predniSONE (DELTASONE) 10 mg tablet Take 4 tabs daily for 3 days, then 2 tabs daily for 3 days, then 1 tab daily for 3 days with food. (Patient not taking: Reported on 03/07/2024) FAMILY HISTORY Problem Relation Age of Onset Hypertension Mother Heart Sister Hypertension Maternal Grandmother Cancer Maternal Grandfather liver Hypertension Paternal Grandmother Heart Paternal Grandmother Diabetes Paternal Grandmother Social History Tobacco Use Smoking status: Never Smokeless tobacco: Never Vaping Use Vaping Use: Never used Substance Use Topics Alcohol use: No Drug use: No BP 110/82 Pulse 75 Temp 37.2 ?C (98.9 ?F) Resp 21 Wt 118.2 kg (260 lb 9.3 oz) LMP 09/13/2014 SpO2 99% BMI 43.36 kg/m? Review of Systems Constitutional: Negative for chills, fever and malaise/fatigue. HENT: Negative for congestion, ear discharge, ear pain, sinus pain and sore throat. Eyes: Negative for blurred vision, pain, discharge and redness. Respiratory: Negative for cough, hemoptysis, sputum production, shortness of breath, wheezing and stridor. Cardiovascular: Negative for chest pain. Gastrointestinal: Negative for abdominal pain, diarrhea, nausea and vomiting. Musculoskeletal: Positive for joint pain. Negative for back pain, falls, myalgias and neck pain. Skin: Negative for itching and rash. Neurological: Negative for dizziness and headaches. Objective Physical Exam Constitutional: General: She is not in acute distress. Appearance: She is not toxic-appearing. HENT: Head: Normocephalic. Nose: Nose normal. Eyes: Pupils: Pupils are equal, round, and reactive to light. Cardiovascular: Rate and Rhythm: Normal rate. Pulmonary: Effort: Pulmonary effort is normal. No respiratory distress. Musculoskeletal: Right upper arm: Normal. Right elbow: No swelling, deformity, effusion or lacerations. Decreased range of motion. Tenderness present in radial head. Right forearm: Normal. Right wrist: No bony tenderness or snuff box tenderness. Normal range of motion. Right hand: No swelling, tenderness or bony tenderness. Normal range of motion. Normal strength. Normal sensation. Normal capillary refill. Normal pulse. Cervical back: Normal range of motion. Comments: Neurovascular intact. No decreased range of motion. No weakness. Pain with supination. Skin: General: Skin is warm and dry. Neurological: General: No focal deficit present. Mental Status: She is alert. ASSESSMENT/PLAN: 1. Injury of right elbow, initial encounter - ICD9: 959.3, ICD10: S59.901A - XR ELBOW SPECIAL VIEWS AP/LAT/OTHER RIGHT IMPRESSION: No acute radiographic abnormalities seen in the right elbow. No acute findings noted on x-ray. Nerve impingement versus contusion. Referred to orthopedics. Patient was educated on supportive therapies. Patient will follow up with primary care provider as needed. Patient was instructed to immediately proceed to emergency room for any new, worsening, or symptoms lasting longer than anticipated. The patient's clinical presentation is otherwise unremarkable at this time. Based on exam and clinical finding, the patient is stable for discharge. Plan of care was discussed with patient. Patient verbalizes understanding and agrees to plan of care. This note was generated using Appydrink software. It may contain errors in wording, punctuation, or spelling. Freddy Lyons APRN.FRICKERTRON CHECKER (more content not included)... Normal [facility] XR ELBOW 3V AP/LAT/OTHER RTo n 03-07-2024 XR ELBOW 3V AP/LAT/OTHER RT * * *Final Report* * * DATE OF EXAM: Mar 07 2024 10:36AM WOX [id number] - XR ELBOW 3V AP/LAT/OTHER RT / PROCEDURE REASON: Injury of right elbow, initial encounter * * * * Physician Interpretation * * * * EXAM TITLE: XR ELBOW 3V AP/LAT/OTHER RT EXAM DATE/TIME: 03/07/2024 10:36 AM COMPARISON: None. CLINICAL INDICATION/HISTORY: Injury TECHNIQUE: AP, lateral and radial head views of the right elbow are presented. FINDINGS: No acute fractures or subluxations are noted. The radiocapitellar and ulnotrochlear joint spaces are maintained, without obvious osteophyte formation. There is no joint effusion seen. The mineralization of the bones is normal. There is no significant soft tissue swelling. IMPRESSION: No acute radiographic abnormalities seen in the right elbow. Director Of Social Media Marketing: [facility] Transcribe Date/Time: Mar 07 2024 10:39A Dictated by : ELOINA YANG MD This examination was interpreted and the report reviewed and electronically signed by: ELOINA YANG MD on Mar 07 2024 10:45AM EST [id number] Normal [facility] XR Elbow - right AP and Late ral and obliqueon 03-07-2024 IMPRESSION: No acute radiographic abnormalities seen in the right elbow. Director Of Social Media Marketing: [facility] Transcribe Date/Time: Mar 07 2024 10:39A Dictated by : ELOINA YANG MD This examination was interpreted and the report reviewed and electronically signed by: ELOINA YANG MD on Mar 07 2024 10:45AM EST DIVISION OF RADIOLOGY * * *Final Report* * * DATE OF EXAM: Mar 07 2024 10:36AM WOX [id number] - XR ELBOW 3V AP/LAT/OTHER RT / PROCEDURE REASON: Injury of right elbow, initial encounter * * * * Physician Interpretation * * * * EXAM TITLE: XR ELBOW 3V AP/LAT/OTHER RT EXAM DATE/TIME: 03/07/2024 10:36 AM COMPARISON: None. CLINICAL INDICATION/HISTORY: Injury TECHNIQUE: AP, lateral and radial head views of the right elbow are presented. FINDINGS: No acute fractures or subluxations are noted. The radiocapitellar and ulnotrochlear joint spaces are maintained, without obvious osteophyte formation. There is no joint effusion seen. The mineralization of the bones is normal. There is no significant soft tissue swelling. DIVISION OF RADIOLOGY Provider, [facility] - 03/07/2024 * * *Final Report* * * DATE OF EXAM: Mar 07 2024 10:36AM WOX [id number] - XR ELBOW 3V AP/LAT/OTHER RT / PROCEDURE REASON: Injury of right elbow, initial encounter * * * * Physician Interpretation * * * * EXAM TITLE: XR ELBOW 3V AP/LAT/OTHER RT EXAM DATE/TIME: 03/07/2024 10:36 AM COMPARISON: None. CLINICAL INDICATION/HISTORY: Injury TECHNIQUE: AP, lateral and radial head views of the right elbow are presented. FINDINGS: No acute fractures or subluxations are noted. The radiocapitellar and ulnotrochlear joint spaces are maintained, without obvious osteophyte formation. There is no joint effusion seen. The mineralization of the bones is normal. There is no significant soft tissue swelling. IMPRESSION IMPRESSION: No acute radiographic abnormalities seen in the right elbow. Director Of Social Media Marketing: [facility] Transcribe Date/Time: Mar 07 2024 10:39A Dictated by : ELOINA YANG MD This examination was interpreted and the report reviewed and electronically signed by: ELOINA YANG MD on Mar 07 2024 10:45AM EST Radiology Study observation (narrative) XR Elbow - right AP and Late ral and obliqueOrdered By: [facility] Provider on 03-07-2024 CNOVon 12-18-2023 [facility] MARTHA WARD ([id number]) 1980 F Date Time Provider Department 12/18/23 7:00 PM NUVIA BHAKTA [facility] During your visit today, we recorded the following information about you: Temperature Pulse Respiration Blood pressure 98.1 degrees 57/minute 18/minute 121/80 Weight 116 kg Nuvia Bhakta APRN.CNP 12/18/2023 7:29 PM Signed This note was created using NoteWriter. Subjective Martha Ward is a 43 year old female. 43 year old female with no PMH presents for jaw pain. Acute onset of symptoms Ongoing for one week It is my TMJ +bilateral jaw pain +clicking +pain with eating Denies fever or chills Denies trauma or injury Denies jaw locking Has used Tylenol, Ibuprofen, heating pad. Steroids usually work for me Endorses she has a dentist. The history is provided by the patient. No online merchandising coordinator was used. Mouth/Lip Problem This is a new problem. The current episode started in the past 7 days. The problem occurs constantly. The problem has been unchanged. Pertinent negatives include no abdominal pain, anorexia, arthralgias, change in bowel habit, chest pain, chills, congestion, coughing, diaphoresis, fatigue, fever, headaches, joint swelling, myalgias, nausea, neck pain, numbness, rash, sore throat, swollen glands, urinary symptoms, vertigo, visual change, vomiting or weakness. Exacerbated by: eating and drinking. She has tried acetaminophen and heat (ibuprofen) for the symptoms. PAST MEDICAL HISTORY Diagnosis Date Sebaceous cyst of breast 03/23/2013 PAST SURGICAL HISTORY Procedure Laterality Date ESSURE 09/06/2013 in office [facility] HYSTERECTOMY HX PAST SURGICAL HISTORY OF 2006 Dx. Lap ovarian cyst ALLERGIES Amoxicillin and Sulfacetamide MEDICATIONS predniSONE (DELTASONE) 10 mg tablet Take 4 tabs daily for 3 days, then 2 tabs daily for 3 days, then 1 tab daily for 3 days with food. FAMILY HISTORY Problem Relation Age of Onset Hypertension Mother Heart Sister Hypertension Maternal Grandmother Cancer Maternal Grandfather liver Hypertension Paternal Grandmother Heart Paternal Grandmother Diabetes Paternal Grandmother Social History Tobacco Use Smoking status: Never Smokeless tobacco: Never Vaping Use Vaping Use: Never used Substance Use Topics Alcohol use: No Drug use: No Review of Systems Constitutional: Negative for chills, diaphoresis, fatigue and fever. HENT: Negative for congestion and sore throat. +jaw pain Eyes: Negative for pain, discharge, redness and itching. Respiratory: Negative for apnea, cough, choking and chest tightness. Cardiovascular: Negative for chest pain. Gastrointestinal: Negative for abdominal pain, anorexia, change in bowel habit, nausea and vomiting. Musculoskeletal: Negative for arthralgias, joint swelling, myalgias and neck pain. Skin: Negative for color change, pallor and rash. Allergic/Immunologic: Negative for environmental allergies, food allergies and immunocompromised state. Neurological: Negative for vertigo, weakness, numbness and headaches. Hematological: Negative for adenopathy. Does not bruise/bleed easily. Psychiatric/Behavioral: Negative for agitation and behavioral problems. Objective LMP 09/13/2014 BP 121/80 Pulse (!) 57 Temp 36.7 ?C (98.1 ?F) Resp 18 Wt 116 kg (255 lb 11.7 oz) LMP 09/13/2014 SpO2 99% BMI 42.56 kg/m? Physical Exam Vitals and nursing note reviewed. Constitutional: General: She is not in acute distress. Appearance: Normal appearance. She is normal weight. She is not ill-appearing, toxic-appearing or diaphoretic. HENT: Head: Normocephalic and atraumatic. Jaw: Tenderness and pain on movement present. Comments: Right TMJ clicking No trismus Uvula midline Handling secretions. Right Ear: Ear canal and external ear normal. Left Ear: Ear canal and external ear normal. Nose: Nose normal. No congestion or rhinorrhea. Mouth/Throat: Mouth: Mucous membranes are moist. Pharynx: No oropharyngeal exudate or posterior oropharyngeal erythema. Eyes: General: Right eye: No discharge. Left eye: No discharge. Extraocular Movements: Extraocular movements intact. Conjunctiva/sclera: Conjunctivae normal. Pupils: Pupils are equal, round, and reactive to light. Cardiovascular: Rate and Rhythm: Normal rate and regular rhythm. Pulses: Normal pulses. Heart sounds: Normal heart sounds. No murmur heard. No friction rub. Pulmonary: Effort: Pulmonary effort is normal. No respiratory distress. Breath sounds: Normal breath sounds. No stridor. No wheezing, rhonchi or rales. Chest: Chest wall: No tenderness. Abdominal: General: Abdomen is flat. There is no distension. Palpations: Abdomen is soft. There is no mass. Tenderness: There is no abdominal tenderness. There is no right CVA tenderness, left CVA tenderness, guar (more content not included)... Normal [facility] Absolute lymphocyte countOrd ered By: Cleo Gonzalez on 11-17-2023 Lymphocytes Auto (Unsp spec) [#/Vol] 1.67 10*3/uL 0.83-4.51 [facility] Automated lymphocyte count a s percentage of total leukocytesOrdered By: Cleo Gonzalez on 11-17-2023 Lymphocytes/100 WBC Auto (Unsp spec) 35.6 % 19-41 [facility] Basophil percentageOrdered B y: Cleo Gonzalez on 11-17-2023 Basophils/100 WBC (Bld) 1.1 % 0-1 [facility] Bilirubin [Mass/Vol] 0.40 mg/dL 0.20-1.00 [facility] Comment on above: For patients on eltr ombopag therapy, use of Dimension [place] TBIL is not recommended. Chloride [Moles/Vol] 107 mmol/L 98-107 [facility] Cholesterol [Mass/Vol] 215 mg/dL <200 [facility] Comment on above: <200 mg/dL Desirable 200-240 mg/dL Borderline >240 mg/dL High Risk Eosinophils/100 WBC (Bld) 3.4 % 0-5 [facility] Glucose [Mass/Vol] 92 mg/dL 74-106 [facility] Hemoglobin (Bld) [Mass/Vol] 13.6 g/dL 12.0-15.0 [facility] Monocytes/100 WBC (Bld) 7.9 % 0-10 [facility] Neutrophils (Bld) [#/Vol] 2.4 10*3/uL 2.0-7.7 [facility] Neutrophils/100 WBC (Bld) 51.8 % 47-70 [facility] [facility] [place] Potassium [Moles/Vol] 4.0 mmol/L 3.5-5.1 [facility] Protein [Mass/Vol] 6.9 g/dL 6.4-8.2 [facility] Sodium [Moles/Vol] 140 mmol/L 136-145 [facility] Triglyceride [Mass/Vol] 94 mg/dL <199 [facility] Comment on above: The drugs N-Acetylcy steine and Metamizole may falsely depress this assay.Serum Triglycerides Reference Interval Normal <150 mg/dL Borderline high 150 - 199 mg/dL High 200 - 499 mg/dL Very High > or = 500 mg/dL WBC (Bld) [#/Vol] 4.7 10*3/uL 4.4-11.0 [facility] Determination of erythrocyte mean corpuscular volume (MCV)Ordered By: Cleo Gonzalez on 11-17-2023 MCV (RBC) [Entitic vol] 95.0 fL 81-99 [facility] ESRon 11-17-2023 Erythrocyte Sed Rate 13 mm/hr Normal 0-20 [facility] ([place]) Comment on above: Performed By: #### E SR #### [facility] [address] [place], [place] [address] Erythrocyte distribution wid th ratioOrdered By: Cleo Gonzalez on 11-17-2023 Erythrocyte distribution width (RBC) [Ratio] 13.0 % 11.6-14.6 [facility] Erythrocyte distribution wid th standard deviationOrdered By: Cleo Gonzalez on 11-17-2023 Erythrocyte distribution width (RBC) [Entitic vol] 45.4 fL 35.1-43.9 [facility] Erythrocyte sedimentation ra teOrdered By: Cleo Gonzalez on 11-17-2023 ESR (Bld) [Velocity] 13 mm/h 0-30 [facility] Comment on above: TESTING PERFORMED AT [facility]. ORIGINAL REPORT ON FILE IN LAB CONTAINS ADDITIONAL TEST SITE INFORMATION. Hematocrit Auto (Bld) [Volum e fraction]Ordered By: Cleo Gonzalez on 11-17-2023 Hematocrit (Bld) [Volume fraction] 41.7 % 37-47 [facility] Immature granulocytes/100 WB C Auto (Bld)Ordered By: Cleo Gonzalez on 11-17-2023 Immature granulocytes/100 WBC (Bld) 0.200 % 0.0-0.9 [facility] Comment on above: IG% - Immature Granu locytes (promyelocytes, myelocytes and metamyelocytes) > 1% indicates that a LEFT SHIFT is Present. LABORATORYOrdered By: Gideon Avila on 11-17-2023 ESR Photometric method (Bld) [Velocity] 13 mm/hr Normal 0 - 20 mm/hr AO Man Heme SS Laboratory - Chemistry and C hemistry - challengeOrdered By: Cleo Gonzalez on 11-17-2023 Albumin/Globulin [Mass ratio] 1.0 {ratio} 0.9-2.4 [facility] ALP [Catalytic activity/Vol] 65 U/L 45-117 [facility] ALT [Catalytic activity/Vol] 35 U/L 13-56 [facility] Cholesterol in HDL [Mass/Vol] 63 mg/dL >40 [facility] Comment on above: The drugs N-Acetylcy steine and Metamizole may falsely depress this assay. Reference Range HDL <40 mg/dL Low HDL Cholesterol HDL >or= 60 mg/dL High HDL Cholesterol Cholesterol in LDL [Mass/Vol] 133 mg/dL 0-130 [facility] CO2 [Moles/Vol] 27.0 mmol/L 21.0-32.0 [facility] Globulin (S) [Mass/Vol] 3.4 g/dL 2.2-4.2 [facility] Urea nitrogen/Creatinine [Mass ratio] 8.0 mg/mg 10-20 [facility] Laboratory - Hematology and Cell countsOrdered By: Cleo Gonzalez on 11-17-2023 MCH (RBC) [Entitic mass] 31.0 pg 27.0-32.0 [facility] MCHC (RBC) [Mass/Vol] 32.6 g/dL 32-36 [facility] Nucleated RBC/100 WBC (Bld) [Ratio] 0 % 0-5 [facility] Platelet mean volume (Bld) [Entitic vol] 10.0 fL 6.2-12.0 [facility] Platelets (Bld) [#/Vol] 309 10*3/uL 150-450 [facility] No Panel InformationOrdered By: Cleo Gonzalez on 11-17-2023 Anti-Nuclear Antibody Screen Negative Negative [facility] Comment on above: [facility]formed at[facility] [address] [id number] Director: Carlos Burgos PhD, Phone: [phone] [employer] B Antibody Not Reportable [facility] Estimated GFR (MDRD) Amer 109 mL/min >60 [facility] Comment on above: GFR Calc Estimated GFR (MDRD) Non-Af Amer 90 mL/min >60 [facility] Comment on above: Non- GFR Calc Follicle Stimulating Hormone 7.8 mIU/mL [facility] Comment on above: NORMAL REFERENCE RAN GES FEMALE FOLLICULAR 2.3 - 12.6 mIU/mL MID-CYCLE PEAK 5.2 - 17.5 mIU/mL LUTEAL 1.7 - 12.9 mIU/mL POST-MENOPAUSAL ON MHT 5.9 - 72.8 mIU/mL NOT ON MHT 12.7 - 132.2 mlU/mL MALE 0.7 - 10.8 mIU/mL DAVID-1 Antibody Not Reportable [facility] Luteinizing Hormone 1.7 mIU/mL [facility] Comment on above: NORMAL REFERENCE RAN GES FEMALE FOLLICULAR 1.9 - 26.2 mIU/mL MID-CYCLE PEAK 22.8 - 76.1 mIU/mL LUTEAL 0.6 - 16.6 mIU/mL POST-MENOPAUSAL ON MHT 1.1 - 52.4 mIU/mL NOT ON MHT 8.6 - 61.8 mIU/mL MALE 1.2 - 10.6 mIU/mL MEAT PUMPER Antibody Not Reportable [facility] SM Antibody Not Reportable [facility] SS-A/Ro IgG Antibody Not Reportable [facility] SS-B/La IgG Antibody Not Reportable [facility] Vitamin D 25-Hydroxy 23.6 ng/mL [facility] Comment on above: Vitamin D 25(OH) Sta tus Range Deficiency <20 ng/mL (50nmol/L) Insufficiency 20 - 30 ng/mL (50 - 75 nmol/L) Sufficiency 30 - 100 ng/mL (75 - 250 nmol/L) Toxicity >100 ng/mL (>250 nmol/L) VLDL Cholesterol 19 mg/dL 5-40 [facility] RBC Auto (Bld) [#/Vol]Ordere d By: Cleo Gonzalez on 11-17-2023 RBC (Bld) [#/Vol] 4.39 10*6/uL 4.2-5.4 [facility] Serum DNA double strand anti body assay (units/volume)Ordered By: Cleo Gonzalez on 11-17-2023 DNA double strand Ab Qn (S) Not Reportable [facility] Serum Scl-70 antibody assay (units/volume)Ordered By: Cleo Gonzalez on 11-17-2023 SCL-70 extractable nuclear Ab Qn (S) Not Reportable [facility] Serum or plasma calcium danielle urement (mass/volume)Ordered By: Cleo Gonzalez on 11-17-2023 Calcium [Mass/Vol] 8.8 mg/dL 8.5-10.1 [facility] Serum or plasma creatinine m easurement (mass/volume)Ordered By: Cleo Gonzalez on 11-17-2023 Creatinine [Mass/Vol] 0.75 mg/dL 0.55-1.02 [facility] Comment on above: The validity of the calculated GFR & GFRAA in patients over 70 years has not been determined. Clinical correlation is essential. Serum or plasma estrogen tian surement (mass/volume)Ordered By: Cleo Gonzalez on 11-17-2023 Estrogen [Mass/Vol] 195 pg/mL . [facility] Comment on above: Prepubertal < 40 Fem maxwell Cycle: 1-10 Days 16 - 328 11-20 Days 34 - 501 21-30 Days 48 - 350 Post-Menopausal 40 - 244Performed at: [facility] - [facility] [address] [id number] Director: Fabrice Oakley MD, Phone: [phone] Serum or plasma thyroid stim ulating hormone (TSH) measurement (units/volume)Ordered By: Cleo Gonzalez on 11-17-2023 TSH Qn 2.09 uIU/mL 0.358-3.74 [facility] Serum or plasma urea nitroge n measurement (mass/volume)Ordered By: Cleo Gonzalez on 11-17-2023 Urea nitrogen [Mass/Vol] 6 mg/dL 7-18 [facility] Thin prep Papanicolaou smear with manual screeningOrdered By: Cleo Gonzalez on 11-17-2023 Thin prep Papanicolaou smear with manual screening 3.5 g/dL 3.2-5.0 [facility] Thin prep Papanicolaou smear with manual screening 30 U/L 15-37 [facility] Thin prep Papanicolaou smear with manual screening 6 5-15 [facility] XR Chest PA and Lateralon IMPRESSION: No acute radiographic abnormality. Director Of Social Media Marketing: JOEL Transcribe Date/Time: Jun 08 2023 9:20A Dictated by : DARRELL WILKINS MD This examination was interpreted and the report reviewed and electronically signed by: DARRELL WILKINS MD on Jun 08 2023 9:21AM [facility] DIVISION OF RADIOLOGY * * *Final Report* * * DATE OF EXAM: Jun 08 2023 9:16AM WOX 5291 - XR CHEST 2V FRONTAL/LAT / PROCEDURE REASON: Acute cough * * * * Physician Interpretation * * * * EXAMINATION: CHEST RADIOGRAPH (2 VIEW FRONTAL & LATERAL) CLINICAL HISTORY: Acute cough MQ: XC2_6 EXAM DATE/TIME: 06/08/2023 9:16 AM COMPARISON: No relevant prior studies available. RESULT: Lines, tubes, and devices: None. Lungs and pleura: No consolidation. No lung mass. No pleural effusion. No pneumothorax. Cardiomediastinal silhouette: Normal cardiomediastinal silhouette. Bones and soft tissues: Unremarkable. DIVISION OF RADIOLOGY Provider, [facility] - 06/08/2023 * * *Final Report* * * DATE OF EXAM: Jun 08 2023 9:16AM WOX 5291 - XR CHEST 2V FRONTAL/LAT / PROCEDURE REASON: Acute cough * * * * Physician Interpretation * * * * EXAMINATION: CHEST RADIOGRAPH (2 VIEW FRONTAL & LATERAL) CLINICAL HISTORY: Acute cough MQ: XC2_6 EXAM DATE/TIME: 06/08/2023 9:16 AM COMPARISON: No relevant prior studies available. RESULT: Lines, tubes, and devices: None. Lungs and pleura: No consolidation. No lung mass. No pleural effusion. No pneumothorax. Cardiomediastinal silhouette: Normal cardiomediastinal silhouette. Bones and soft tissues: Unremarkable. IMPRESSION IMPRESSION: No acute radiographic abnormality. Director Of Social Media Marketing: JOEL Transcribe Date/Time: Jun 08 2023 9:20A Dictated by : DARRELL WILKINS MD This examination was interpreted and the report reviewed and electronically signed by: DARRELL WILKINS MD on Jun 08 2023 9:21AM EST Radiology Study observation (narrative) XR Chest PA and LateralOrder ed By: [facility] Provider on 06-08-2023 Laboratory - Microbiology an d Antimicrobial susceptibilityon 11-07-2022 S. pyogenes Ag IA Ql (Unsp spec) Negative [facility] Absolute lymphocyte counton 03-10-2022 Lymphocytes Auto (Unsp spec) [#/Vol] 1.80 10*3/uL 0.83-4.51 [facility] Work Phone: Basophil percentageon 2021 Basophils/100 WBC (Bld) 0.6 % 0-1 [facility] Work Phone: Bilirubin [Mass/Vol] 0.40 mg/dL 0.20-1.00 [facility] Work Phone: [phone] Comment on above: For patients on eltr ombopag therapy, use of Dimension [place] TBIL is not recommended. Chloride [Moles/Vol] 107 mmol/L 98-107 [facility] Work Phone: Eosinophils/100 WBC (Bld) 1.8 % 0-5 [facility] Work Phone: Glucose [Mass/Vol] 102 mg/dL 74-106 [facility] Work Phone: [phone] Comment on above: Fasting Glucose resu lt from 100 to 125 mg/dL suggests IMPAIRED HOMEOSTASIS per A.D.A. criteria. Neutrophils (Bld) [#/Vol] 4.4 10*3/uL 2.0-7.7 [facility] Work Phone: Neutrophils/100 WBC (Bld) 65.3 % 47-70 [facility] Work Phone: Potassium [Moles/Vol] 3.6 mmol/L 3.5-5.1 [facility] Work Phone: Protein [Mass/Vol] 6.6 g/dL 6.4-8.2 [facility] Work Phone: Sodium [Moles/Vol] 140 mmol/L 136-145 [facility] Work Phone: [phone] WBC (Bld) [#/Vol] 6.7 10*3/uL 4.4-11.0 [facility] Work Phone: Blood erythrocytes count (nu mber/volume)on 03-10-2022 RBC (Bld) [#/Vol] 4.41 10*6/uL 4.2-5.4 [facility] Work Phone: [phone] Blood hemoglobin measurement (mass/volume)on 03-10-2022 Hemoglobin (Bld) [Mass/Vol] 14.0 g/dL 12.0-15.0 [facility] Work Phone: [phone] Blood lymphocytes/100 leukoc yteson 03-10-2022 Lymphocytes/100 WBC (Bld) 26.8 % 19-41 [facility] Work Phone: [phone] Blood monocytes/100 leukocyt eson 03-10-2022 Monocytes/100 WBC (Bld) 5.1 % 0-10 [facility] Work Phone: [phone] Blood platelet mean volumeon 03-10-2022 Platelet mean volume (Bld) [Entitic vol] 9.6 fL 6.2-12.0 [facility] Work Phone: [phone] Determination of erythrocyte mean corpuscular volume (MCV)on 03-10-2022 MCV (RBC) [Entitic vol] 96.6 fL 81-99 [facility] Work Phone: Hematocrit Auto (Bld) [Volum e fraction]on 03-10-2022 Hematocrit (Bld) [Volume fraction] 42.6 % 37-47 [facility] Work Phone: Laboratory - Chemistry and C hemistry - challengeon 03-10-2022 ALP [Catalytic activity/Vol] 50 U/L 45-117 [facility] Work Phone: ALT [Catalytic activity/Vol] 16 U/L 13-56 [facility] Work Phone: [phone] CO2 [Moles/Vol] 29.0 mmol/L 21.0-32.0 [facility] Work Phone: Globulin (S) [Mass/Vol] 2.9 g/dL 2.2-4.2 [facility] Work Phone: Urea nitrogen/Creatinine [Mass ratio] 12.6 mg/mg 10-20 [facility] Work Phone: Laboratory - Hematology and Cell countson 03-10-2022 Erythrocyte distribution width (RBC) [Entitic vol] 43.8 fL 35.1-43.9 [facility] Work Phone: Erythrocyte distribution width (RBC) [Ratio] 12.3 % 11.6-14.6 [facility] Work Phone: Immature granulocytes/100 WBC (Bld) 0.400 % 0.0-0.9 [facility] Work Phone: Comment on above: IG% - Immature Granu locytes (promyelocytes, myelocytes and metamyelocytes) > 1% indicates that a LEFT SHIFT is Present. MCH (RBC) [Entitic mass] 31.7 pg 27.0-32.0 [facility] Work Phone: Nucleated RBC/100 WBC (Bld) [Ratio] 0 % 0-5 [facility] Work Phone: MCHC Auto (RBC) [Mass/Vol]on 03-10-2022 MCHC (RBC) [Mass/Vol] 32.9 g/dL 32-36 [facility] Work Phone: No Panel Informationon 03-10 Estimated GFR (MDRD) Amer 103 mL/min >60 [facility] Work Phone: Comment on above: GFR Calc Estimated GFR (MDRD) Non-Af Amer 85 mL/min >60 [facility] Work Phone: Comment on above: Non- GFR Calc Platelets bldon 03-10-2022 Platelets (Bld) [#/Vol] 255 10*3/uL 150-450 [facility] Work Phone: Serum or plasma albumin danielle urement (mass/volume)on 03-10-2022 Albumin [Mass/Vol] 3.7 g/dL 3.2-5.0 [facility] Work Phone: Serum or plasma albumin/glob ulin mass ratioon 03-10-2022 Albumin/Globulin [Mass ratio] 1.3 {ratio} 0.9-2.4 [facility] Work Phone: Serum or plasma calcium danielle urement (mass/volume)on 03-10-2022 Calcium [Mass/Vol] 9.0 mg/dL 8.5-10.1 [facility] Work Phone: Serum or plasma creatinine m easurement (mass/volume)on 03-10-2022 Creatinine [Mass/Vol] 0.79 mg/dL 0.55-1.02 [facility] Work Phone: Comment on above: The validity of the calculated GFR & GFRAA in patients over 70 years has not been determined. Clinical correlation is essential. Serum or plasma urea nitroge n measurement (mass/volume)on 03-10-2022 Urea nitrogen [Mass/Vol] 10 mg/dL 7-18 [facility] Work Phone: Thin prep Papanicolaou smear with manual screeningon 03-10-2022 Thin prep Papanicolaou smear with manual screening 10 U/L 15-37 [facility] Work Phone: Thin prep Papanicolaou smear with manual screening 4 5-15 [facility] Work Phone: Large Joint Arthro/Inj: R kn ee joint Vital Signs Date Time Vital Sign Value Performing Clinician Facility 02-20-2025 11:23-0400 Body height 165.[address] Cleo Gonzalez MD Work Phone: [facility] 02-20-2025 11:23-0400 Body mass index (BMI) [Ratio] 44.6 kg/m2 Dr. Cleo Gonzalez MD Work Phone: [facility] 02-20-2025 11:23-0400 Body temperature 96.7 [degF] Dr. Cleo Gonzalez MD Work Phone: [facility] 02-20-2025 11:23-0400 Body weight 121.[address] Cleo Gonzalez MD Work Phone: [facility] 02-20-2025 11:23-0400 Diastolic blood pressure 78 mm[Hg] Dr. Cleo Gonzalez MD Work Phone: [facility] 02-20-2025 11:23-0400 Heart rate 69 /min Dr. Cleo Gonzalez MD Work Phone: [facility] 02-20-2025 11:23-0400 Respiratory rate 16 /min Dr. Cleo Gonzalez MD Work Phone: [facility] 02-20-2025 11:23-0400 SaO2% (BldA) [Mass fraction] 97 % Dr. Cleo Gonzalez MD Work Phone: [facility] 02-20-2025 11:23-0400 Systolic blood pressure 132 mm[Hg] Dr. Cleo Gonzalez MD Work Phone: [facility] 11-25-2024 13:09-0400 Body mass index (BMI) [Ratio] 41.5 kg/m2 Dr. Cleo Gonzalez MD Work Phone: [facility] 11-25-2024 13:09-0400 Body weight 113.[address] Cleo Gonzalez MD Work Phone: [facility] 10-28-2024 15:49-0400 Body temperature 98.6 [degF] Dr. Cleo Gonzalez MD Work Phone: [facility] 10-28-2024 15:49-0400 Diastolic blood pressure 78 mm[Hg] Dr. Cleo Gonzalez MD Work Phone: [facility] 10-28-2024 15:49-0400 Heart rate 65 /min Dr. Cleo Gonzalez MD Work Phone: [facility] 10-28-2024 15:49-0400 Respiratory rate 16 /min Dr. Cleo Gonzalez MD Work Phone: [facility] 10-28-2024 15:49-0400 SaO2% (BldA) [Mass fraction] 96 % Dr. Cleo Gonzalez MD Work Phone: [facility] 10-28-2024 15:49-0400 Systolic blood pressure 130 mm[Hg] Dr. Cleo Gonzalez MD Work Phone: [facility] 10-13-2024 08:07-0500 Body height 165.[address] Cleo Gonzalez MD Work Phone: [facility] 10-13-2024 08:07-0500 Body mass index (BMI) [Ratio] 42.7 kg/m2 Dr. Cleo Gonzlaez MD Work Phone: [facility] 10-13-2024 08:07-0500 Body temperature 98.2 [degF] Dr. Cleo Gonzalez MD Work Phone: [facility] 10-13-2024 08:07-0500 Body weight 116.[address] Cleo Gonzalez MD Work Phone: [facility] 10-13-2024 08:07-0500 Diastolic blood pressure 72 mm[Hg] Dr. Cleo Gonzalez MD Work Phone: [facility] 10-13-2024 08:07-0500 Heart rate 78 /min Dr. Cleo Gonzalez MD Work Phone: [facility] 10-13-2024 08:07-0500 Respiratory rate 18 /min Dr. Cleo Gonzalez MD Work Phone: [facility] 10-13-2024 08:07-0500 SaO2% (BldA) [Mass fraction] 96 % Dr. Cleo Gonzalez MD Work Phone: [facility] 10-13-2024 08:07-0500 Systolic blood pressure 128 mm[Hg] Dr. Cleo Gonzalez MD Work Phone: [facility] 09-05-2024 13:09-0500 Body mass index (BMI) [Ratio] 43 kg/m2 Dr. Cleo Gonzalez MD Work Phone: [facility] 09-05-2024 13:09-0500 Body weight 117.[address] Cleo Gonzalez MD Work Phone: [facility] 09-01-2024 11:54-0500 Body mass index (BMI) [Ratio] 42.19 kg/m2 Matti Clutter PA-C Work Phone: 09-01-2024 11:54-0500 Body temperature 98.6 [degF] Matti Clutter PA-C Work Phone: 09-01-2024 11:54-0500 Body weight 115 kg Matti Clutter PA-C Work Phone: 09-01-2024 11:54-0500 Diastolic blood pressure 78 mm[Hg] Matti Clutter PA-C Work Phone: 09-01-2024 11:54-0500 Heart rate 67 /min Matti Clutter PA-C Work Phone: 09-01-2024 11:54-0500 Respiratory rate 20 /min Matti Clutter PA-C Work Phone: 09-01-2024 11:54-0500 SaO2% (BldA) [Mass fraction] 98 % Matti Clutter PA-C Work Phone: 09-01-2024 11:54-0500 Systolic blood pressure 130 mm[Hg] Matti Clutter PA-C Work Phone: 08-27-2024 13:16-0500 Body mass index (BMI) [Ratio] 42.9 kg/m2 Dr. Cleo Gonzalez MD Work Phone: [facility] 08-27-2024 13:16-0500 Body temperature 97.6 [degF] Dr. Cleo Gonzalez MD Work Phone: [facility] 08-27-2024 13:16-0500 Body weight 117.[address] Cleo Gonzalez MD Work Phone: [facility] 08-27-2024 13:16-0500 Diastolic blood pressure 78 mm[Hg] Dr. Cleo Gonzalez MD Work Phone: [facility] 08-27-2024 13:16-0500 Heart rate 62 /min Dr. Cleo Gonzalez MD Work Phone: [facility] 08-27-2024 13:16-0500 Respiratory rate 16 /min Dr. Cleo Gonzalez MD Work Phone: [facility] 08-27-2024 13:16-0500 SaO2% (BldA) [Mass fraction] 98 % Dr. Cleo Gonzalez MD Work Phone: [facility] 08-27-2024 13:16-0500 Systolic blood pressure 137 mm[Hg] Dr. Cleo Gonzalez MD Work Phone: [facility] 08-18-2024 13:30-0500 Diastolic blood pressure 68 mm[Hg] Dr. Cleo Gonzalez MD Work Phone: [facility] 08-18-2024 13:30-0500 Heart rate 63 /min Dr. Cleo Gonzalez MD Work Phone: [facility] 08-18-2024 13:30-0500 Systolic blood pressure 122 mm[Hg] Dr. Cleo Gonzalez MD Work Phone: [facility] 08-18-2024 13:30-0500 Respiratory rate 63 /min Dr. Cleo Gonzalez MD Work Phone: [facility] 08-18-2024 09:53-0500 Body mass index (BMI) [Ratio] 43.1 kg/m2 Dr. Cleo Gonzalez MD Work Phone: [facility] 08-18-2024 09:53-0500 Body temperature 97.7 [degF] Dr. Cleo Gonzalez MD Work Phone: [facility] 08-18-2024 09:53-0500 Body weight 117.[address] Cleo Gonzalez MD Work Phone: [facility] 08-18-2024 09:53-0500 SaO2% (BldA) [Mass fraction] 97 % Dr. Cleo Gonzalez MD Work Phone: [facility] 07-26-2024 09:19-0500 Body mass index (BMI) [Ratio] 43.22 kg/m2 Aisha Athy PA-C Work Phone: 07-26-2024 09:19-0500 Body temperature 98.1 [degF] Aisha Athy PA-C Work Phone: 07-26-2024 09:19-0500 Body weight 117.8 kg Aisha Athy PA-C Work Phone: 07-26-2024 09:19-0500 Diastolic blood pressure 76 mm[Hg] Aisha Athy PA-C Work Phone: 07-26-2024 09:19-0500 Heart rate 62 /min Aisha Athy PA-C Work Phone: 07-26-2024 09:19-0500 Respiratory rate 18 /min Aisha Athy PA-C Work Phone: 07-26-2024 09:19-0500 SaO2% (BldA) [Mass fraction] 97 % Aisha Athy PA-C Work Phone: 07-26-2024 09:19-0500 Systolic blood pressure 112 mm[Hg] Aisha Athy PA-C Work Phone: 05-15-2024 08:29-0400 Body mass index (BMI) [Ratio] 42.48 kg/m2 Krystin Goodwin APRN.[employer]ER Work Phone: 05-15-2024 08:29-0400 Body temperature 98.49 [degF] Krystin Goodwin APRN.[employer] CHECKER Work Phone: 05-15-2024 08:29-0400 Body weight 115.8 kg Krystin Goodwin APRN.[employer] CHECK[employer] Work Phone: 05-15-2024 08:29-0400 Diastolic blood pressure 78 mm[Hg] Krystin Goodwin APRN.[employer] CHECKER Work Phone: 05-15-2024 08:29-0400 Heart rate 85 /min Krystin Goodwin APRN.[employer] CHECK[employer] Work Phone: 05-15-2024 08:29-0400 Respiratory rate 20 /min Krystin Goodwin APRN.[employer] Work Phone: 05-15-2024 08:29-0400 SaO2% (BldA) [Mass fraction] 97 % Krystin Goodwin APRN.[employer] CHECKER Work Phone: 05-15-2024 08:29-0400 Systolic blood pressure 110 mm[Hg] Krystin Goodwin APRN.[employer] CHECKER Work Phone: 03-26-2024 14:57-0400 Body mass index (BMI) [Ratio] 43.36 kg/m2 Nuvia Bhakta CULTURAL CENTRE MANAGER.FRICKERTRON CHECKER Work Phone: 03-26-2024 14:57-0400 Body temperature 98.2 [degF] Nuvia Bhakta CULTURAL CENTRE MANAGER.FRICKERTRON CHECKER Work Phone: 03-26-2024 14:57-0400 Body weight 118.2 kg Nuvia Bhakta CULTURAL CENTRE MANAGER.FRICKERTRON CHECKER Work Phone: 03-26-2024 14:57-0400 Diastolic blood pressure 78 mm[Hg] Nuvia Bhakta CULTURAL CENTRE MANAGER.FRICKERTRON CHECKER Work Phone: 03-26-2024 14:57-0400 Heart rate 79 /min Nuvia Bhakta CULTURAL CENTRE MANAGER.FRICKERTRON CHECKER Work Phone: 03-26-2024 14:57-0400 Respiratory rate 18 /min Nuvia Bhakta CULTURAL CENTRE MANAGER.FRICKERTRON CHECKER Work Phone: 03-26-2024 14:57-0400 SaO2% (BldA) [Mass fraction] 96 % Nuvia Bhakta CULTURAL CENTRE MANAGER.FRICKERTRON CHECKER Work Phone: 03-26-2024 14:57-0400 Systolic blood pressure 110 mm[Hg] Nuvia Bhakta CULTURAL CENTRE MANAGER.FRICKERTRON CHECKER Work Phone: 03-07-2024 10:17-0400 Body mass index (BMI) [Ratio] 43.36 kg/m2 Freddy Lyons CULTURAL CENTRE MANAGER.FRICKERTRON CHECKER Work Phone: 03-07-2024 10:17-0400 Body temperature 98.91 [degF] Freddy Lyons CULTURAL CENTRE MANAGER.FRICKERTRON CHECKER Work Phone: 03-07-2024 10:17-0400 Body weight 118.2 kg Freddy Lyons CULTURAL CENTRE MANAGER.FRICKERTRON CHECKER Work Phone: 03-07-2024 10:17-0400 Diastolic blood pressure 82 mm[Hg] Freddy Lyons CULTURAL CENTRE MANAGER.FRICKERTRON CHECKER Work Phone: 03-07-2024 10:17-0400 Heart rate 75 /min Freddy Lyons CULTURAL CENTRE MANAGER.FRICKERTRON CHECKER Work Phone: 03-07-2024 10:17-0400 Respiratory rate 21 /min Freddy Lyons CULTURAL CENTRE MANAGER.FRICKERTRON CHECKER Work Phone: 03-07-2024 10:17-0400 SaO2% (BldA) [Mass fraction] 99 % Freddy Lyons CULTURAL CENTRE MANAGER.FRICKERTRON CHECKER Work Phone: 03-07-2024 10:17-0400 Systolic blood pressure 110 mm[Hg] Freddy Carlsonhilda CULTURAL CENTRE MANAGER.FRICKERTRON CHECKER Work Phone: 12-18-2023 19:08-0400 Body mass index (BMI) [Ratio] 42.56 kg/m2 Nuvia Bhakta CULTURAL CENTRE MANAGER.FRICKERTRON CHECKER Work Phone: 12-18-2023 19:08-0400 Body temperature 98.1 [degF] Nuvia Bhakta CULTURAL CENTRE MANAGER.FRICKERTRON CHECKER Work Phone: 12-18-2023 19:08-0400 Body weight 116 kg Nuvia Bhakta CULTURAL CENTRE MANAGER.FRICKERTRON CHECKER Work Phone: 12-18-2023 19:08-0400 Diastolic blood pressure 80 mm[Hg] Nuvia Bhakta CULTURAL CENTRE MANAGER.FRICKERTRON CHECKER Work Phone: 12-18-2023 19:08-0400 Heart rate 57 /min Nuvia Bhakta CULTURAL CENTRE MANAGER.FRICKERTRON CHECKER Work Phone: 12-18-2023 19:08-0400 Respiratory rate 18 /min Nuvia Bhakta CULTURAL CENTRE MANAGER.FRICKERTRON CHECKER Work Phone: 12-18-2023 19:08-0400 SaO2% (BldA) [Mass fraction] 99 % Nuvia Bhakta CULTURAL CENTRE MANAGER.FRICKERTRON CHECKER Work Phone: 12-18-2023 19:08-0400 Systolic blood pressure 121 mm[Hg] Nuvia Bhakta CULTURAL CENTRE MANAGER.FRICKERTRON CHECKER Work Phone: 11-17-2023 09:52-0400 Body height 165.[address] Cleo Gonzalez Work Phone: [facility] 11-17-2023 09:52-0400 Body mass index (BMI) [Ratio] 42.5 kg/m2 Dr. Cleo Gonzalez Work Phone: [facility] 11-17-2023 09:52-0400 Body temperature 97.5 [degF] Dr. Cleo Gonzalez Work Phone: [facility] 11-17-2023 09:52-0400 Body weight 116.[address] Cleo Gonzalez Work Phone: [facility] 11-17-2023 09:52-0400 Diastolic blood pressure 82 mm[Hg] Dr. Cleo Gonzalez Work Phone: [facility] 11-17-2023 09:52-0400 Heart rate 66 /min Dr. Cleo Gonzalez Work Phone: [facility] 11-17-2023 09:52-0400 Respiratory rate 14 /min Dr. Cleo Gonzalez Work Phone: [facility] 11-17-2023 09:52-0400 SaO2% (BldA) [Mass fraction] 97 % Dr. Cleo Gonzalez Work Phone: [facility] 11-17-2023 09:52-0400 Systolic blood pressure 122 mm[Hg] Dr. Cleo Gonzalez Work Phone: [facility] 10-16-2023 12:54-0500 Body temperature 98 [degF] Dr. Cleo Gonzalez Work Phone: [facility] 10-16-2023 12:54-0500 Diastolic blood pressure 74 mm[Hg] Dr. Cleo Gonzalez Work Phone: [facility] 10-16-2023 12:54-0500 Heart rate 72 /min Dr. Cleo Gonzalez Work Phone: [facility] 10-16-2023 12:54-0500 Respiratory rate 17 /min Dr. Cleo Gonzalez Work Phone: [facility] 10-16-2023 12:54-0500 SaO2% (BldA) [Mass fraction] 98 % Dr. Cleo Gonzalez Work Phone: [facility] 10-16-2023 12:54-0500 Systolic blood pressure 122 mm[Hg] Dr. Cleo Gonzalez Work Phone: [facility] 06-07-2023 08:10-0400 Body temperature 97.59 [degF] [facility] CULTURAL CENTRE MANAGER.FRICKERTRON CHECKER Work Phone: 06-07-2023 08:10-0400 Body weight 107.23 kg [facility] CULTURAL CENTRE MANAGER.FRICKERTRON CHECKER Work Phone: 06-07-2023 08:10-0400 Diastolic blood pressure 80 mm[Hg] [facility] CULTURAL CENTRE MANAGER.FRICKERTRON CHECKER Work Phone: 06-07-2023 08:10-0400 Heart rate 63 /min [facility] CULTURAL CENTRE MANAGER.FRICKERTRON CHECKER Work Phone: 06-07-2023 08:10-0400 Respiratory rate 18 /min [facility] CULTURAL CENTRE MANAGER.FRICKERTRON CHECKER Work Phone: 06-07-2023 08:10-0400 SaO2% (BldA) [Mass fraction] 99 % [facility] CULTURAL CENTRE MANAGER.FRICKERTRON CHECKER Work Phone: 06-07-2023 08:10-0400 Systolic blood pressure 122 mm[Hg] [facility] CULTURAL CENTRE MANAGER.FRICKERTRON CHECKER Work Phone: 11-07-2022 08:02-0400 Body temperature 97.6 [degF] Dr. Cleo Gonzalez Work Phone: [facility] 11-07-2022 08:02-0400 Diastolic blood pressure 78 mm[Hg] Dr. Cleo Gonzalez Work Phone: [facility] 11-07-2022 08:02-0400 Heart rate 70 /min Dr. Cleo Gonzalez Work Phone: [facility] 11-07-2022 08:02-0400 Respiratory rate 16 /min Dr. Cleo Gonzalez Work Phone: [facility] 11-07-2022 08:02-0400 SaO2% (BldA) [Mass fraction] 99 % Dr. Cleo Gonzalez Work Phone: [facility] 11-07-2022 08:02-0400 Systolic blood pressure 124 mm[Hg] Dr. Cleo Gonzalez Work Phone: [facility] 10-13-2022 15:23-0500 Body height 165.[address] Cleo Gonzalez Work Phone: [facility] 10-13-2022 15:23-0500 Body mass index (BMI) [Ratio] 36.6 kg/m2 Dr. Cleo Gonzalez Work Phone: [facility] 10-13-2022 15:23-0500 Body temperature 98.3 [degF] Dr. Cleo Gonzalez Work Phone: [facility] 10-13-2022 15:23-0500 Body weight 99.[address] Cleo Gonzalez Work Phone: [facility] 10-13-2022 15:23-0500 Diastolic blood pressure 90 mm[Hg] Dr. Cleo Gonzalez Work Phone: [facility] 10-13-2022 15:23-0500 Heart rate 64 /min Dr. Cleo Gonzalez Work Phone: [facility] 10-13-2022 15:23-0500 Respiratory rate 16 /min Dr. Cleo Gonzalez Work Phone: [facility] 10-13-2022 15:23-0500 SaO2% (BldA) [Mass fraction] 99 % Dr. Cleo Gonzalez Work Phone: [facility] 10-13-2022 15:23-0500 Systolic blood pressure 118 mm[Hg] Dr. Cleo Gonzalez Work Phone: [facility] 09-27-2022 09:18-0500 Body mass index (BMI) [Ratio] 35.2 kg/m2 Dr. Cleo Gonzalez Work Phone: [facility] 09-27-2022 09:18-0500 Body temperature 97.6 [degF] Dr. Cleo Gonzalez Work Phone: [facility] 09-27-2022 09:18-0500 Body weight 96.[address] Cleo Gonzalez Work Phone: [facility] 09-27-2022 09:18-0500 Diastolic blood pressure 80 mm[Hg] Dr. Cleo Gonzalez Work Phone: [facility] 09-27-2022 09:18-0500 Heart rate 74 /min Dr. Cleo Gonzalez Work Phone: [facility] 09-27-2022 09:18-0500 Respiratory rate 15 /min Dr. Cleo Gonzalez Work Phone: [facility] 09-27-2022 09:18-0500 SaO2% (BldA) [Mass fraction] 98 % Dr. Cleo Gonzalez Work Phone: [facility] 09-27-2022 09:18-0500 Systolic blood pressure 118 mm[Hg] Dr. Cleo Gonzalez Work Phone: [facility] 03-10-2022 13:28-0400 Body height 165.[address] Mayo Smith Work Phone: [facility] Work Phone: 03-10-2022 13:28-0400 Body mass index (BMI) [Ratio] 32.1 kg/m2 Dr. Mayo Smith Work Phone: [facility] Work Phone: 03-10-2022 13:28-0400 Body temperature 98.5 [degF] Dr. Mayo Smith Work Phone: [facility] Work Phone: 03-10-2022 13:28-0400 Body weight 87.[address] Mayo Smith Work Phone: [facility] Work Phone: 03-10-2022 13:28-0400 Diastolic blood pressure 72 mm[Hg] Dr. Mayo Smith Work Phone: [facility] Work Phone: 03-10-2022 13:28-0400 Heart rate 76 /min Dr. Mayo Smith Work Phone: [facility] Work Phone: 03-10-2022 13:28-0400 Respiratory rate 14 /min Dr. Mayo Smith Work Phone: [facility] Work Phone: 03-10-2022 13:28-0400 SaO2% (BldA) [Mass fraction] 98 % Dr. Mayo Smith Work Phone: [facility] Work Phone: 03-10-2022 13:28-0400 Systolic blood pressure 130 mm[Hg] Dr. Mayo Smith Work Phone: [facility] Work Phone: 02-25-2022 15:16-0400 Body temperature 98.8 [degF] Krystin Goodwin APRN.FRICKERTRON CHECKER Work Phone: 02-25-2022 15:16-0400 Body weight 86.18 kg Krystin Goodwin APRN.FRICKERTRON CHECKER Work Phone: 02-25-2022 15:16-0400 Diastolic blood pressure 70 mm[Hg] Krystin Goodwin APRN.FRICKERTRON CHECKER Work Phone: 02-25-2022 15:16-0400 Heart rate 67 /min Krystin Goodwin APRN.FRICKERTRON CHECKER Work Phone: 02-25-2022 15:16-0400 Respiratory rate 18 /min Krystin Goodwin APRN.FRICKERTRON CHECKER Work Phone: 02-25-2022 15:16-0400 SaO2% (BldA) [Mass fraction] 98 % Krystin Goodwin APRN.FRICKERTRON CHECKER Work Phone: 02-25-2022 15:16-0400 Systolic blood pressure 110 mm[Hg] Krystin Goodwin APRN.FRICKERTRON CHECKER Work Phone: Encounters Encounter Date Encounter Type Care Provider Facility Start: 03-01-2025 End: 03-01-[facility] Start: 02-22-2025 Encounter for genera l adult medical examination without abnormal findings Cleo [place] [facility] Start: 02-20-2025 End: 02-20-[address] Cleo Gonzalez MD -[facility] Work Phone: Start: 02-20-2025 End: 02-20-[address] Cleo Gonzalez MD Work Phone: -[facility] Start: 02-20-2025 End: 02-20-2025 ambulatory Cleo [place] Facility:[facility] Start: 11-25-2024 End: 11-25-2024 Patient encounter procedure Mery Calvo NP-C -[facility] Work Phone: Start: 11-25-2024 End: 11-25-2024 ambulatory Mery Calvo Facility:[facility] Start: 11-18-2024 ambulatory Mery Calvo Facility :[facility] Start: 11-04-2024 End: 11-04-2024 Patient encounter procedure Mery Calvo NP-C -[facility] Work Phone: Start: 11-04-2024 End: 11-04-2024 ambulatory Mery Calvo Facility:[facility] Start: 10-28-2024 End: 10-28-2024 Patient encounter procedure Sekou Santo [place] -[facility] Work Phone: Start: 10-28-2024 End: 10-28-2024 ambulatory Sekou MCKEON Facility:[facility] Start: 10-27-2024 End: 10-27-2024 Patient encounter procedure Mery COLEMAN -[facility] Work Phone: Start: 10-27-2024 End: 10-27-2024 ambulatory Cleo [place] Facility:[facility] Start: 10-19-2024 End: 10-19-[address] Rob Craft DO -[facility] Work Phone: Start: 10-19-2024 End: 10-19-2024 ambulatory Cleo Lisa Facility:[facility] Start: 10-13-2024 End: 10-13-[address] Cleo Gonzalez MD -[facility] Work Phone: Start: 10-13-2024 End: 10-13-[address] Cleo Gonzalez MD Work Phone: [facility] Work Phone: Start: 10-13-2024 End: 10-13-2024 ambulatory Cleosajan [place] Facility:[facility] Start: 09-05-2024 End: 09-05-[address] Rob Craft DO -[facility] Work Phone: Start: 09-05-2024 End: 09-05-2024 ambulatory Cleosajan [place] Facility:[facility] Start: 09-01-2024 End: 09-01-2024 Subsequent hospital visit by physician [facility] Work Phone: Radiology Comment on above: Foot sprain, left, i nitial encounter [S93.602A] Start: 09-01-2024 End: 09-01-2024 ambulatory CLEO G LISA Facility:[facility] Start: 09-01-2024 End: 09-01-2024 Office outpatient visit 25 minutes Matti Anderson PA-C Work Phone: [facility] Comment on above: Foot sprain, left, i nitial encounter (Primary Dx) Start: 08-27-2024 End: 08-27-2024 Emergency department patient visit Dr. Zackery Juárez DO -Emergency Department Work Phone: Start: 08-18-2024 End: 08-18-[address] Cleo Gonzalez MD -Laboratory, [place] Start: 08-18-2024 End: 08-18-[address] Cleo Gonzalez MD -[facility] Work Phone: Start: 08-18-2024 End: 08-18-2024 ambulatory Cleo Lisa Facility:[facility] Start: 08-18-2024 End: 08-18-2024 ambulatory Cleo [place] Facility:[facility] Start: 07-26-2024 End: 07-26-2024 ambulatory CLEO Aureliano CAMBY Facility:[facility] Start: 07-26-2024 End: 07-26-2024 Patient encounter procedure Aisha Carlson PA-C Work Phone: [facility] Comment on above: Urinary frequency (P rimary Dx); Dizziness Start: 05-15-2024 End: 05-15-2024 ambulatory CLEO Aureliano [place] Facility:[facility] Start: 05-15-2024 End: 05-15-2024 Patient encounter procedure Krystin Goodwin APRN.FRICKERTRON CHECKER Work Phone: [facility] Comment on above: Respiratory infectio n (Primary Dx) Start: 03-27-2024 Telephone encounter Xavier MCKEON Work Phone: [facility] Comment on above: Results Start: 03-26-2024 End: 03-26-2024 ambulatory CLEO Aureliano DOWL[place]LISA Facility:[facility] Start: 03-26-2024 End: 03-26-2024 Patient encounter procedure Nuvia Bhakta APRN.FRICKERTRON CHECKER Work Phone: [facility] Comment on above: URI, acute (Primary Dx); Exposure to COVID-19 virus Start: 03-07-2024 End: 03-07-2024 Subsequent hospital visit by physician [facility] Denise Work Phone: Radiology Comment on above: Injury of right elbo w, initial encounter [S59.901A] Start: 03-07-2024 End: 03-07-2024 ambulatory CLEO GONZALEZ Facility:[facility] Start: 03-07-2024 End: 03-07-2024 Office outpatient visit 15 minutes Freddy Lyons CULTURAL CENTRE MANAGER.FRICKERTRON CHECKER Work Phone: [facility] Comment on above: Injury of right elbo w, initial encounter (Primary Dx) Start: 12-18-2023 End: 12-18-2023 ambulatory CLEO GONZALEZ Facility:[facility] Start: 12-18-2023 End: 12-18-2023 Patient encounter procedure Nuvia Tee CULTURAL CENTRE MANAGER.FRICKERTRON CHECKER Work Phone: [facility] Comment on above: TMJ syndrome (Primar y Dx) Start: 11-17-2023 End: 11-22-2023 ambulatory CLEO GONZALEZ MD Facility: Start: 11-17-2023 End: 11-21-2023 Outreach Lab CLEO GONZALEZ MD [facility] Start: 11-17-2023 End: 11-17-[address] Cleo Gonzalez Work Phone: [facility] Work Phone: Start: 11-17-2023 End: 11-17-[address] Cleo Gonzaelz Work Phone: [facility] Internal Medicine Work Phone: Start: 10-16-2023 End: 10-16-[address] Cleo Gonzalez Work Phone: [facility] Work Phone: Start: 06-08-2023 Telephone encounter Sherrie Calabrese CULTURAL CENTRE MANAGER.FRICKERTRON CHECKER Work Phone: [facility] Comment on above: Results Start: 06-08-2023 End: 06-08-2023 Subsequent hospital visit by physician [facility] Work Phone: Radiology Comment on above: Acute cough [R05.1] Start: 06-07-2023 End: 06-07-2023 Office outpatient visit 25 minutes Freddy Lyons APRN.FRICKERTRON CHECKER Work Phone: [facility] Comment on above: Acute cough (Primary Dx); Sinobronchitis Start: 11-17-2022 End: 11-17-[address] Cleo Gonzalez Work Phone: [facility] Work Phone: Start: 11-17-2022 End: 11-17-[address] Cleo Gonzalez Work Phone: [facility] Start: 11-07-2022 End: 11-07-[address] Cleo Gonzalez Work Phone: [facility] Start: 10-13-2022 End: 10-13-[address] Cleo Gonzalez Work Phone: [facility] Internal Medicine Start: 09-27-2022 End: 09-27-[address] Cleo Gonzalez Work Phone: [facility] Start: 03-13-2022 ambulatory Maxwell Oh MD Work Phone: [facility] Comment on above: Urgent Start: 03-10-2022 End: 03-10-[address] Mayo Smith Work Phone: [facility] Internal Medicine Start: 02-25-2022 End: 02-25-2022 Patient encounter procedure Krystin Goodwin APRN.FRICKERTRON CHECKER Work Phone: [facility] Comment on above: Muscle pain (Primary Dx) Start: 02-07-2022 End: 02-07-2022 Patient encounter procedure Maxwell Oh MD Work Phone: [facility] Comment on above: Arthritis of knee (P rimary Dx) Start: 01-08-2022 Telephone encounter Maxwell velarde MD Work Phone: [facility] Comment on above: Orders Start: 12-25-2021 Telephone encounter Maxwell velarde MD Work Phone: [facility] Comment on above: Medication Problem Start: 10-26-2012 End: 08-05-2013 Patient requested procedure Nuvia Bhakta CULTURAL CENTRE MANAGER.FRICKERTRON CHECKER Work Phone: Procedures Date Procedure Procedure Detail Performing Clinician Start: 02-20-2025 Vitamin D, 25-hydrox y measurement Dr. Cleo Gonzalez MD Work Phone: Comment on above: Vitamin D StatusDefi ciency: <20 ng/mL (50nmol/L)Insufficiency: 20-30 ng/mL (50-75 nmol/L)Sufficiency: 30-100 ng/mL (75-250 nmol/L)Toxicity: >100 ng/mL (>250 nmol/L) Start: 09-05-2024 X-ray of foot, three or more views Dr. Cleo Gonzalez MD Work Phone: Start: 09-01-2024 Radex ankle complete minimum 3 views Matti Anderson PA-C Work Phone: Start: 08-27-2024 Plain x-ray of elbow Dr Abebe Gonzalez MD Work Phone: Start: 07-26-2024 Urnls dip stick/tabl et rgnt auto w/o microscopy Aisha R Athdarline PA-C Work Phone: Start: 03-07-2024 Radex elbow complete minimum 3 views Freddy Lyons APRN.FRICKERTRON CHECKER Work Phone: Start: 06-08-2023 Radiologic exam ches t 2 views Freddy Lyons CULTURAL CENTRE MANAGER.FRICKERTRON CHECKER Work Phone: Start: 11-17-2022 Screening mammography Luiz Gonzalez Work Phone: Start: 02-07-2022 Arthrocentesis aspir &/inj major jt/bursa w/o us Maxwell Oh MD Work Phone: Start: 03-26-2021 Mammography Maxwell king MD Work Phone: Start: 03-17-2016 Adult depression scr eening assessment Maxwell Oh MD Work Phone: Hysterectomy CLEO GONZALEZ MD Plan of Treatment Date Care Activity Detail Author Start: 08-27-2034 Urine microalbumin profile DTaP,Tdap,Td Vaccine (3 - Td or Tdap) Start: 03-01-2025 MG Breast - bilatera l Screening [facility] Start: 08-27-[address] [facility] Start: 04-17-2024 Covid-19 Vaccine () Covid-19 Vaccine () Start: 04-17-2024 Covid-19 Vaccine ( season) Covid-19 Vaccine () Start: 04-17-2024 Influenza vaccination [facility] Start: 03-26-2024 End: 04-09-2024 COVID & INFLUENZA A/B & RSV NAAT, ROUTINE [facility] Work Phone: Comment on above: Expected: 03/26/2024 , Expires: 04/09/2024 Start: 11-17-2023 Patient referral [facility] Work Phone: Start: 08-17-2023 Behavioral Health Screening Behavioral Health Screening Start: 06-08-2023 End: 07-06-2024 Radiologic exam chest 2 views XR CHEST 2V FRONTAL/LAT Radiology STAT Acute cough Expected: 06/08/2023, Expires: 07/06/2024 [facility] Work Phone: Comment on above: Expected: 06/08/2023 , Expires: 07/06/2024 Start: 04-17-2023 Covid-19 Vaccine ( season) Covid-19 Vaccine ( season) Start: 04-17-2023 Influenza vaccination Influenza Vacc ine (#1) Start: 03-30-2023 Urine microalbumin profile Start: 08-17-2022 Depression Assessment Depression Ass essment Start: 04-17-2022 Influenza vaccination C [facility] Start: 03-26-2022 Mammography Start: 03-26-2022 Screening for malign ant neoplasm of breast Mammogram Screening Start: 03-17-2017 Adult depression screening assessment DEPRESSION SCREENING Start: 1999 Hepatitis B Vaccine (1 of 3 - 19+ 3-dose series) Hepatitis B Vaccine (1 of 3 - 19+ 3-dose series) Start: 1998 Anxiety Screening Anxiety Screening Start: 1998 Depression Screening Depression Scre ening Start: 1998 HEPATITIS C SCREENING HEPATITIS C [facility] Start: 1998 Hepatitis C screening Hepatitis C [facility] Start: 1998 HIV SCREENING HIV SCREENING [facility] Start: 1998 HIV screening HIV Screening [facility] Start: 1980 Hepatitis B Vaccine (1 of 3 - 3-dose series) Hepatitis B Vaccine (1 of 3 - 3-dose series) Bacteria identified in Urine by Culture URINE CULTURE Microbiology Routine Urinary frequency 07/26/2024 9:34 AM EST [facility] Work Phone: MG Breast - bilatera l Screening [facility] MG Breast - bilatera l Screening [facility] Patient Education ED Contusion, [place] [facility] Work Phone: Patient referral [facility] Work Phone: [facility] Immunizations Immunization Date Immunization Notes Care Provider Fa cility 08-27-2024 tetanus toxoid, reduced diphtheria toxoid, and acellular pertussis vaccine, adsorbed Dr. Cleo Gonzalez MD Work Phone: [facility] 07-05-2021 Covid (Moderna); Translations: [Moderna COVID-19 Vaccine] Dr. Mayo Smith Work Phone: [facility] 11-09-2020 Covid (Moderna); Translations: [Moderna COVID-19 Vaccine] Dr. Mayo Smith Work Phone: [facility] 10-12-2020 Covid (Moderna); Translations: [Moderna COVID-19 Vaccine] Dr. Mayo Smith Work Phone: [facility] 05-26-2020 influenza, injectabl e, quadrivalent, contains preservative Maxwell Oh MD Work Phone: 05-26-2020 influenza, injectabl e, quadrivalent, preservative free Dr. Cleo Gonzalez Work Phone: [facility] 05-26-2020 influenza, seasonal, injectable Dr. Mayo Smith Work Phone: [facility] 05-26-2020 influenza virus vaccine, unspecified formulation Freddy Lyons APRN.CNP Work Phone: 06-21-2015 influenza, injectabl e, quadrivalent, contains preservative Maxwell Oh MD Work Phone: 06-21-2015 influenza, injectabl e, quadrivalent, preservative free Dr. Cleo Gonzalez Work Phone: [facility] 06-21-2015 influenza, seasonal, injectable Dr. Mayo Smith Work Phone: [facility] 06-21-2015 influenza, seasonal, injectable, preservative free Dr. Cleo Gonzalez MD Work Phone: [facility] [facility] 06-21-2015 Seasonal, quadrivalent, recombinant, injectable influenza vaccine, preservative free Dr. Cleo Gonzalez Work Phone: [facility] 06-15-2014 influenza, injectabl e, quadrivalent, preservative free Dr. Cleo Gonzalez Work Phone: [facility] 06-15-2014 influenza, seasonal, injectable Maxwell Oh MD Work Phone: 05-17-2014 influenza, injectabl e, quadrivalent, preservative free Dr. Cleo Gonzalez Work Phone: [facility] 05-17-2014 influenza, seasonal, injectable Dr. Mayo Smith Work Phone: [facility] 05-26-2013 influenza virus vaccine, unspecified formulation Maxwell Oh MD Work Phone: 03-30-2013 tetanus toxoid, reduced diphtheria toxoid, and acellular pertussis vaccine, adsorbed Maxwell Oh MD Work Phone: Work Phone: 06-27-2010 influenza virus vaccine, unspecified formulation Maxwell Oh MD Work Phone: 05-19-2009 influenza virus vaccine, live, attenuated, for intranasal use Maxwell Oh MD Work Phone: Work Phone: Payers Date Payer Category Payer Self-pay 2017 Unknown [employer] PPO OOS [id number] 2017-Present [phone] [address] [place] [address] PPO [id number] 2017 Unknown [employer] PPO OOS [id number] 2017-Present [phone] [address] [place] [address] PPO [id number] 2008 Unknown [id number] Unknown [id number] Unknown [id number] 2.16.840.1.376460.3.579.2.462 Unknown [id number] 2.16.840.1.437464.3.579.2.462 Unknown [id number] 2.16.840.1.811542.3.579.2.462 Unknown [id number] 2.16.840.1.833940.3.579.2.462 Unknown [id number] 2.16.840.1.630174.3.579.2.462 Unknown [id number] 2.16.840.1.143090.3.579.2.462 Unknown [id number] 2.16.840.1.145690.3.579.2.462 Unknown [id number] 2.16.840.1.036756.3.579.2.462 Unknown [id number] 2.16.840.1.248029.3.579.2.462 Unknown [id number] 2.16.840.1.145835.3.579.2.462 Unknown [id number] 2.16.840.1.098225.3.579.2.462 Unknown [id number] 2.16.840.1.136588.3.579.2.462 Unknown [id number] 2.16.840.1.765406.3.579.2.462 Unknown [id number] 2.16.840.1.271003.3.579.2.462 Unknown [id number] 2.16.840.1.568043.3.579.2.462 Unknown [id number] 2.16.840.1.295546.3.579.2.462 Social History Date Type Detail Facility Start: 06-07-2023 End: 02-20-2025 Tobacco smoking status [facility] Never smoked tobacco Start: 11-22-2021 End: 09-01-2024 Alcohol intake Current non-drinker of alcohol (finding) Start: 1980 Sex Assigned At Female [facility] Start: 11-16-2021 End: 02-25-2022 Exposure to SARS-CoV-2 (event) Not sure Start: 03-10-2022 End: 11-17-2023 Tobacco smoking status [facility] Unknown if ever smoked [facility] Start: 06-07-2023 Tobacco use and exposure Smokeless tobacco non-user Start: 07-25-2020 End: 06-07-2023 History of Social function Start: 07-25-2020 End: 06-07-2023 Tobacco use panel National Score (1-10 0), lower number is lower risk Not on file Start: 11-21-2021 Gender identity Identifies as female gender (finding) Start: 11-21-2021 Sexual orientation Heterosexual (fin ding) Tobacco smoking status Ex-smoker (finding ) [facility] Sex Assigned At Sex [facility] Start: 10-27-2024 Sex Female (finding) [facility] Clinical Notes 12-08-2012 to 02-20-2025 Note Date & Type Note Facility 02-20-2025 Progress note Note Date/Time February 20, 2025 12:47pm [facility] [address] [place] [address] [place] [address] OFFICE VISIT Date of Service: 02/20/25 MR#: [id number] Acct: [id number] Name: MARTHA WARD Rep #: [id number] : 1980 Provider: Dr. Gokul Gonzalez MD Age/Sex: 44/F Location: [facility] Status: Signed Intake Vital Signs 11/25/24 13:09 02/20/25 11:23 Height 5 ft 5 in 5 ft 5 in Weight: 268 lb BMI 44.6 BP 132/78 H Blood Pressure Location Rt brachial Position Sitting Respiration 16 Pulse 69 Pulse Source Monitor Temp 96.7 F L Temp Source Temporal Pulse Oximetry (%) 97 Oxygen Delivery Method room air Intake Visit Reasons: PHYSICAL FOR WORK Chief Complaint: physical for work Injection Molder Required: No Accompanied by: Self Is patient in pain?: No Allergies amoxicillin Allergy (Verified 02/20/25 11:22) Rash Sulfa (Sulfonamide Antibiotics) Allergy (Verified 02/20/25 11:22) Rash Medications ?Medication ?Instructions ?Recorded ?Confirmed ?Type escitalopram oxalate 10 mg tablet 10 mg PO QDAY #90 ta bs 10/13/24 02/20/25 Rx PFSH Medical History Acute bacterial conjunctivitis IBS (irritable bowel syndrome) Arthritis Surgical History History of removal of ovarian cyst H/O tubal ligation History of hysterectomy Family History Grandmother Diabetes Grandfather Parkinson disease Mother Skin cancer Bleeding disorder factor 5 Sister Autoimmune disease sjogren's Aunt Autoimmune disease Social History (Updated 02/20/25 @ 11:[address] Cleo Gonzalez MD) household members: spouse and children current occupational status: employed current occupation: Works at [employer] Smoking Status: Never smoker Electronic Cigarette Use: not used alcohol intake: current alcohol intake frequency: a few times a week Alcohol type: wine details: 5 oz wine substance use type: does not use what type of physical activity do you participate in: walking frequency: daily do you feel safe at home: Yes Questionnaire PQH-9 BMS Over the last 2 weeks, how often have you been bothered by any of the following problems? 1. Little interest or pleasure in doing things: not at all 2. Feeling down, depressed, or hopeless: not at all 3. Trouble falling or staying asleep, or sleeping too much: several days 4. Feeling tired or having little energy: nearly every day 5. Poor appetite or overeating: not at all 6. Feeling bad about yourself - or that you are a failure or have let yourself and your family down: not at all 7. Trouble concentrating on things, such as reading the newspaper or watching television: not at all 8. Moving or speaking so slowly that other people could have noticed? - Or the opposite - being so fidgety or restless that you have been moving around a lot more than usual: not at all 9. Thoughts that you would be better off or of hurting yourself in some way: not at all Total score: 4 If you checked off any problems, how difficult have these problems made it for you to do your work, take care of things at home, or get along with other people?: not difficult at all Source: Developed by Drs. Eleazar Rojas, Susan Enciso, Jasen York and colleagues, with an educational otf from [employer]. MILLY-7 BMS MILLY-7 Feeling nervous, anxious, or on edge: 0 = Not at all Not being able to stop or control worryin = Not at all Worrying too much about different things: 1 = Several days Trouble relaxin = Not at all Being so restless that it is hard to sit still: 0 = Not at all Becoming easily annoyed or irritable: 1 = Several days Feeling afraid as if something awful might happen: 0 = Not at all Total MILLY-7 score (0-4 normal; 5-9 mild; 10-14 moderate; 15-21 severe): 2 Source: Developed by Drs. Eleazar Rojas, Susan Enciso, Jasen York and colleagues, with an educational otf from [employer]. HPI HPI Chief Complaint: physical for work Details: MARTHA WARD, is a 44 F who presents to the office today for a well visit. She is up to date on her routine blood work and is due for a mammogram.? She isn't due for any immunizations.? She doesn't smoke and does need refills. She is eating healthy. She hasn't been as active recently with the colder weather. She reports her anxiety has been doing better. She feels the lexapro is helpingand she denies any problems with it. She denies any feelings of depression nor any thoughts of suicide. She reports her weight fluctuates. She is still doing weight watchers and walking at least a mile per day. Medications reviewed: Yes Martha likes to exercises by walking. They watch their diet for sodium, low fat, and low cholesterol most of the time. List of current specialists seen: None End of life planning discussed including patient's advanced directive wishes: Discussed. I am willing to follow [place]'s advanced directives PHQ-2/Depression screen They in the past two weeks denies having felt down, depressed, hopeless or with little interest or pleasure in doing things. Hearing evaluation: Normal ROS Const Constitutional: Positive for fatigue, snoring and weight change (11 pound weightgain); No fever(s), frequent falls, headache(s) or weakness Eyes Eyes: No blurry vision, change in vision or visual disturbances ENT ENT: No abnormal hearing, hearing loss, nasal congestion, headache(s) or sore throat Resp Respiratory: Positive for snoring; No cough or shortness of breath Cardio Cardiology: No chest pain at rest, chest pain with exertion, shortness of breath, lightheadedness, palpitations or other (no leg swelling) Gastro GI: No abdominal pain, change in bowel habits, constipation, diarrhea, nausea/dyspepsia or vomiting Genitourinary-Female: Positive for absent period; No difficulty urinating, burning urination or painful urination Musc Musculoskeletal: No numbness or tingling Skin Skin: No rash Neuro Neurology: No abnormal hearing, dizziness, weakness, frequent falls, headache(s), loss of vision, numbness, tingling, visual disturbances or fainting Psych Psychiatric: No anxiety, No depression, No Thoughts of harming yourself/Others and No suicidal ideation Endo Endocrine: Positive for fatigue and weight change (11 pound weight gain) Exam Const General: cooperative, healthy appearing, no acute distress, well developed, not diaphoretic and not ill appearing Nutritional Appearance: well nourished Orientation: alert and oriented x3 Limitations: mental status not altered [facility] Head: normal to inspection, normocephalic and atraumatic Ears: hearing grossly normal bilaterally and TM's normal bilaterally Face and sinus: normal facial exam Mouth: oral mucosae normal and moist mucous membranes Teeth and gingiva: dentition normal Throat: posterior oropharynx normal and uvula midline Eyes Conjunctivae: conjunctivae normal Sclera: sclerae normal Pupils: PERRL EOM: EOM intact bilaterally Neck Neck: no lymphadenopathy Thyroid: thyroid normal Lymphatic: no lymphadenopathy noted Chest Chest palpation & inspection: normal inspection of the chest Resp Effort & Inspection: normal respiratory effort, able to speak in complete sentences, no audible wheezes and no cough Auscultation: Bilateral: Clear to Auscultation Cardio Rate: regular rate Rhythm: regular rhythm Heart Sounds: S1 normal, S2 normal and no murmurs Pulses: radial pulses present bilaterally 2+ GI Inspection: non-distended Auscultation: normal bowel sounds Palpation: soft, no hepatosplenomegaly and nontender Skin General: no rashes or lesions noted and dry skin Wounds: no wounds Neuro General: patient alert, patient oriented x3, gait normal, moves all extremities,CN's II-XI intact bilaterally, deep tendon reflexes 2+ bilaterally and not confused Cranial Nerves: CN's II-XI intact bilaterally, PERRL, accommodation normal, EOM intact bilaterally, no nystagmus, facial strength normal, tongue midline, hearing normal, able to rotate head bilaterally and able to elevate shoulders bilaterally Cognition: normal cognition Speech: speech normal Gait: normal gait Motor: strength 5/5 throughout and no pronator drift Sensory Exam: no sensory deficits noted Coordination: [id number]-[id number] test normal, vsvd-bb-qbbd test normal, Romberg testnormal and rapid alternating movement UE normal Extrem General: normal to inspection and no edema Psych Appearance: grossly normal Mental Status: mental status grossly normal Affect: normal affect Attitude: cooperative Coding Level of Care Code Off vis,est,prev 40-64yrs Diagnoses Annual physical exam Z00.00 Anxiety F41.9 Hot flashes R23.2 Chronic fatigue R53.82 Fatigue type: chronic, unspecified Morbid obesity with BMI of 40.0-44.9, adult E66.01; Z68.41 Encounter for screening mammogram for malignant neoplasm of breast Z12.31 Breast cancer screening modality: mammogram Additional Codes PHQ-9 (09521) MILLY-7 (46251) Time Spent (min) 39 Assessment and Plan Assessment and Plan (1) Annual physical exam: Plan: The patient is here for a well visit. Vitals and exam are fairly unremarkable. Discussed diet and exercise. Labs ordered. Discussed screening and immunizations. She scored 4 on her PHQ today. Work form completed and providedback to her. (2) Anxiety: Plan: The patient reports she has noticed some improvement with the anxiety symptoms. Will continue current management and monitor. She denies any feelings of depression nor any thoughts of suicide. She scored 4 on her PHQ and 2 on her MILLY today. (3) Hot flashes: Plan: Patient continues to have ongoing symptoms of hot flashes, and fatigue. Past work up has not found any significant findings. Symptoms could still suggest bettie-menopause. She has not yet scheduled with her OBGYN and has concerns aboutHRT options. Will continue to monitor. (4) Fatigue: Qualifiers: Fatigue type: chronic, unspecified Qualified Code(s): R53.82 - Chronic fatigue, unspecified Plan: As above. The patient continues to complain of fatigue, but feels it has been worse just recently. Exam is fairly unremarkable. Her most recent labs have not shown any significant findings. Since she feels her symptoms are recently worse, will get a few repeat labs to rule out a new etiology. She is also at risk for sleep apnea, so if her symptoms persist or worsen, we can consider a sleep study. Patient understands that this still may be hormonal as above. STOP-BANG Assessment: 1. Do you snore? yes 2. Are you frequently tired during the day? yes 3. Have you been observed gasping or choking while asleep? no 4. Do you have high blood pressure? no 5. BMI - greater than 35kg/m2? yes 6. Age - over 50 years old? no 7. Neck Circumference - greater than 37 cm for females or 40 cm for males? no 8. Gender - male? yes Total STOP-BANG score = 3 which indicates increased risk for obstructive sleep apnea (yes to 3 or more questions = high risk of sleep apnea). (5) Morbid obesity with BMI of 40.0-44.9, adult: Plan: Weight is up 11 pounds. Discussed diet and exercise. Her lexapo may be contributing to the recent weight gain. Will monitor closely. If she continuesto gain weight, will consider an alternative medication for her mental health. Discussed a GLP-1 inhibitor to help with her weight. She will think about it. Will continue to monitor progress. (6) Screening for breast cancer: Qualifiers: Breast cancer screening modality: mammogram Qualified Code(s): Z12.31 -Encounter for screening mammogram for malignant neoplasm of breast Plan: Mammogram ordered. The patient is here for a well visit. Plan as above. Medications reviewed withthe patient. Routine follow up scheduled. The patient was instructed to call with any concerns or questions before then and they were in agreement. I spent a total of 39 minutes on the date of the service which included preparing to see the patient, hazp-gi-oqci patient care, completing clinical documentation, obtaining and/or reviewing separately obtained history. This excludes separately reportable services. Orders: Orders SCRN MAMM (CAD)W/AQUILINO BILAT Today Z12.39 - Encounter for other screening for malignant neoplasm of breast CBC W/Diff, Automated Today R53.83 - Other fatigue, Z00.00 - Encounter for general adult medical examination without abnormal findings Comprehensive Metabolic Profil Today Z00.00 - Encounter for general adult medical examination without abnormal findings Vitamin D,25 Hydroxy Today R53.83 - Other fatigue Vitamin B12 Today R53.83 - Other fatigue Thyroid Stim Hormone (TSH) Today R53.83 - Other fatigue Plan Details Follow Up: 4-6 months 02/20/25 1247 <Electronically signed by Cleo gregorio MD> Date _ Cleo Gonzalez MD Cosigner Signature: Date (if applicable) CC: ~ [facility] Work Phone: 1([phone] 399-599807-07-2025 [facility] [address] [place] [id number] OFFICE VISIT Date of Service: 02/20/25 MR#: [id number] Acct: [id number] Name: MARTHA WARD Rep #: [id number] : 1980 Provider: Dr. Gokul Gonzalez MD Age/Sex: 44/F Location: [facility] Status: Signed Intake Vital Signs 11/25/24 13:09 02/20/25 11:23 Height 5 ft 5 in 5 ft 5 in Weight: 268 lb BMI 44.6 BP 132/78 H Blood Pressure Location Rt brachial Position Sitting Respiration 16 Pulse 69 Pulse Source Monitor Temp 96.7 F L Temp Source Temporal Pulse Oximetry (%) 97 Oxygen Delivery Method room air Intake Visit Reasons: PHYSICAL FOR WORK Chief Complaint: physical for work Injection Molder Required: No Accompanied by: Self Is patient in pain?: No Allergies amoxicillin Allergy (Verified 02/20/25 11:22) Rash Sulfa (Sulfonamide Antibiotics) Allergy (Verified 02/20/25 11:22) Rash Medications ?Medication ?Instructions ?Recorded ?Confirmed ?Type escitalopram oxalate 10 mg tablet 10 mg PO QDAY #90 ta bs 10/13/24 02/20/25 Rx PFSH Medical History Acute bacterial conjunctivitis IBS (irritable bowel syndrome) Arthritis Surgical History History of removal of ovarian cyst H/O tubal ligation History of hysterectomy Family History Grandmother Diabetes Grandfather Parkinson disease Mother Skin cancer Bleeding disorder factor 5 Sister Autoimmune disease sjogren's Aunt Autoimmune disease Social History (Updated 02/20/25 @ 11:[address] Cleo Gonzalez MD) household members: spouse and children current occupational status: employed current occupation: Works at [employer] Smoking Status: Never smoker Electronic Cigarette Use: not used alcohol intake: current alcohol intake frequency: a few times a week Alcohol type: wine details: 5 oz wine substance use type: does not use what type of physical activity do you participate in: walking frequency: daily do you feel safe at home: Yes Questionnaire PQH-9 BMS Over the last 2 weeks, how often have you been bothered by any of the following problems? 1. Little interest or pleasure in doing things: not at all 2. Feeling down, depressed, or hopeless: not at all 3. Trouble falling or staying asleep, or sleeping too much: several days 4. Feeling tired or having little energy: nearly every day 5. Poor appetite or overeating: not at all 6. Feeling bad about yourself - or that you are a failure or have let yourself and your family down: not at all 7. Trouble concentrating on things, such as reading the newspaper or watching television: not at all 8. Moving or speaking so slowly that other people could have noticed? - Or the opposite - being so fidgety or restless that you have been moving around a lot more than usual: not at all 9. Thoughts that you would be better off or of hurting yourself in some way: not at all Total score: 4 If you checked off any problems, how difficult have these problems made it for you to do your work,take care of things at home, or get along with other people?: not difficult at all Source: Developed by Drs. Eleazar Rojas, Jasen Brady and colleagues, withan educational otf from [employer]. MILLY-7 BMS MILLY-7 Feeling nervous, anxious, or on edge: 0 = Not at all Not being able to stop or control worryin = Not at all Worrying too much about different things: 1 = Several days Trouble relaxin = Not at all Being so restless that it is hard to sit still: 0 = Not at all Becoming easily annoyed or irritable: 1 = Several days Feeling afraid as if something awful might happen: 0 = Not at all Total MILLY-7 score (0-4 normal; 5-9 mild; 10-14 moderate; 15-21 severe): 2 Source: Developed by Drs. Eleazar Rojas, Jasen Brady and colleagues, withan educational otf from [employer]. HPI HPI Chief Complaint: physical for work Details: MARTHA WARD, is a 44 F who presents to the office today for a well visit. She is up to date on herroutine blood work and is due for a mammogram.? She isn't due for any immunizations.? She doesn't smoke and does need refills. She is eating healthy. She hasn't been as active recently with the colder weather. She reports her anxiety has been doing better. She feels the lexapro is helpingand she denies any problems with it. She denies any feelings of depression nor any thoughts of suicide. She reports her weight fluctuates. She is still doing weight watchers and walking at least a mile per day. Medications reviewed: Yes Martha likes to exercises by walking. They watch their diet for sodium, low fat, and low cholesterol most of the time. List of current specialists seen: None End of life planning discussed including patient's advanced directive wishes: Discussed. I am willing to follow Martha's advanced directives PHQ-2/Depression screen They in the past two weeks denies having felt down, depressed, hopeless or with little interest or pleasure in doing things. Hearing evaluation: Normal ROS Const Constitutional: Positive for fatigue, snoring and weight change (11 pound weightgain); No fever(s), frequent falls, headache(s) or weakness Eyes Eyes: No blurry vision, change in vision or visual disturbances ENT ENT: No abnormal hearing, hearing loss, nasal congestion, headache(s) or sore throat Resp Respiratory: Positive for snoring; No cough or shortness of breath Cardio Cardiology: No chest pain at rest, chest pain with exertion, shortness of breath, lightheadedness, palpitations or other (no leg swelling) Gastro GI: No abdominal pain, change in bowel habits, constipation, diarrhea, nausea/dyspepsia or vomiting Genitourinary-Female: Positive for absent period; No difficulty urinating, burning urination or painful urination Musc Musculoskeletal: No numbness or tingling Skin Skin: No rash Neuro Neurology: No abnormal hearing, dizziness, weakness, frequent falls, headache(s), loss of vision, numbness, tingling, visual disturbances or fainting Psych Psychiatric: No anxiety, No depression, No Thoughts of harming yourself/Others and No suicidal ideation Endo Endocrine: Positive for fatigue and weight change (11 pound weight gain) Exam Const General: cooperative, healthy appearing, no acute distress, well developed, not diaphoretic and notill appearing Nutritional Appearance: well nourished Orientation: alert and oriented x3 Limitations: mental status not altered [facility] Head: normal to inspection, normocephalic and atraumatic Ears: hearing grossly normal bilaterally and TM's normal bilaterally Face and sinus: normal facial exam Mouth: oral mucosae normal and moist mucous membranes Teeth and gingiva: dentition normal Throat: posterior oropharynx normal and uvula midline Eyes Conjunctivae: conjunctivae normal Sclera: sclerae normal Pupils: PERRL EOM: EOM intact bilaterally Neck Neck: no lymphadenopathy Thyroid: thyroid normal Lymphatic: no lymphadenopathy noted Chest Chest palpation & inspection: normal inspection of the chest Resp Effort & Inspection: normal respiratory effort, able to speak in complete sentences, no audiblewheezes and no cough Auscultation: Bilateral: Clear to Auscultation Cardio Rate: regular rate Rhythm: regular rhythm Heart Sounds: S1 normal, S2 normal and no murmurs Pulses: radial pulses present bilaterally 2+ GI Inspection: non-distended Auscultation: normal bowel sounds Palpation: soft, no hepatosplenomegaly and nontender Skin General: no rashes or lesions noted and dry skin Wounds: no wounds Neuro General: patient alert, patient oriented x3, gait normal, moves all extremities,CN's II-XI intact bilaterally, deep tendon reflexes 2+ bilaterally and not confused Cranial Nerves: CN's II-XI intact bilaterally, PERRL, accommodation normal, EOM intact bilaterally,no nystagmus, facial strength normal, tongue midline, hearing normal, able to rotate head bilaterally and able to elevate shoulders bilaterally Cognition: normal cognition Speech: speech normal Gait: normal gait Motor: strength 5/5 throughout and no pronator drift Sensory Exam: no sensory deficits noted Coordination: sqqeik-go-flbu test normal, niqn-fo-iyau test normal, Romberg testnormal and rapid alternating movement UE normal Extrem General: normal to inspection and no edema Psych Appearance: grossly normal Mental Status: mental status grossly normal Affect: normal affect Attitude: cooperative Coding Level of Care Code Off vis,est,prev 40-64yrs Diagnoses Annual physical exam Z00.00 Anxiety F41.9 Hot flashes R23.2 Chronic fatigue R53.82 Fatigue type: chronic, unspecified Morbid obesity with BMI of 40.0-44.9, adult E66.01; Z68.41 Encounter for screening mammogram for malignant neoplasm of breast Z12.31 Breast cancer screening modality: mammogram Additional Codes PHQ-9 (77447) MILLY-7 (51178) Time Spent (min) 39 Assessment and Plan Assessment and Plan (1) Annual physical exam: Plan: The patient is here for a well visit. Vitals and exam are fairly unremarkable. Discussed diet and exercise. Labs ordered. Discussed screening and immunizations. She scored 4 on her PHQ today. Work form completed and providedback to her. (2) Anxiety: Plan: The patient reports she has noticed some improvement with the anxiety symptoms. Will continue current management and monitor. She denies any feelings of depression nor any thoughts of suicide. She scored 4 on her PHQ and 2 on her MILLY today. (3) Hot flashes: Plan: Patient continues to have ongoing symptoms of hot flashes, and fatigue. Past work up has not found any significant findings. Symptoms could still suggest bettie-menopause. She has not yet scheduled with her OBGYN and has concerns aboutHRT options. Will continue to monitor. (4) Fatigue: Qualifiers: Fatigue type: chronic, unspecified Qualified Code(s): R53.82 - Chronic fatigue, unspecified Plan: As above. The patient continues to complain of fatigue, but feels it has been worse just recently. Exam is fairly unremarkable. Her most recent labs have not shown any significant findings. Since shefeels her symptoms are recently worse, will get a few repeat labs to rule out a new etiology. She is also at risk for sleep apnea, so if her symptoms persist or worsen, we can consider a sleep study.Patient understands that this still may be hormonal as above. STOP-BANG Assessment: 1. Do you snore? yes 2. Are you frequently tired during the day? yes 3. Have you been observed gasping or choking while asleep? no 4. Do you have high blood pressure? no 5. BMI - greater than 35kg/m2? yes 6. Age - over 50 years old? no 7. Neck Circumference - greater than 37 cm for females or 40 cm for males? no 8. Gender - male? yes Total STOP-BANG score = 3 which indicates increased risk for obstructive sleep apnea (yes to 3 or more questions = high risk of sleep apnea). (5) Morbid obesity with BMI of 40.0-44.9, adult: Plan: Weight is up 11 pounds. Discussed diet and exercise. Her lexapo may be contributing to the recent weight gain. Will monitor closely. If she continuesto gain weight, will consider an alternative medication for her mental health. Discussed a GLP-1 inhibitor to help with her weight. She will think about it. Will continue to monitor progress. (6) Screening for breast cancer: Qualifiers: Breast cancer screening modality: mammogram Qualified Code(s): Z12.31 -Encounter for screening mammogram for malignant neoplasm of breast Plan: Mammogram ordered. The patient is here for a well visit. Plan as above. Medications reviewed withthe patient. Routine follow up scheduled. The patient was instructed to call with any concerns or questions before then and they were in agreement. I spent a total of 39 minutes on the date of the service which included preparing to see the patient, [id number] patient care, completing clinical documentation, obtaining and/or reviewing separately obtained history. This excludes separately reportable services. Orders: Orders SCRN MAMM (CAD)W/AQUILINO BILAT Today Z12.39 - Encounter for other screening for malignant neoplasm of breast CBC W/Diff, Automated Today R53.83 - Other fatigue, Z00.00 - Encounter for general adult medical examination without abnormal findings Comprehensive Metabolic Profil Today Z00.00 - Encounter for general adult medical examination without abnormal findings Vitamin D,25 Hydroxy Today R53.83 - Other fatigue Vitamin B12 Today R53.83 - Other fatigue Thyroid Stim Hormone (TSH) Today R53.83 - Other fatigue Plan Details Follow Up: 4-6 months 02/20/25 [age] y > Date _ Cleo Gonzalez MD Cosigner Signature: Date (if applicable) CC: ~ [facility]03-14-2025 Evaluation note* Diagnosis Onset Date Resolution Status Admit Date Acute sinusitis resolved October 3:45pm Right knee DJD acute October 9:37am Left knee DJD acute November 25, 2024 12:58pm Fatigue noneactive February 20, 2025 11:16am Hot flashes noneactive February 20 11:16am Anxiety noneactive February 20, 2025 11:16am Annual physical exam noneactive February 20, 2025 11:16am Morbid obesity with BMI of 40.0-44.9, adult noneactive February 20, 2025 11:16am Screening for breast cancer noneacti ve February 20, 2025 11:16am [facility] Work Phone: 1(489) 718-632201-16-2025 History of Present illness Narrative* Chinyere Nobles, RT(R) - 09/01/2024 12:20 PM EST Radiology Service Progress Note PATIENT NAME: Martha Ward DATE OF SERVICE: September 01, 2024 TIME: 12:05 PM PATIENT IDENTITY VERIFICATION COMPLETED USING TWO (2) IDENTIFIERS: Name and Date of confirmedby patient verbally. FALL SCREENING: Has the patient had 2 falls in the last year or 1 fall with injury or currently using an Ambulatory Assistive Device (Walker, Cane, Wheelchair, Crutches, etc.)? No PATIENT GENDER DATA: Assigned female at . status: : No status:NO. PATIENT RELEVANT IMPLANT DATA REVIEWED: Not Applicable PATIENT PRESENTS WITH AN IMPLANTABLE OR ATTACHED OFFSHORING MANAGER: No RADIOLOGY DEPARTMENT: General X-ray: Exam(s) Completed: Lower Extremity X- Ray(s): Ankle, Left and Foot, Left PERIPHERAL IV DATA: Not applicable SIGNED BY: WILLIAM Hurd) September 01, 2024 12:17 PM documented in this encounter01-16-2025 NoteHNO ID: [id number] Author: CHINYERE NOBLES RT (R) Service: Radiology Author Type: Technologist Type: Progress Notes Filed: 09/01/2024 12:18 Note Text: Radiology Service Progress Note PATIENT NAME: Martha Ward DATE OF SERVICE: September 01, 2024 TIME: 12:05 PM PATIENT IDENTITY VERIFICATION COMPLETED USING TWO (2) IDENTIFIERS: Name and Date of confirmed by patient verbally. FALL SCREENING: Has the patient had 2 falls in the last year or 1 fall with injury or currently using an Ambulatory Assistive Device (Walker, Cane, Wheelchair, Crutches, etc.)? No PATIENT GENDER DATA: Assigned female at . status: : No status: NO. PATIENT RELEVANT IMPLANT DATA REVIEWED: Not Applicable PATIENT PRESENTS WITH AN IMPLANTABLE OR ATTACHED OFFSHORING MANAGER: No RADIOLOGY DEPARTMENT: General X-ray: Exam(s) Completed: Lower Extremity X-Ray(s): Ankle, Left and Foot, Left PERIPHERAL IV DATA: Not applicable SIGNED BY: WILLIAM Hurd) September 01, 2024 12:17 [facility]01-16-2025 NoteHNO ID: [id number] Author: MATTI ANDERSON PA-C Service: ? Author Type: Physician Parakeet Raiser Type: Progress Notes Filed: 09/01/2024 12:39 Note Text: This note was created using [employer] Business Plan. Subjective Martha Ward is a 44 year old female. Is a 44-year-old female who complains of pain and swelling to her left foot and ankle secondary to fall injury that she sustained approximately 2 hours prior to arrival today. Patient reports that she was descending steps outside her home when she slipped and twisted her left foot and ankle immediately. Patient also states that she bent her left foot backwards. Patient reports no paresthesia or paralysis and is able to bear weight although it is painful to do so. Patient has no history of fracture or surgery to her left foot and ankle. Patient denies pain or injury to her left hip and knee. Trauma Review of Systems Musculoskeletal: Left Foot Pain; Left Ankle Pain All other systems reviewed and are negative. Objective BP 130/78 Pulse 67 Temp 37 ?C (98.6 ?F) Resp 20 Wt 115 kg (253 lb 8.5 oz) LMP 09/13/2014 SpO2 98% BMI 42.19 kg/m? Physical Exam Vitals and nursing note reviewed. Constitutional: Appearance: Normal appearance. She is normal weight. HENT: Head: Normocephalic and atraumatic. Nose: Nose normal. Mouth/Throat: Mouth: Mucous membranes are moist. Pharynx: Oropharynx is clear. Eyes: Extraocular Movements: Extraocular movements intact. Conjunctiva/sclera: Conjunctivae normal. Pupils: Pupils are equal, round, and reactive to light. Cardiovascular: Rate and Rhythm: Normal rate. Pulses: Normal pulses. Pulmonary: Effort: Pulmonary effort is normal. Breath sounds: Normal breath sounds. Musculoskeletal: General: Swelling, tenderness and signs of injury present. No deformity. Cervical back: Normal range of motion and neck supple. Right lower leg: No edema. Left lower leg: No edema. Comments: Tenderness with palpation to the dorsal left foot. No crepitus or deformity is noted with palpation. Overlying skin is clear without erythema or ecchymosis. Patient demonstrates decreased range of motion in plantarflexion and dorsiflexion secondary to pain. Patient does demonstrate good range of motion to the left toes. Patient demonstrates antalgic gait with ambulation. Skin: General: Skin is warm and dry. Capillary Refill: Capillary refill takes less than 2 seconds. Findings: No bruising or erythema. Neurological: General: No focal deficit present. Mental Status: She is alert and oriented to person, place, and time. Psychiatric: Mood and Affect: Mood normal. Behavior: Behavior normal. Thought Content: Thought content normal. Judgment: Judgment normal. Assessment and Plan Physical exam findings as noted above. X-ray left foot is negative for acute findings as reported by the radiologist. X-ray left ankle is negative for acute findings as reported by the radiologist. An Ortho shoe was placed to the patient's left foot myself with MSP intact pre and postplacement. Patient was strongly encouraged to schedule appointment with the encoding machine operator for further evaluation and management of her left foot sprain. RICE and supportive care was discussed and the patient verbalizes excellent understanding of same. CLINICAL IMPRESSION: Sprain/Strain Left Foot ASSESSMENT/PLAN: 1. Foot sprain, left, initial encounter - ICD9: 845.10, ICD10: S93.602A - XR FOOT GENERAL 3V AP/LAT/OBL LEFT - XR ANKLE GENERAL 3V AP/LAT/OBL LEFT [facility]01-16-2025 History of Present illness Narrative* Matti Anderson PA-C - 09/01/2024 12:02 PM EST This note was created using [employer]. Subjective Martha Ward is a 44 year old female. Is a 44-year-old female who complains of pain and swelling to her left foot and ankle secondary to fall injury that she sustained approximately 2 hours prior to arrival today. Patient reports that she was descending steps outside her home when she slipped and twisted her left foot and ankle immediately. Patient also states that she bent her left foot backwards. Patient reports no paresthesia or paralysis and is able to bear weight although it is painful to do so. Patient has no history of fracture or surgery to her left foot and ankle. Patient denies pain or injury to her left hip and knee. Trauma Review of Systems Musculoskeletal: Left Foot Pain; Left Ankle Pain All other systems reviewed and are negative. Objective BP 130/78 Pulse 67 Temp 37 C (98.6 F) Resp 20 Wt 115 kg (253 lb 8.5 oz) LMP 09/13/2014 SpO2 98% BMI 42.19 kg/m Physical Exam Vitals and nursing note reviewed. Constitutional: Appearance: Normal appearance. She is normal weight. HENT: Head: Normocephalic and atraumatic. Nose: Nose normal. Mouth/Throat: Mouth: Mucous membranes are moist. Pharynx: Oropharynx is clear. Eyes: Extraocular Movements: Extraocular movements intact. Conjunctiva/sclera: Conjunctivae normal. Pupils: Pupils are equal, round, and reactive to light. Cardiovascular: Rate and Rhythm: Normal rate. Pulses: Normal pulses. Pulmonary: Effort: Pulmonary effort is normal. Breath sounds: Normal breath sounds. Musculoskeletal: General: Swelling, tenderness and signs of injury present. No deformity. Cervical back: Normal range of motion and neck supple. Right lower leg: No edema. Left lower leg: No edema. Comments: Tenderness with palpation to the dorsal left foot. No crepitus or deformity is noted withpalpation. Overlying skin is clear without erythema or ecchymosis. Patient demonstrates decreased range of motion in plantarflexion and dorsiflexion secondary to pain. Patient does demonstrate good range of motion to the left toes. Patient demonstrates antalgic gait with ambulation. Skin: General: Skin is warm and dry. Capillary Refill: Capillary refill takes less than 2 seconds. Findings: No bruising or erythema. Neurological: General: No focal deficit present. Mental Status: She is alert and oriented to person, place, and time. Psychiatric: Mood and Affect: Mood normal. Behavior: Behavior normal. Thought Content: Thought content normal. Judgment: Judgment normal. Assessment and Plan Physical exam findings as noted above. X-ray left foot is negative for acute findings as reported by the radiologist. X-ray left ankle is negative for acute findings as reported by the radiologist. An Ortho shoe was placed to the patient's left foot myself with MSP intact pre and postplacement. Patient was strongly encouraged to schedule appointment with the encoding machine operator for further evaluation and management of her left foot sprain. RICE and supportive care was discussed and the patient verbalizes excellent understanding of same. CLINICAL IMPRESSION: Sprain/Strain Left Foot ASSESSMENT/PLAN: 1. Foot sprain, left, initial encounter - ICD9: 845.10, ICD10: S93.602A - XR FOOT GENERAL 3V AP/LAT/OBL LEFT - XR ANKLE GENERAL 3V AP/LAT/OBL LEFT Matti Anderson PA-C documented in this encounter01-02-2025 Evaluation note* Diagnosis Onset Date Resolution Status Admit Date Fatigue noneactive August 18 9:47am Dizziness noneactive August 18 9:47am Hot flashes noneactive August 18, 2024 9:47am Family history of factor V deficiency noneactive August 18 9:47am Anxiety noneactive August 18 9:47am Mixed hyperlipidemia noneactive 2024 9:47am TMJ (dislocation of temporomandibular joint) noneactive August 18, 2024 9:47am Morbid obesity with BMI of 40.0-44.9, adult noneactive August 18 9:47am Vitamin d deficiency noneactive 2024 9:47am Left knee DJD acute August 12:49pm Metatarsophalangeal (joint) sprain acute September 05 12:49pm Obesity acute September 05, 2024 12:49pm Right knee DJD acute September 052024 12:49pm Hot flashes noneactive September 8:00am Anxiety noneactive October 13, 2024 8:00am Mixed hyperlipidemia noneactive Febr uary 2024 8:00am Elevated liver enzymes noneactive Fe bruary 2024 8:00am TMJ (dislocation of temporomandibular joint) noneactive uar y 2024 8:00am Morbid obesity with BMI of 40.0-44.9, adult noneactive October 13, 2024 8:00am Right knee DJD acute October 19, 2024 10:52am [facility] Work Phone: 1(108) 809-230812-10-2024 NoteHNO ID: [id number] Author: AISHA CARLSON PA-C Service: ? Author Type: Physician Parakeet Raiser Type: Progress Notes Filed: 07/26/2024 10:47 Note Text: This note was created using [employer]. Subjective Martha Ward is a 44 year old female. HPI Presents with a chief complaint of urinary frequency and dysuria over 3 days. Denies back pain or abdominal pain. No fever. No vaginal complaints. Denies chance of . Patient also complaining of dizziness since this morning. She also has a headache. Does not typically get headaches. No blurred or double vision. No weakness numbness or tingling. No fever. She would like her ears looked at to make sure there is no infection. She is not having ear pain. No history of vertigo. Review of Systems Constitutional: Negative. HENT: Negative. Cardiovascular: Negative. Gastrointestinal: Negative. Genitourinary: Positive for dysuria, frequency and urgency. Negative for vaginal bleeding, vaginal discharge and vaginal pain. Neurological: Positive for dizziness, light-headedness and headaches. Negative for tremors, seizures, syncope, facial asymmetry, speech difficulty and numbness. Hematological: Negative. Psychiatric/Behavioral: Negative. All other systems reviewed and are negative. PAST MEDICAL HISTORY Diagnosis Date Sebaceous cyst of breast 03/23/2013 Current Outpatient Medications Medication Sig Dispense Refill meloxicam (MOBIC) 15 mg tablet Take 1 tablet by mouth every afternoon. EYALURONIC ACID 10 mg/mL(mw 2.4 -3.6 million) injection INJECT 1 DOSE ONCE A WEEK FOR THE LEFT KNEE FOR 3 WEEKS (Patient not taking: Reported on 05/15/2024) predniSONE (DELTASONE) 10 mg tablet Take 4 tabs daily for 3 days, then 2 tabs daily for 3 days, then 1 tab daily for 3 days with food. (Patient not taking: Reported on 05/15/2024) 21 tablet 0 No current facility-administered medications for this visit. PAST SURGICAL HISTORY Procedure Laterality Date ESSURE 09/06/2013 in office [facility] HYSTERECTOMY HX PAST SURGICAL HISTORY OF 2007 Dx. Lap ovarian cyst FAMILY HISTORY Problem Relation Age of Onset Hypertension Mother Heart Sister Hypertension Maternal Grandmother Cancer Maternal Grandfather liver Hypertension Paternal Grandmother Heart Paternal Grandmother Diabetes Paternal Grandmother Social History Tobacco Use Smoking status: Never Smokeless tobacco: Never Vaping Use Vaping status: Never Used Substance Use Topics Alcohol use: No Drug use: No Objective BP 112/76 Pulse 62 Temp 36.7 ?C (98.1 ?F) (Tympanic) Resp 18 Wt 117.8 kg (259 lb 11.2 oz) LMP 09/13/2014 SpO2 97% BMI 43.22 kg/m? Physical Exam Vitals reviewed. Constitutional: Appearance: Normal appearance. HENT: Head: Normocephalic and atraumatic. Cardiovascular: Rate and Rhythm: Normal rate and regular rhythm. Heart sounds: Normal heart sounds. Pulmonary: Effort: Pulmonary effort is normal. Breath sounds: Normal breath sounds. Abdominal: General: Abdomen is flat. Palpations: Abdomen is soft. Tenderness: There is no right CVA tenderness or left CVA tenderness. Skin: General: Skin is warm and dry. Neurological: General: No focal deficit present. Mental Status: She is alert and oriented to person, place, and time. Assessment and Plan ASSESSMENT/PLAN: 1. Urinary frequency - ICD9: 788.41, ICD10: R35.0 (primary diagnosis) Urine dip was completely clear. Discussed with patient limitation of express care to evaluate dizziness, recommended emergency department evaluation for this. Recommended [facility] ED, patient not dizzy currently. Patient voiced understanding of plan. - UA DIP, URINE (POC) - URINE CULTURE 2. Dizziness - ICD9: 780.4, ICD10: R42 [facility]12-10-2024 History of Present illness Narrative* Aisha Carlson PA-C - 07/26/2024 10:44 AM EST This note was created using [employer]. Subjective Martha Ward is a 44 year old female. HPI Presents with a chief complaint of urinary frequency and dysuria over 3 days. Denies back pain or abdominal pain. No fever. No vaginal complaints. Denies chance of . Patient also complainingof dizziness since this morning. She also has a headache. Does not typically get headaches. No blurred or double vision. No weakness numbness or tingling. No fever. She would like her ears looked at to make sure there is no infection. She is not having ear pain. No history of vertigo. Review of Systems Constitutional: Negative. HENT: Negative. Cardiovascular: Negative. Gastrointestinal: Negative. Genitourinary: Positive for dysuria, frequency and urgency. Negative for vaginal bleeding, vaginal discharge and vaginal pain. Neurological: Positive for dizziness, light-headedness and headaches. Negative for tremors, seizures, syncope, facial asymmetry, speech difficulty and numbness. Hematological: Negative. Psychiatric/Behavioral: Negative. All other systems reviewed and are negative. PAST MEDICAL HISTORY Diagnosis Date Sebaceous cyst of breast 03/23/2013 Current Outpatient Medications Medication Sig Dispense Refill meloxicam (MOBIC) 15 mg tablet Take 1 tablet by mouth every afternoon. EYALURONIC ACID 10 mg/mL(mw 2.4 -3.6 million) injection INJECT 1 DOSE ONCE A WEEK FOR THE LEFT KNEEFOR 3 WEEKS (Patient not taking: Reported on 05/15/2024) predniSONE (DELTASONE) 10 mg tablet Take 4 tabs daily for 3 days, then 2 tabs daily for 3 days, then 1 tab daily for 3 days with food. (Patient not taking: Reported on 05/15/2024) 21 tablet 0 No current facility-administered medications for this visit. PAST SURGICAL HISTORY Procedure Laterality Date ESSURE 09/06/2013 in office [facility] HYSTERECTOMY HX PAST SURGICAL HISTORY OF 2006 Dx. Lap ovarian cyst FAMILY HISTORY Problem Relation Age of Onset Hypertension Mother Heart Sister Hypertension Maternal Grandmother Cancer Maternal Grandfather liver Hypertension Paternal Grandmother Heart Paternal Grandmother Diabetes Paternal Grandmother Social History Tobacco Use Smoking status: Never Smokeless tobacco: Never Vaping Use Vaping status: Never Used Substance Use Topics Alcohol use: No Drug use: No Objective BP 112/76 Pulse 62 Temp 36.7 C (98.1 F) (Tympanic) Resp 18 Wt 117.8 kg (259 lb 11.2 oz) LMP 09/13/2014 SpO2 97% BMI 43.22 kg/m Physical Exam Vitals reviewed. Constitutional: Appearance: Normal appearance. HENT: Head: Normocephalic and atraumatic. Cardiovascular: Rate and Rhythm: Normal rate and regular rhythm. Heart sounds: Normal heart sounds. Pulmonary: Effort: Pulmonary effort is normal. Breath sounds: Normal breath sounds. Abdominal: General: Abdomen is flat. Palpations: Abdomen is soft. Tenderness: There is no right CVA tenderness or left CVA tenderness. Skin: General: Skin is warm and dry. Neurological: General: No focal deficit present. Mental Status: She is alert and oriented to person, place, and time. Assessment and Plan ASSESSMENT/PLAN: 1. Urinary frequency - ICD9: 788.41, ICD10: R35.0 (primary diagnosis) Urine dip was completely clear. Discussed with patient limitation of express care to evaluate dizziness, recommended emergency department evaluation for this. Recommended [facility] ED, patient not dizzy currently. Patient voiced understanding of plan. - UA DIP, URINE (POC) - URINE CULTURE 2. Dizziness - ICD9: 780.4, ICD10: R42 Aisha Carlson PA-C documented in this encounter09-29-2024 NoteHNO ID: [id number] Author: KRYSTIN GOODWIN APRN.[facility] Service: ? Author Type: Nurse Practitioner Type: Progress Notes Filed: 05/15/2024 08:38 Note Text: CC: Patient presents with: Cough: BRUNO, sore throat, stuffy nose, sneezing, fatigue x 5 days HPI: Martha Ward is a 43 year old female who presents to the office with complaint of chest congestion, head congestion, cough, productive, and wheezing for 5 days. Symptoms are worsening Associated symptoms includes sneezing, nasal congestion, and dyspnea. Denies nausea, vomiting , and diarrhea. Treatments tried include nothing so far. with no relief of symptoms. Sick contacts: unknown. History of asthma, frequent episodes of bronchitis, chronic bronchitis, bronchiectasis or COPD: No Smoker: No Seasonal/environmental allergies: No The ROS is otherwise negative. The patient's pmh, medications, allergies, and past visits are reviewed. PHYSICAL EXAM: BP 110/78 Pulse 85 Temp 36.9 ?C (98.5 ?F) Resp 20 Wt 115.8 kg (255 lb 4.7 oz) LMP 09/13/2014 SpO2 97% BMI 42.48 kg/m? General appearance: alert, cooperative, pleasant, in no acute distress Head: Normocephalic Eyes: EOM's intact, conjunctiva pink and moist, no icterus, sclera white, non-injected Ears: Right ear: External ear/canal- Normal, TM - clear with good landmarks. Left ear: External ear/canal- Normal, TM - clear with good landmarks Oropharynx:moist without lesions, No erythema, exudates or tonsillar hypertrophy. Heart: Negative. RRR without obvious murmur, gallop, or rubs. No ectopy. Lungs: clear to auscultation, without rales or wheeze, good air exchange PAST MEDICAL HISTORY Diagnosis Date Sebaceous cyst of breast 03/23/2013 PAST SURGICAL HISTORY Procedure Laterality Date ESSURE 09/06/2013 in office [facility] HYSTERECTOMY HX PAST SURGICAL HISTORY OF 2006 Dx. Lap ovarian cyst ALLERGIES Amoxicillin and Sulfacetamide MEDICATIONS meloxicam (MOBIC) 15 mg tablet Take 1 tablet by mouth every afternoon. EYALURONIC ACID 10 mg/mL(mw 2.4 -3.6 million) injection INJECT 1 DOSE ONCE A WEEK FOR THE LEFT KNEE FOR 3 WEEKS (Patient not taking: Reported on 05/15/2024) azithromycin (ZITHROMAX) 250 mg tablet Take 2 tablets by mouth once daily for 1 day, THEN 1 tablet once daily for 4 days. predniSONE (DELTASONE) 10 mg tablet Take 4 tabs daily for 3 days, then 2 tabs daily for 3 days, then 1 tab daily for 3 days with food. (Patient not taking: Reported on 05/15/2024) FAMILY HISTORY Problem Relation Age of Onset Hypertension Mother Heart Sister Hypertension Maternal Grandmother Cancer Maternal Grandfather liver Hypertension Paternal Grandmother Heart Paternal Grandmother Diabetes Paternal Grandmother Social History Tobacco Use Smoking status: Never Smokeless tobacco: Never Vaping Use Vaping status: Never Used Substance Use Topics Alcohol use: No Drug use: No ASSESSMENT/PLAN: 1. Respiratory infection - ICD9: 519.8, ICD10: J98.8 - AZITHROMYCIN 250 MG TABLET Prescription instructions reviewed with patient as applicable. Potential red flag symptoms discussed with the patient. Reviewed appropriate action plan to take if red flag symptoms occur. Patient agreeable to treatment plan. Krystin Goodwin APRN.[facility]09-29-2024 History of Present illness Narrative* Krystin Goodwin APRN.[facility] - 05/15/2024 8:32 AM EDT CC: Patient presents with: Cough: BRUNO, sore throat, stuffy nose, sneezing, fatigue x 5 days HPI: Martha Ward is a 43 year old female who presents to the office with complaint of chest congestion, head congestion, cough, productive, and wheezing for 5 days. Symptoms are worsening Associated symptoms includes sneezing, nasal congestion, and dyspnea. Denies nausea, vomiting , and diarrhea. Treatments tried include nothing so far. with no relief of symptoms. Sick contacts: unknown. History of asthma, frequent episodes of bronchitis, chronic bronchitis, bronchiectasis or COPD: No Smoker: No Seasonal/environmental allergies: No The ROS is otherwise negative. The patient's pmh, medications, allergies, and past visits are reviewed. PHYSICAL EXAM: BP 110/78 Pulse 85 Temp 36.9 C (98.5 F) Resp 20 Wt 115.8 kg (255 lb 4.7 oz) LMP 09/13/2014 SpO2 97% BMI 42.48 kg/m General appearance: alert, cooperative, pleasant, in no acute distress Head: Normocephalic Eyes: EOM's intact, conjunctiva pink and moist, no icterus, sclera white, non-injected Ears: Right ear: External ear/canal- Normal, TM - clear with good landmarks. Left ear: External ear/canal- Normal, TM - clear with good landmarks Oropharynx:moist without lesions, No erythema, exudates or tonsillar hypertrophy. Heart: Negative. RRR without obvious murmur, gallop, or rubs. No ectopy. Lungs: clear to auscultation, without rales or wheeze, good air exchange PAST MEDICAL HISTORY Diagnosis Date Sebaceous cyst of breast 03/23/2013 PAST SURGICAL HISTORY Procedure Laterality Date ESSURE 09/06/2013 in office [facility] HYSTERECTOMY HX PAST SURGICAL HISTORY OF 2007 Dx. Lap ovarian cyst ALLERGIES Amoxicillin and Sulfacetamide MEDICATIONS meloxicam (MOBIC) 15 mg tablet Take 1 tablet by mouth every afternoon. EYALURONIC ACID 10 mg/mL(mw 2.4 -3.6 million) injection INJECT 1 DOSE ONCE A WEEK FOR THE LEFT KNEEFOR 3 WEEKS (Patient not taking: Reported on 05/15/2024) azithromycin (ZITHROMAX) 250 mg tablet Take 2 tablets by mouth once daily for 1 day, THEN 1 tablet once daily for 4 days. predniSONE (DELTASONE) 10 mg tablet Take 4 tabs daily for 3 days, then 2 tabs daily for 3 days, then 1 tab daily for 3 days with food. (Patient not taking: Reported on 05/15/2024) FAMILY HISTORY Problem Relation Age of Onset Hypertension Mother Heart Sister Hypertension Maternal Grandmother Cancer Maternal Grandfather liver Hypertension Paternal Grandmother Heart Paternal Grandmother Diabetes Paternal Grandmother Social History Tobacco Use Smoking status: Never Smokeless tobacco: Never Vaping Use Vaping status: Never Used Substance Use Topics Alcohol use: No Drug use: No ASSESSMENT/PLAN: 1. Respiratory infection - ICD9: 519.8, ICD10: J98.8 - AZITHROMYCIN 250 MG TABLET Prescription instructions reviewed with patient as applicable. Potential red flag symptoms discussed with the patient. Reviewed appropriate action plan to take if red flag symptoms occur. Patient agreeable to treatment plan. Krystin Goodwin APRN.CNP documented in this encounter08-11-2024 Telephone encounter Note * Telephone Encounter - Martha Moraes MA - 03/27/2024 9:01 AM EDT Patient given results and verbalized understanding of instructions given. Martha Moraes MA 08-11-2024 Miscellaneous Notes* Telephone Encounter - Martha Moraes MA - 03/27/2024 9:01 AM EDT Patient given results and verbalized understanding of instructions given. Martha Moraes MA * Telephone Encounter - Xavier Sal PA - 03/27/2024 8:40 AM EDT These contact patient and let her know she tested positive for COVID-19. Supportive treatment documented in this encounter08-11-2024 Telephone encounter Note * Telephone Encounter - Xavier Sal PA - 03/27/2024 8:40 AM EDT These contact patient and let her know she tested positive for COVID-19. Supportive treatment Work Phone: [phone]) 562-697408-10-2024 NoteHNO ID: [id number] Author: NUVIA BHAKTA APRN.[employer] Service: ? Author Type: Nurse Practitioner Type: Progress Notes Filed: 03/26/2024 15:28 Note Text: This note was created using [employer]. Subjective Martha Ward is a 43 year old female. 43 year old female with no significant PMH presents for illness. Acute onset 2 days ago +fatigue +headache + cough +sore throat +chills Denies fever Denies N/V/D Denies SOB or dyspnea Denies abdominal pain Home COVID positive today States that family members tested POSITIVE as well Just want to check The history is provided by the patient. No online merchandising coordinator was used. Cough This is a new problem. The current episode started 2 days ago. The problem occurs constantly. The problem has not changed since onset.The cough is Non-productive. There has been no fever. Associated symptoms include chills, headaches and rhinorrhea. Pertinent negatives include no chest pain, no sweats, no weight loss, no ear congestion, no ear pain, no sore throat, no myalgias, no shortness of breath, no wheezing and no eye redness. She has tried nothing for the symptoms. The treatment provided no relief. She is not a smoker. Her past medical history does not include bronchitis, pneumonia, bronchiectasis, COPD, emphysema or asthma. PAST MEDICAL HISTORY 03/23/2013: Sebaceous cyst of breast PAST SURGICAL HISTORY 09/06/2013: ESSURE Comment: in office [facility] No date: HYSTERECTOMY HX 2006: PAST SURGICAL HISTORY OF Comment: Dx. Lap ovarian cyst ALLERGIES Amoxicillin and Sulfacetamide MEDICATIONS predniSONE (DELTASONE) 10 mg tablet Take 4 tabs daily for 3 days, then 2 tabs daily for 3 days, then 1 tab daily for 3 days with food. FAMILY HISTORY Problem Relation Age of Onset Hypertension Mother Heart Sister Hypertension Maternal Grandmother Cancer Maternal Grandfather liver Hypertension Paternal Grandmother Heart Paternal Grandmother Diabetes Paternal Grandmother Social History Tobacco Use Smoking status: Never Smokeless tobacco: Never Vaping Use Vaping Use: Never used Substance Use Topics Alcohol use: No Drug use: No Review of Systems Constitutional: Positive for chills and fatigue. Negative for weight loss. HENT: Positive for congestion and rhinorrhea. Negative for ear pain and sore throat. Eyes: Negative for discharge, redness and itching. Respiratory: Positive for cough. Negative for apnea, chest tightness, shortness of breath and wheezing. Cardiovascular: Negative for chest pain. Gastrointestinal: Negative for abdominal pain, diarrhea and nausea. Musculoskeletal: Negative for myalgias. Allergic/Immunologic: Negative for environmental allergies, food allergies and immunocompromised state. Neurological: Positive for headaches. Negative for dizziness and facial asymmetry. Hematological: Negative for adenopathy. Does not bruise/bleed easily. Psychiatric/Behavioral: Negative for agitation and behavioral problems. Objective BP 110/78 Pulse 79 Temp 36.8 ?C (98.2 ?F) (Tympanic) Resp 18 Wt 118.2 kg (260 lb 9.3 oz) LMP 09/13/2014 SpO2 96% BMI 43.36 kg/m? Physical Exam Vitals and nursing note reviewed. Constitutional: General: She is not in acute distress. Appearance: Normal appearance. She is obese. She is not ill-appearing, toxic-appearing or diaphoretic. HENT: Head: Normocephalic and atraumatic. Right Ear: Ear canal and external ear normal. Left Ear: Ear canal and external ear normal. Nose: Nose normal. No congestion or rhinorrhea. Mouth/Throat: Mouth: Mucous membranes are moist. Pharynx: No oropharyngeal exudate or posterior oropharyngeal erythema. Eyes: General: Right eye: No discharge. Left eye: No discharge. Extraocular Movements: Extraocular movements intact. Conjunctiva/sclera: Conjunctivae normal. Pupils: Pupils are equal, round, and reactive to light. Cardiovascular: Rate and Rhythm: Normal rate and regular rhythm. Pulses: Normal pulses. Heart sounds: Normal heart sounds. No murmur heard. No friction rub. Pulmonary: Effort: Pulmonary effort is normal. No respiratory distress. Breath sounds: Normal breath sounds. No stridor. No wheezing, rhonchi or rales. Chest: Chest wall: No tenderness. Abdominal: General: Abdomen is flat. There is no distension. Palpations: Abdomen is soft. There is no mass. Tenderness: There is no abdominal tenderness. There is no right CVA tenderness, left CVA tenderness, guarding or rebound. Hernia: No hernia is present. Musculoskeletal: General: No swelling, tenderness, deformity or signs of injury. Normal range of motion. Cervical back: Normal range of motion and neck supple. No rigidity. Right lower leg: No edema. Left lower leg: No edema. Lymphadenopathy: Cervical: No cervical adenopathy. Skin: General: Skin is warm and dry. Coloration: Skin is not jaundiced or pale. Findings: No bruising, erythema, (more content not included)...[facility]08-10-2024 History of Present illness Narrative* Nuvia Bhakta APRN.[employer] - 03/26/2024 3:03 PM EDT This note was created using [employer]. Subjective Martha Ward is a 43 year old female. 43 year old female with no significant PMH presents for illness. Acute onset 2 days ago +fatigue +headache + cough +sore throat +chills Denies fever Denies N/V/D Denies SOB or dyspnea Denies abdominal pain Home COVID positive today States that family members tested POSITIVE as well Just want to check The history is provided by the patient. No online merchandising coordinator was used. Cough This is a new problem. The current episode started 2 days ago. The problem occurs constantly. The problem has not changed since onset.The cough is Non- productive. There has been no fever. Associated symptoms include chills, headaches and rhinorrhea. Pertinent negatives include no chest pain, no sweats, no weight loss, no ear congestion, no ear pain, no sore throat, no myalgias, no shortness of breath, no wheezing and no eye redness. She has tried nothing for the symptoms. The treatment providedno relief. She is not a smoker. Her past medical history does not include bronchitis, pneumonia, bronchiectasis, COPD, emphysema or asthma. PAST MEDICAL HISTORY 03/23/2013: Sebaceous cyst of breast PAST SURGICAL HISTORY 09/06/2013: ESSURE Comment: in office [facility] No date: HYSTERECTOMY HX 2006: PAST SURGICAL HISTORY OF Comment: Dx. Lap ovarian cyst ALLERGIES Amoxicillin and Sulfacetamide MEDICATIONS predniSONE (DELTASONE) 10 mg tablet Take 4 tabs daily for 3 days, then 2 tabs daily for 3 days, then 1 tab daily for 3 days with food. FAMILY HISTORY Problem Relation Age of Onset Hypertension Mother Heart Sister Hypertension Maternal Grandmother Cancer Maternal Grandfather liver Hypertension Paternal Grandmother Heart Paternal Grandmother Diabetes Paternal Grandmother Social History Tobacco Use Smoking status: Never Smokeless tobacco: Never Vaping Use Vaping Use: Never used Substance Use Topics Alcohol use: No Drug use: No Review of Systems Constitutional: Positive for chills and fatigue. Negative for weight loss. HENT: Positive for congestion and rhinorrhea. Negative for ear pain and sore throat. Eyes: Negative for discharge, redness and itching. Respiratory: Positive for cough. Negative for apnea, chest tightness, shortness of breath and wheezing. Cardiovascular: Negative for chest pain. Gastrointestinal: Negative for abdominal pain, diarrhea and nausea. Musculoskeletal: Negative for myalgias. Allergic/Immunologic: Negative for environmental allergies, food allergies and immunocompromised state. Neurological: Positive for headaches. Negative for dizziness and facial asymmetry. Hematological: Negative for adenopathy. Does not bruise/bleed easily. Psychiatric/Behavioral: Negative for agitation and behavioral problems. Objective BP 110/78 Pulse 79 Temp 36.8 C (98.2 F) (Tympanic) Resp 18 Wt 118.2 kg (260 lb 9.3 oz) LMP 09/13/2014 SpO2 96% BMI 43.36 kg/m Physical Exam Vitals and nursing note reviewed. Constitutional: General: She is not in acute distress. Appearance: Normal appearance. She is obese. She is not ill-appearing, toxic- appearing or diaphoretic. HENT: Head: Normocephalic and atraumatic. Right Ear: Ear canal and external ear normal. Left Ear: Ear canal and external ear normal. Nose: Nose normal. No congestion or rhinorrhea. Mouth/Throat: Mouth: Mucous membranes are moist. Pharynx: No oropharyngeal exudate or posterior oropharyngeal erythema. Eyes: General: Right eye: No discharge. Left eye: No discharge. Extraocular Movements: Extraocular movements intact. Conjunctiva/sclera: Conjunctivae normal. Pupils: Pupils are equal, round, and reactive to light. Cardiovascular: Rate and Rhythm: Normal rate and regular rhythm. Pulses: Normal pulses. Heart sounds: Normal heart sounds. No murmur heard. No friction rub. Pulmonary: Effort: Pulmonary effort is normal. No respiratory distress. Breath sounds: Normal breath sounds. No stridor. No wheezing, rhonchi or rales. Chest: Chest wall: No tenderness. Abdominal: General: Abdomen is flat. There is no distension. Palpations: Abdomen is soft. There is no mass. Tenderness: There is no abdominal tenderness. There is no right CVA tenderness, left CVA tenderness, guarding or rebound. Hernia: No hernia is present. Musculoskeletal: General: No swelling, tenderness, deformity or signs of injury. Normal range of motion. Cervical back: Normal range of motion and neck supple. No rigidity. Right lower leg: No edema. Left lower leg: No edema. Lymphadenopathy: Cervical: No cervical adenopathy. Skin: General: Skin is warm and dry. Coloration: Skin is not jaundiced or pale. Findings: No bruising, erythema, lesion or rash. Neurological: General: No focal deficit present. Mental Status: She is alert and oriented to person, place, and time. Cranial Nerves: No cranial nerve deficit. Sensory: No sensory deficit. Motor: No weakness. Coordination: Coordination normal. Gait: Gait normal. Psychiatric: Mood and Affect: Mood normal. Behavior: Behavior normal. Thought Content: Thought content normal. Judgment: Judgment normal. Assessment and Plan ASSESSMENT/PLAN: 1. URI, acute - ICD9: 465.9, ICD10: J06.9 (primary diagnosis) - Discussed viral etiology and rationale for treatment. - Symptomatic treatment with prn analgesia - Supportive care with fluids and rest - The patient may also use OTC cough and cold meds as needed, warm salt water gargles, throat lozenges and/or OTC throat spray as needed, and nasal saline gtts and suction prn. - Follow up in 3-5 days if symptoms persist or sooner if worsening of symptoms - COVID & INFLUENZA A/B & RSV NAAT, ROUTINE 2. Exposure to COVID-19 virus - ICD9: V01.79, ICD10: Z20.822 Family members POSITIVE She had home Want to make sure that is what it is Nuvia Bhakta APRN.[employer] documented in this encounter07-22-2024 History of Present illness Narrative* Abel Berg RT(R) - 03/07/2024 10:30 AM EDT Radiology Service Progress Note PATIENT NAME: Martha Ward DATE OF SERVICE: March 07, 2024 TIME: 10:28 AM PATIENT IDENTITY VERIFICATION COMPLETED USING TWO (2) IDENTIFIERS: Name and Date of confirmedby patient verbally. FALL SCREENING: Has the patient had 2 falls in the last year or 1 fall with injury or currently using an Ambulatory Assistive Device (Walker, Cane, Wheelchair, Crutches, etc.)? No PATIENT GENDER DATA: Female. status: : No status: NO. PATIENT RELEVANT IMPLANT DATA REVIEWED: Yes PATIENT PRESENTS WITH AN IMPLANTABLE OR ATTACHED OFFSHORING MANAGER: No RADIOLOGY DEPARTMENT: General X-ray: Exam(s) Completed: Upper Extremity X- Ray(s): Elbow, right PERIPHERAL IV DATA: Not applicable SIGNED BY: RT Ana Rosa(R) March 07, 2024 10:28 AM documented in this encounter07-22-2024 NoteHNO ID: [id number] Author: ABEL BERG RT(Brown) Service: Radiology Author Type: Technologist Type: Progress Notes Filed: 03/07/2024 10:37 Note Text: Radiology Service Progress Note PATIENT NAME: Martha Ward DATE OF SERVICE: March 07, 2024 TIME: 10:28 AM PATIENT IDENTITY VERIFICATION COMPLETED USING TWO (2) IDENTIFIERS: Name and Date of confirmed by patient verbally. FALL SCREENING: Has the patient had 2 falls in the last year or 1 fall with injury or currently using an Ambulatory Assistive Device (Walker, Cane, Wheelchair, Crutches, etc.)? No PATIENT GENDER DATA: Female. status: : No status: NO. PATIENT RELEVANT IMPLANT DATA REVIEWED: Yes PATIENT PRESENTS WITH AN IMPLANTABLE OR ATTACHED OFFSHORING MANAGER: No RADIOLOGY DEPARTMENT: General X-ray: Exam(s) Completed: Upper Extremity X-Ray(s): Elbow, right PERIPHERAL IV DATA: Not applicable SIGNED BY: RT Ana Rosa(R) March 07, 2024 10:28 [facility]07-22-2024 NoteHNO ID: [id number] Author: FREDDY LYONS APRN.[employer] Service: ? Author Type: Nurse Practitioner Type: Progress Notes Filed: 03/07/2024 10:53 Note Text: Subjective HPI Nontoxic-appearing female presents urgent care chief complaint right elbow pain. Duration of symptoms 4 weeks. Associated symptoms right elbow pain some episodic nervelike pain into her fingers. Patient states 4 weeks ago she hit her elbow on the side of the wall. Thought she did struck her funny bone. 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 Presents today with persistent pain. No significant decreased range of motion however this does elect pain. No swelling. No bruising. No breaks in skin. [id number]. No surgeries or fractures previously. Past medical history prescription medications allergies reviewed. .Patient presents with: Trauma: Right elbow pain, ran into wall x 4 weeks PAST MEDICAL HISTORY Diagnosis Date Sebaceous cyst of breast 03/23/2013 PAST SURGICAL HISTORY Procedure Laterality Date ESSURE 09/06/2013 in office [facility] HYSTERECTOMY HX PAST SURGICAL HISTORY OF 2006 Dx. Lap ovarian cyst ALLERGIES Amoxicillin and Sulfacetamide MEDICATIONS predniSONE (DELTASONE) 10 mg tablet Take 4 tabs daily for 3 days, then 2 tabs daily for 3 days, then 1 tab daily for 3 days with food. (Patient not taking: Reported on 03/07/2024) FAMILY HISTORY Problem Relation Age of Onset Hypertension Mother Heart Sister Hypertension Maternal Grandmother Cancer Maternal Grandfather liver Hypertension Paternal Grandmother Heart Paternal Grandmother Diabetes Paternal Grandmother Social History Tobacco Use Smoking status: Never Smokeless tobacco: Never Vaping Use Vaping Use: Never used Substance Use Topics Alcohol use: No Drug use: No BP 110/82 Pulse 75 Temp 37.2 ?C (98.9 ?F) Resp 21 Wt 118.2 kg (260 lb 9.3 oz) LMP 09/13/2014 SpO2 99% BMI 43.36 kg/m? Review of Systems Constitutional: Negative for chills, fever and malaise/fatigue. HENT: Negative for congestion, ear discharge, ear pain, sinus pain and sore throat. Eyes: Negative for blurred vision, pain, discharge and redness. Respiratory: Negative for cough, hemoptysis, sputum production, shortness of breath, wheezing and stridor. Cardiovascular: Negative for chest pain. Gastrointestinal: Negative for abdominal pain, diarrhea, nausea and vomiting. Musculoskeletal: Positive for joint pain. Negative for back pain, falls, myalgias and neck pain. Skin: Negative for itching and rash. Neurological: Negative for dizziness and headaches. Objective Physical Exam Constitutional: General: She is not in acute distress. Appearance: She is not toxic-appearing. HENT: Head: Normocephalic. Nose: Nose normal. Eyes: Pupils: Pupils are equal, round, and reactive to light. Cardiovascular: Rate and Rhythm: Normal rate. Pulmonary: Effort: Pulmonary effort is normal. No respiratory distress. Musculoskeletal: Right upper arm: Normal. Right elbow: No swelling, deformity, effusion or lacerations. Decreased range of motion. Tenderness present in radial head. Right forearm: Normal. Right wrist: No bony tenderness or snuff box tenderness. Normal range of motion. Right hand: No swelling, tenderness or bony tenderness. Normal range of motion. Normal strength. Normal sensation. Normal capillary refill. Normal pulse. Cervical back: Normal range of motion. Comments: Neurovascular intact. No decreased range of motion. No weakness. Pain with supination. Skin: General: Skin is warm and dry. Neurological: General: No focal deficit present. Mental Status: She is alert. ASSESSMENT/PLAN: 1. Injury of right elbow, initial encounter - ICD9: 959.3, ICD10: S59.901A - XR ELBOW SPECIAL VIEWS AP/LAT/OTHER RIGHT IMPRESSION: No acute radiographic abnormalities seen in the right elbow. No acute findings noted on x-ray. Nerve impingement versus contusion. Referred to orthopedics. Patient was educated on supportive therapies. Patient will follow up with primary care provider as needed. Patient was instructed to immediately proceed to emergency room for any new, worsening, or symptoms lasting longer than anticipated. The patient's clinical presentation is otherwise unremarkable at this time. Based on exam and clinical finding, the patient is stable for discharge. Plan of care was discussed with patient. Patient verbalizes understanding and agrees to plan of care. This note was generated using [employer] software. It may contain errors in wording, punctuation, or spelling. Freddy Lyons APRN.[facility]07-22-2024 History of Present illness Narrative* Freddy Lyosn APRN.[facility] - 03/07/2024 10:26 AM EDT Subjective HPI Nontoxic-appearing female presents urgent care chief complaint right elbow pain. Duration of symptoms 4 weeks. Associated symptoms right elbow pain some episodic nervelike pain into her fingers. Patient states 4 weeks ago she hit her elbow on the side of the wall. Thought she did struck her funny bone. 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 Presents today with p ersistent pain. No significant decreased range of motion however this does elect pain. No swelling.No bruising. No breaks in skin. [id number]. No surgeries or fractures previously. Past medical history prescription medications allergies reviewed. .Patient presents with: Trauma: Right elbow pain, ran into wall x 4 weeks PAST MEDICAL HISTORY Diagnosis Date Sebaceous cyst of breast 03/23/2013 PAST SURGICAL HISTORY Procedure Laterality Date ESSURE 09/06/2013 in office [facility] HYSTERECTOMY HX PAST SURGICAL HISTORY OF 2006 Dx. Lap ovarian cyst ALLERGIES Amoxicillin and Sulfacetamide MEDICATIONS predniSONE (DELTASONE) 10 mg tablet Take 4 tabs daily for 3 days, then 2 tabs daily for 3 days, then 1 tab daily for 3 days with food. (Patient not taking: Reported on 03/07/2024) FAMILY HISTORY Problem Relation Age of Onset Hypertension Mother Heart Sister Hypertension Maternal Grandmother Cancer Maternal Grandfather liver Hypertension Paternal Grandmother Heart Paternal Grandmother Diabetes Paternal Grandmother Social History Tobacco Use Smoking status: Never Smokeless tobacco: Never Vaping Use Vaping Use: Never used Substance Use Topics Alcohol use: No Drug use: No BP 110/82 Pulse 75 Temp 37.2 C (98.9 F) Resp 21 Wt 118.2 kg (260 lb 9.3 oz) LMP 09/13/2014 SpO2 99% BMI 43.36 kg/m Review of Systems Constitutional: Negative for chills, fever and malaise/fatigue. HENT: Negative for congestion, ear discharge, ear pain, sinus pain and sore throat. Eyes: Negative for blurred vision, pain, discharge and redness. Respiratory: Negative for cough, hemoptysis, sputum production, shortness of breath, wheezing and stridor. Cardiovascular: Negative for chest pain. Gastrointestinal: Negative for abdominal pain, diarrhea, nausea and vomiting. Musculoskeletal: Positive for joint pain. Negative for back pain, falls, myalgias and neck pain. Skin: Negative for itching and rash. Neurological: Negative for dizziness and headaches. Objective Physical Exam Constitutional: General: She is not in acute distress. Appearance: She is not toxic-appearing. HENT: Head: Normocephalic. Nose: Nose normal. Eyes: Pupils: Pupils are equal, round, and reactive to light. Cardiovascular: Rate and Rhythm: Normal rate. Pulmonary: Effort: Pulmonary effort is normal. No respiratory distress. Musculoskeletal: Right upper arm: Normal. Right elbow: No swelling, deformity, effusion or lacerations. Decreased range of motion. Tendernesspresent in radial head. Right forearm: Normal. Right wrist: No bony tenderness or snuff box tenderness. Normal range of motion. Right hand: No swelling, tenderness or bony tenderness. Normal range of motion. Normal strength. Normal sensation. Normal capillary refill. Normal pulse. Cervical back: Normal range of motion. Comments: Neurovascular intact. No decreased range of motion. No weakness. Pain with supination. Skin: General: Skin is warm and dry. Neurological: General: No focal deficit present. Mental Status: She is alert. ASSESSMENT/PLAN: 1. Injury of right elbow, initial encounter - ICD9: 959.3, ICD10: S59.901A - XR ELBOW SPECIAL VIEWS AP/LAT/OTHER RIGHT IMPRESSION: No acute radiographic abnormalities seen in the right elbow. No acute findings noted on x-ray. Nerve impingement versus contusion. Referred to orthopedics. Patient was educated on supportive therapies. Patient will follow up with primary care provider as needed. Patient was instructed to immediately proceed to emergency room for any new, worsening, or symptoms lasting longer than anticipated. The patient's clinical presentation is otherwise unremarkable at this time. Based on exam and clinical finding, the patient is stable for discharge. Plan of care was discussed with patient. Patient verbalizes understanding and agrees to plan of care. This note was generated using Appydrink software. It may contain errors in wording, punctuation, or spelling. Freddy Lyons APRN.JAIMEE documented in this encounter05-03-2024 NoteHNO ID: [id number] Author: NUVIA BHAKTA APRN.CNP Service: ? Author Type: Nurse Practitioner Type: Progress Notes Filed: 12/18/2023 19:29 Note Text: This note was created using Locallyriter. Subjective Martha Ward is a 43 year old female. 43 year old female with no PMH presents for jaw pain. Acute onset of symptoms Ongoing for one week It is my TMJ +bilateral jaw pain +clicking +pain with eating Denies fever or chills Denies trauma or injury Denies jaw locking Has used Tylenol, Ibuprofen, heating pad. Steroids usually work for me Endorses she has a dentist. The history is provided by the patient. No online merchandising coordinator was used. Mouth/Lip Problem This is a new problem. The current episode started in the past 7 days. The problem occurs constantly. The problem has been unchanged. Pertinent negatives include no abdominal pain, anorexia, arthralgias, change in bowel habit, chest pain, chills, congestion, coughing, diaphoresis, fatigue, fever, headaches, joint swelling, myalgias, nausea, neck pain, numbness, rash, sore throat, swollen glands, urinary symptoms, vertigo, visual change, vomiting or weakness. Exacerbated by: eating and drinking. She has tried acetaminophen and heat (ibuprofen) for the symptoms. PAST MEDICAL HISTORY Diagnosis Date Sebaceous cyst of breast 03/23/2013 PAST SURGICAL HISTORY Procedure Laterality Date ESSURE 09/06/2013 in office [facility] HYSTERECTOMY HX PAST SURGICAL HISTORY OF 2007 Dx. Lap ovarian cyst ALLERGIES Amoxicillin and Sulfacetamide MEDICATIONS predniSONE (DELTASONE) 10 mg tablet Take 4 tabs daily for 3 days, then 2 tabs daily for 3 days, then 1 tab daily for 3 days with food. FAMILY HISTORY Problem Relation Age of Onset Hypertension Mother Heart Sister Hypertension Maternal Grandmother Cancer Maternal Grandfather liver Hypertension Paternal Grandmother Heart Paternal Grandmother Diabetes Paternal Grandmother Social History Tobacco Use Smoking status: Never Smokeless tobacco: Never Vaping Use Vaping Use: Never used Substance Use Topics Alcohol use: No Drug use: No Review of Systems Constitutional: Negative for chills, diaphoresis, fatigue and fever. HENT: Negative for congestion and sore throat. +jaw pain Eyes: Negative for pain, discharge, redness and itching. Respiratory: Negative for apnea, cough, choking and chest tightness. Cardiovascular: Negative for chest pain. Gastrointestinal: Negative for abdominal pain, anorexia, change in bowel habit, nausea and vomiting. Musculoskeletal: Negative for arthralgias, joint swelling, myalgias and neck pain. Skin: Negative for color change, pallor and rash. Allergic/Immunologic: Negative for environmental allergies, food allergies and immunocompromised state. Neurological: Negative for vertigo, weakness, numbness and headaches. Hematological: Negative for adenopathy. Does not bruise/bleed easily. Psychiatric/Behavioral: Negative for agitation and behavioral problems. Objective LMP 09/13/2014 BP 121/80 Pulse (!) 57 Temp 36.7 ?C (98.1 ?F) Resp 18 Wt 116 kg (255 lb 11.7 oz) LMP 09/13/2014 SpO2 99% BMI 42.56 kg/m? Physical Exam Vitals and nursing note reviewed. Constitutional: General: She is not in acute distress. Appearance: Normal appearance. She is normal weight. She is not ill-appearing, toxic-appearing or diaphoretic. HENT: Head: Normocephalic and atraumatic. Jaw: Tenderness and pain on movement present. Comments: Right TMJ clicking No trismus Uvula midline Handling secretions. Right Ear: Ear canal and external ear normal. Left Ear: Ear canal and external ear normal. Nose: Nose normal. No congestion or rhinorrhea. Mouth/Throat: Mouth: Mucous membranes are moist. Pharynx: No oropharyngeal exudate or posterior oropharyngeal erythema. Eyes: General: Right eye: No discharge. Left eye: No discharge. Extraocular Movements: Extraocular movements intact. Conjunctiva/sclera: Conjunctivae normal. Pupils: Pupils are equal, round, and reactive to light. Cardiovascular: Rate and Rhythm: Normal rate and regular rhythm. Pulses: Normal pulses. Heart sounds: Normal heart sounds. No murmur heard. No friction rub. Pulmonary: Effort: Pulmonary effort is normal. No respiratory distress. Breath sounds: Normal breath sounds. No stridor. No wheezing, rhonchi or rales. Chest: Chest wall: No tenderness. Abdominal: General: Abdomen is flat. There is no distension. Palpations: Abdomen is soft. There is no mass. Tenderness: There is no abdominal tenderness. There is no right CVA tenderness, left CVA tenderness, guarding or rebound. Hernia: No hernia is present. Musculoskeletal: General: No swelling, tenderness, deformity or signs of injury. Normal range of motion. Cervical back: Normal range of motion and neck supple. No rigidity. Right lower leg: No edema. Left lower leg: No edema. (more content not included)...[facility]05-03-2024 History of Present illness Narrative* Nuvia Bhakta APRN.FRICKERTRON CHECKER - 12/18/2023 7:07 PM EDT This note was created using [employer]. Subjective Martha Ward is a 43 year old female. 43 year old female with no PMH presents for jaw pain. Acute onset of symptoms Ongoing for one week It is my TMJ +bilateral jaw pain +clicking +pain with eating Denies fever or chills Denies trauma or injury Denies jaw locking Has used Tylenol, Ibuprofen, heating pad. Steroids usually work for me Endorses she has a dentist. The history is provided by the patient. No online merchandising coordinator was used. Mouth/Lip Problem This is a new problem. The current episode started in the past 7 days. The problem occurs constantly. The problem has been unchanged. Pertinent negatives include no abdominal pain, anorexia, arthralgias, change in bowel habit, chest pain, chills, congestion, coughing, diaphoresis, fatigue, fever, headaches, joint swelling, myalgias, nausea, neck pain, numbness, rash, sore throat, swollen glands, urinary symptoms, vertigo, visual change, vomiting or weakness. Exacerbated by: eating and drinking.She has tried acetaminophen and heat (ibuprofen) for the symptoms. PAST MEDICAL HISTORY Diagnosis Date Sebaceous cyst of breast 03/23/2013 PAST SURGICAL HISTORY Procedure Laterality Date ESSURE 09/06/2013 in office [facility] HYSTERECTOMY HX PAST SURGICAL HISTORY OF 2006 Dx. Lap ovarian cyst ALLERGIES Amoxicillin and Sulfacetamide MEDICATIONS predniSONE (DELTASONE) 10 mg tablet Take 4 tabs daily for 3 days, then 2 tabs daily for 3 days, then 1 tab daily for 3 days with food. FAMILY HISTORY Problem Relation Age of Onset Hypertension Mother Heart Sister Hypertension Maternal Grandmother Cancer Maternal Grandfather liver Hypertension Paternal Grandmother Heart Paternal Grandmother Diabetes Paternal Grandmother Social History Tobacco Use Smoking status: Never Smokeless tobacco: Never Vaping Use Vaping Use: Never used Substance Use Topics Alcohol use: No Drug use: No Review of Systems Constitutional: Negative for chills, diaphoresis, fatigue and fever. HENT: Negative for congestion and sore throat. +jaw pain Eyes: Negative for pain, discharge, redness and itching. Respiratory: Negative for apnea, cough, choking and chest tightness. Cardiovascular: Negative for chest pain. Gastrointestinal: Negative for abdominal pain, anorexia, change in bowel habit, nausea and vomiting. Musculoskeletal: Negative for arthralgias, joint swelling, myalgias and neck pain. Skin: Negative for color change, pallor and rash. Allergic/Immunologic: Negative for environmental allergies, food allergies and immunocompromised state. Neurological: Negative for vertigo, weakness, numbness and headaches. Hematological: Negative for adenopathy. Does not bruise/bleed easily. Psychiatric/Behavioral: Negative for agitation and behavioral problems. Objective LMP 09/13/2014 BP 121/80 Pulse (!) 57 Temp 36.7 C (98.1 F) Resp 18 Wt 116 kg (255 lb 11.7 oz) LMP 09/13/2014 SpO2 99% BMI 42.56 kg/m Physical Exam Vitals and nursing note reviewed. Constitutional: General: She is not in acute distress. Appearance: Normal appearance. She is normal weight. She is not ill-appearing, toxic-appearing or diaphoretic. HENT: Head: Normocephalic and atraumatic. Jaw: Tenderness and pain on movement present. Comments: Right TMJ clicking No trismus Uvula midline Handling secretions. Right Ear: Ear canal and external ear normal. Left Ear: Ear canal and external ear normal. Nose: Nose normal. No congestion or rhinorrhea. Mouth/Throat: Mouth: Mucous membranes are moist. Pharynx: No oropharyngeal exudate or posterior oropharyngeal erythema. Eyes: General: Right eye: No discharge. Left eye: No discharge. Extraocular Movements: Extraocular movements intact. Conjunctiva/sclera: Conjunctivae normal. Pupils: Pupils are equal, round, and reactive to light. Cardiovascular: Rate and Rhythm: Normal rate and regular rhythm. Pulses: Normal pulses. Heart sounds: Normal heart sounds. No murmur heard. No friction rub. Pulmonary: Effort: Pulmonary effort is normal. No respiratory distress. Breath sounds: Normal breath sounds. No stridor. No wheezing, rhonchi or rales. Chest: Chest wall: No tenderness. Abdominal: General: Abdomen is flat. There is no distension. Palpations: Abdomen is soft. There is no mass. Tenderness: There is no abdominal tenderness. There is no right CVA tenderness, left CVA tenderness, guarding or rebound. Hernia: No hernia is present. Musculoskeletal: General: No swelling, tenderness, deformity or signs of injury. Normal range of motion. Cervical back: Normal range of motion and neck supple. No rigidity. Right lower leg: No edema. Left lower leg: No edema. Lymphadenopathy: Cervical: No cervical adenopathy. Skin: General: Skin is warm and dry. Coloration: Skin is not jaundiced or pale. Findings: No bruising, erythema, lesion or rash. Neurological: General: No focal deficit present. Mental Status: She is alert and oriented to person, place, and time. Cranial Nerves: No cranial nerve deficit. Sensory: No sensory deficit. Motor: No weakness. Coordination: Coordination normal. Gait: Gait normal. Psychiatric: Mood and Affect: Mood normal. Behavior: Behavior normal. Thought Content: Thought content normal. Judgment: Judgment normal. Assessment and Plan ASSESSMENT/PLAN: 1. 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 Nuvia Bhakta APRN.JAIMEE documented in this encounter10-23-2023 Miscellaneous Notes* Telephone Encounter - Leyla Daniel Ma - 06/08/2023 9:41 AM EDT Call to pt and notified her of Providers results and recommendations below. Pt did state she took today off due to feeling more tired than anything. Leyla Daniel Ma * Telephone Encounter - Leyla Daniel Ma - 06/08/2023 9:39 AM EDT ----- Message from Sherrie Ponce APRN.FRICKERTRON CHECKER sent at 06/08/2023 9:34 AM EDT ----- Please advise patient the chest xray was negative (no pneumonia). Continue medications as prescribed. Follow instructions given by provider at visit, f/u with PCP if symptoms persist or worsen. documented in this encounter10-23-2023 History of Present illness Narrative* Abel Berg RT(R) - 06/08/2023 9:10 AM EDT Radiology Service Progress Note PATIENT NAME: Martha Ward DATE OF SERVICE: June 08, 2023 TIME: 9:09 AM PATIENT IDENTITY VERIFICATION COMPLETED USING TWO (2) IDENTIFIERS: Name and Date of confirmedby patient verbally. FALL SCREENING: Has the patient had 2 falls in the last year or 1 fall with injury or currently using an Ambulatory Assistive Device (Walker, Cane, Wheelchair, Crutches, etc.)? No PATIENT GENDER DATA: Female. status: : No status: NO. PATIENT RELEVANT IMPLANT DATA REVIEWED: Yes RADIOLOGY DEPARTMENT: General X-ray: Exam(s) Completed: Chest X-Ray PERIPHERAL IV DATA: Not applicable SIGNED BY: RT Ana Rosa(R) June 08, 2023 9:09 AM documented in this encounter10-22-2023 History of Present illness Narrative* Freddy Lyons APRN.JAIMEE - 06/07/2023 8:16 AM EDT Subjective HPI Nontoxic-appearing female presents to urgent care with chief complaint of upper respiratory tract like infection. Duration of symptoms 7 days. Associated symptoms sore throat, nasal congestion, nasaldischarge and nonproductive cough. Most prominent symptom today is sinus pressure and cough. Patient denies the use of any [id number] medications or home remedies for symptom management. Patient states recent sick contacts with similar signs and symptoms. Patient denies any productive cough, fever, chest pain, shortness of breath, pleuritic pain, rash, abdominal pain, nausea, vomiting or change in bowel or bladder habit. Past medical history prescription medication use allergies reviewed. .Patient presents with: Cough: Cough and congestion x 1 week PAST MEDICAL HISTORY Diagnosis Date Sebaceous cyst of breast 03/23/2013 PAST SURGICAL HISTORY Procedure Laterality Date ESSURE 09/06/2013 in office [facility] HYSTERECTOMY HX PAST SURGICAL HISTORY OF 2007 Dx. Lap ovarian cyst ALLERGIES Amoxicillin and Sulfacetamide MEDICATIONS No prescriptions on file. FAMILY HISTORY Problem Relation Age of Onset Hypertension Mother Heart Sister Hypertension Maternal Grandmother Cancer Maternal Grandfather liver Hypertension Paternal Grandmother Heart Paternal Grandmother Diabetes Paternal Grandmother Social History Tobacco Use Smoking status: Never Smokeless tobacco: Never Vaping Use Vaping Use: Never used Substance Use Topics Alcohol use: No Drug use: No BP 122/80 Pulse 63 Temp 36.4 C (97.6 F) (Tympanic) Resp 18 Wt 107.2 kg (236 lb 6.4 oz) LMP 09/13/2014 SpO2 99% BMI 39.34 kg/m Review of Systems Constitutional: Negative for chills, fever and malaise/fatigue. HENT: Positive for congestion and sinus pain. Negative for ear discharge, ear pain and sore throat. Eyes: Negative for blurred vision, pain, discharge and redness. Respiratory: Positive for cough. Negative for hemoptysis, sputum production, shortness of breath, wheezing and stridor. Cardiovascular: Negative for chest pain. Gastrointestinal: Negative for abdominal pain, diarrhea, nausea and vomiting. Musculoskeletal: Negative for myalgias. Skin: Negative for itching and rash. Neurological: Negative for dizziness and headaches. Objective Physical Exam Constitutional: General: She is not in acute distress. Appearance: She is not toxic-appearing or diaphoretic. HENT: Head: Normocephalic. Jaw: No trismus, tenderness, swelling or pain on movement. Right Ear: Tympanic membrane, ear canal and external ear normal. Left Ear: Tympanic membrane, ear canal and external ear normal. Nose: Congestion present. Right Sinus: Maxillary sinus tenderness present. Left Sinus: Maxillary sinus tenderness present. Mouth/Throat: Mouth: Mucous membranes are moist. Pharynx: Oropharynx is clear. Uvula midline. No pharyngeal swelling, oropharyngeal exudate, posterior oropharyngeal erythema or uvula swelling. Eyes: Conjunctiva/sclera: Conjunctivae normal. Pupils: Pupils are equal, round, and reactive to light. Cardiovascular: Rate and Rhythm: Normal rate and regular rhythm. Heart sounds: Normal heart sounds. Pulmonary: Effort: Pulmonary effort is normal. No tachypnea, accessory muscle usage or respiratory distress. Breath sounds: Normal breath sounds. No stridor. No wheezing, rhonchi or rales. Abdominal: General: There is no distension. Palpations: Abdomen is soft. Tenderness: There is no abdominal tenderness. There is no guarding or rebound. Musculoskeletal: Cervical back: Normal range of motion and neck supple. No edema, erythema, rigidity or tenderness. No pain with movement. Normal range of motion. Lymphadenopathy: Cervical: No cervical adenopathy. Skin: General: Skin is warm and dry. Neurological: General: No focal deficit present. Mental Status: She is alert and oriented to person, place, and time. ASSESSMENT/PLAN: 1. Acute cough - ICD9: 786.2, ICD10: R05.1 (primary diagnosis) - XR CHEST 2V FRONTAL/LAT 2. Sinobronchitis - ICD9: 473.9, 490, ICD10: J32.9, J40 Home COVID-19 test negative. Sinus pressure and cough are still bothersome. Sinus pressure has worsened recently. Diagnosed with sinobronchitis. Placed on doxycycline today. Return tomorrow for chestx-ray. Patient was educated on supportive therapies. Patient will follow up with primary care provider as needed. Patient was instructed to immediately proceed to emergency room for any new, worsening, or symptoms lasting longer than anticipated. The patient's clinical presentation is otherwise unremarkable at this time. Based on exam and clinical finding, the patient is stable for discharge. Plan of care was discussed with patient. Patient verbalizes understanding and agrees to plan of care. This note was generated using Appydrink software. It may contain errors in wording, punctuation, or spelling. Freddy Lyons APRN.FRICKERTRON CHECKER documented in this encounter07-28-2022 Miscellaneous Notes* Telephone Encounter - Adriane Longoria - 03/13/2022 11:21 AM EDT Addressed earlier message documented in this encounter07-12-2022 History of Present illness Narrative* Krystinyong Goodwin APRN.CNP - 02/25/2022 3:32 PM EDT Images from the original note were not included. Subjective Patient came in with complaints of discomfort over her TMJ area. Patient has had problems with thisbefore. She said it is bilaterally. She is suppose to wear a mouth guard but can not and feels likeshe has been under more stress than normal. patient said she wasn't sure if it was her was her earshurting or something else. Wanted to be checked. Can still eat and chew with no problems. The history is provided by the patient. No online merchandising coordinator was used. Ear Pain Review of Systems Constitutional: Negative. Skin: Negative. Objective Physical Exam Constitutional: Appearance: Normal appearance. HENT: Head: Comments: Patient has discomfort in the areas above when palpated. Pulmonary: Effort: Pulmonary effort is normal. Neurological: Mental Status: She is alert. PAST MEDICAL HISTORY Diagnosis Date Sebaceous cyst of breast 03/23/2013 PAST SURGICAL HISTORY Procedure Laterality Date ESSURE 09/06/2013 in office [facility] HYSTERECTOMY HX PAST SURGICAL HISTORY OF 2006 Dx. Lap ovarian cyst ALLERGIES Amoxicillin and Sulfacetamide MEDICATIONS No prescriptions on file. FAMILY HISTORY Problem Relation Age of Onset Hypertension Mother Heart Sister Hypertension Maternal Grandmother Cancer Maternal Grandfather liver Hypertension Paternal Grandmother Heart Paternal Grandmother Diabetes Paternal Grandmother Social History Tobacco Use Smoking status: Never Smoker Smokeless tobacco: Never Used Vaping Use Vaping Use: Never used Substance Use Topics Alcohol use: No Drug use: No ASSESSMENT/PLAN: 1. Muscle pain - ICD9: 729.1, ICD10: M79.10 prednisone 9 day taper. Educated about medication and supportive therapy to do at home. Patient will also take ibuprofen as needed for pain. Patient will follow up with PCP if symptoms persist. patient ws okay with this care plan. Krystin Goodwin APRN.JAIMEE documented in this encounter06-24-2022 History of Present illness Narrative* Maxwell Oh MD - 02/07/2022 10:31 AM EDT Associated Order(s): Large Joint Arthro/Inj: R knee joint Post-Procedure Diagnose(s): Arthritis of knee Interval History: Martha Ward is here for monovisc injection . Chief complaint is r knee pain . Review of Systems: CV: No chest pain Pulm: No short of breath HEENT: No head ache General: no fevers, chills, nausea/vomiting, malaise Physical Examination: This is a well appearing, well nourished patient in no acute distress. Head is normocephalic and atraumatic. White sclera and pink conjunctiva. Mucous membranes are moist. Breathes easily and has normal chest wall excursion. Affect is normal. Effusion: none Procedure note: After informed, verbal consent was obtained and a brief timeout was taken, the patient's right knee was injected with Monovisc using aseptic technique. The patient tolerated this welland without complaints. Patient supplied medication Impression: Martha Ward is a 41 year old female with right knee primary osteoarthritis. monoviscinjection today. Plan: 1. Return as necessary. Maxwell Oh MD Large Joint Arthro/Inj: R knee joint Informed Consent Consent Obtained: Verbal [place] Protocol A moment to CARE was completed. SIGN IN Sign in communication not applicable due to emergent procedure. Personnel directly involved with the procedure wore the appropriate PPE. Special Equipment: N/A Patient/Surrogate Stated/Verified: Patient name, Date of , Relevant allergies and Intended procedure TIME OUT Intended patient and procedure match the source document(s). Consent documented and matches the intended procedure. Relevant labs, photos, and/or imaging studies have been reviewed. Correct side/site marked and visible. Medications required for procedure verified. No fire risk assessment and interventions applicable. No implant(s) inserted. 02/07/2022 10:31 AM The procedure site was prepped in the usual sterile fashion. Site: R knee joint Medications: 4 mL hyaluronate sodium, stabilized 88 mg/4 mL Outcome: Tolerated well, no immediate complications Post-injection instructions were reviewed with the patient and the patient voiced understanding of these instructions. SIGN OUT All specimen containers correctly labeled. All instruments, equipment, possible retained foreign bodies accounted for. Post-procedure follow-up management communicated and Plan of Care Visit completed when applicable documented in this encounter05-25-2022 Miscellaneous Notes* Telephone Encounter - Pretty Crystal PA-C - 01/08/2022 1:31 PM EDT The following approved medication requests have been transmitted electronically. Signed Prescriptions Disp Refills hyaluronate sodium, stabilized (MONOVISC) 88 mg/4 mL syrg 4 mL 0 Si mL by INTRA-ARTICULAR route one time only for 1 dose. Monovisc Authorizing Provider: PRETTY CRYSTAL Sodium Hyaluronate (HYALURONAN) 30 mg/2 mL syrg 3 Syringe 0 Si mg by INTRA-ARTICULAR route one time a week for 3 doses. Orthovisc Authorizing Provider: PRETTY CRYSTAL PA-C * Telephone Encounter - Adriane Leyva Damian Adm - 01/08/2022 12:16 PM EDT Please enter a new script and send to the same pharmacy the below injections but insurance is requesting the script say Orthovisc or Monovisc. Medication sodium hyaluronate (EYALURONIC ACID) 10 mg/mL(mw 2.4 -3.6 million) injection Order Information Date and Time Department Ordering/Authorizing 01/07/2022 2:53 PM [facility] Stro Tawny Candelaria PA-C Order Providers Prescribing Provider Encounter Provider KHURRAM Harding MD Outpatient Medication Detail Disp Refills Start End sodium hyaluronate (EYALURONIC ACID) 10 mg/mL(mw 2.4 -3.6 million) injection 3 Syringe 0 01/07/2022 01/22/2022 Si mL by INTRA-ARTICULAR route one time a week for 3 doses. Sent to pharmacy as: sodium hyaluronate (EYALURONIC ACID) 10 mg/mL(mw 2.4 -3.6 million) injection Class: Normal Route: INTRA-ARTICULAR Order: [id number] E-Prescribing Status: Receipt confirmed by pharmacy (01/07/2022 2:54 PM EDT) Administration Details (suggestion) The administrations shown are only for this specific order and not for other orders for the same medication that may be in this encounter. No Administrations Recorded Order History Outpatient Date/Time Action Taken User Additional Information 01/07/22 1453 Sign Tawny Candelaria PA-C Reorder from Order:[id number] Associated Diagnoses Arthritis of knee [M17.10] - Primary Pharmacy E- [place] [address] - [address] [facility] [phone] [id number] documented in this encounter05-11-2022 Miscellaneous Notes* Telephone Encounter - Patric Serrato PA-C - 12/25/2021 4:45 PM EDT 3 Euflexa syringes prescribed via home delivery pharmacy. Patric Serrato PA-C * Telephone Encounter - Neetu Box Adm. Asst. - 12/25/2021 4:28 PM EDT Patient called and is trying to get Euflexxa injections [facility], she is coveredunder that pharmacy for these injections for her right knee. She was seen by Dr. Oh on 11-22-2021 and she is still waiting for her injections to go [facility] to [facility]. They are not there. She is going on vacation and she is really upset that she has not been able to get these. I am asking Dr. Oh to please escript and order to [facility] for Euflexxa injection X3 for her right knee. I have changed the pharmacy in her chart to reflect [facility]. Please help me get this forthis patient.her prescription. Thank you. Sending to Truong Serrato. Neetu Box Adm. Asst. documented in this encounter04-24-2013 History of Past illness Narrative* Problem Noted Date Resolved Date Supervision of other normal 12/08/2012 08/05/2013 History of UTI 10/26/2012 11/09/2012 Overview: 10/26/2012Shelvira was seen by Dr. Jackson on October 20 for suspected UTI. Patient states that her symptoms have resolved. Patient requested diagnostic testing 10/26/2012 08/05/2013 Overview: 10/26/2012Patient desires early screening in with sequential testing. 12/13/2012negative Sequential screen first trimester. The first part of the Sequential Screen reports that her risk for Down syndrome decreased from her age-related risk of 1:360 to 1:3,700 and her Trisomy 18 risk decreased from her age-related risk of 1:1,200 to 1:10,000. Based on these results Dr. Nagy's recommendation is for patient to follow-up with Sequential second trimester screening (01/06-01/20) and level II anatomy scan after 18wks.TKRN 01/11/2013negative Sequential screen second trimester. The second part of the Sequential Screen reports that her risk for Down syndrome decreased from her age-related risk of 1:490 to 1:10,000, her Trisomy 18 risk decreased from her age-related risk of 1:1,900 to 1:10,000 and the ONTD risk is 1:6,000. Based on these results Dr. Nagy's recommendation is for patient to follow-up with level II anatomy scan after 18wks.tkrn UTI (lower urinary tract infection) 10/20/2012 10/22/2012 Overview: 10/20/12 - rx macrobid, urine culture sent - KK documented as of this encounter (statuses as of 12/25/2021) 04-24-2013 History of Past illness Narrative* Problem Noted Date Resolved Date Supervision of other normal 12/08/2012 08/05/2013 History of UTI 10/26/2012 11/09/2012 Overview: 10/26/2012Shelvira was seen by Dr. Jackson on October 20 for suspected UTI. Patient states that her symptoms have resolved. Patient requested diagnostic testing 10/26/2012 08/05/2013 Overview: 10/26/2012Patient desires early screening in with sequential testing. 12/13/2012negative Sequential screen first trimester. The first part of the Sequential Screen reports that her risk for Down syndrome decreased from her age-related risk of 1:360 to 1:3,700 and her Trisomy 18 risk decreased from her age-related risk of 1:1,200 to 1:10,000. Based on these results Dr. Nagy's recommendation is for patient to follow-up with Sequential second trimester screening (01/06-01/20) and level II anatomy scan after 18wks.TKRN 01/11/2013negative Sequential screen second trimester. The second part of the Sequential Screen reports that her risk for Down syndrome decreased from her age-related risk of 1:490 to 1:10,000, her Trisomy 18 risk decreased from her age-related risk of 1:1,900 to 1:10,000 and the ONTD risk is 1:6,000. Based on these results Dr. Nagy's recommendation is for patient to follow-up with level II anatomy scan after 18wks.tkrn UTI (lower urinary tract infection) 10/20/2012 10/22/2012 Overview: 10/20/12 - rx macrobid, urine culture sent - KK documented as of this encounter (statuses as of 01/08/2022) 04-24-2013 History of Past illness Narrative* Problem Noted Date Resolved Date Supervision of other normal 12/08/2012 08/05/2013 History of UTI 10/26/2012 11/09/2012 Overview: 10/26/2012She was seen by Dr. Jackson on October 20 for suspected UTI. Patient states that her symptoms have resolved. Patient requested diagnostic testing 10/26/2012 08/05/2013 Overview: 10/26/2012Patient desires early screening in with sequential testing. 12/13/2012negative Sequential screen first trimester. The first part of the Sequential Screen reports that her risk for Down syndrome decreased from her age-related risk of 1:360 to 1:3,700 and her Trisomy 18 risk decreased from her age-related risk of 1:1,200 to 1:10,000. Based on these results Dr. Nagy's recommendation is for patient to follow-up with Sequential second trimester screening (01/06-01/20) and level II anatomy scan after 18wks.TKRN 01/11/2013negative Sequential screen second trimester. The second part of the Sequential Screen reports that her risk for Down syndrome decreased from her age-related risk of 1:490 to 1:10,000, her Trisomy 18 risk decreased from her age-related risk of 1:1,900 to 1:10,000 and the ONTD risk is 1:6,000. Based on these results Dr. Nagy's recommendation is for patient to follow-up with level II anatomy scan after 18wks.tkrn UTI (lower urinary tract infection) 10/20/2012 10/22/2012 Overview: 10/20/12 - rx macrobid, urine culture sent - KK documented as of this encounter (statuses as of 02/07/2022) 04-24-2013 History of Past illness Narrative* Problem Noted Date Resolved Date Supervision of other normal 12/08/2012 08/05/2013 History of UTI 10/26/2012 11/09/2012 Overview: 10/26/2012She was seen by Dr. Jackson on October 20 for suspected UTI. Patient states that her symptoms have resolved. Patient requested diagnostic testing 10/26/2012 08/05/2013 Overview: 10/26/2012Patient desires early screening in with sequential testing. 12/13/2012negative Sequential screen first trimester. The first part of the Sequential Screen reports that her risk for Down syndrome decreased from her age-related risk of 1:360 to 1:3,700 and her Trisomy 18 risk decreased from her age-related risk of 1:1,200 to 1:10,000. Based on these results Dr. Nagy's recommendation is for patient to follow-up with Sequential second trimester screening (01/06-01/20) and level II anatomy scan after 18wks.TKRN 01/11/2013negative Sequential screen second trimester. The second part of the Sequential Screen reports that her risk for Down syndrome decreased from her age-related risk of 1:490 to 1:10,000, her Trisomy 18 risk decreased from her age-related risk of 1:1,900 to 1:10,000 and the ONTD risk is 1:6,000. Based on these results Dr. Nagy's recommendation is for patient to follow-up with level II anatomy scan after 18wks.tkrn UTI (lower urinary tract infection) 10/20/2012 10/22/2012 Overview: 10/20/12 - rx macrobid, urine culture sent - KK documented as of this encounter (statuses as of 02/25/2022) 04-24-2013 History of Past illness Narrative* Problem Noted Date Resolved Date Supervision of other normal 12/08/2012 08/05/2013 History of UTI 10/26/2012 11/09/2012 Overview: 10/26/2012She was seen by Dr. Jackson on October 20 for suspected UTI. Patient states that her symptoms have resolved. Patient requested diagnostic testing 10/26/2012 08/05/2013 Overview: 10/26/2012Patient desires early screening in with sequential testing. 12/13/2012negative Sequential screen first trimester. The first part of the Sequential Screen reports that her risk for Down syndrome decreased from her age-related risk of 1:360 to 1:3,700 and her Trisomy 18 risk decreased from her age-related risk of 1:1,200 to 1:10,000. Based on these results Dr. Nagy's recommendation is for patient to follow-up with Sequential second trimester screening (01/06-01/20) and level II anatomy scan after 18wks.TKRN 01/11/2013negative Sequential screen second trimester. The second part of the Sequential Screen reports that her risk for Down syndrome decreased from her age-related risk of 1:490 to 1:10,000, her Trisomy 18 risk decreased from her age-related risk of 1:1,900 to 1:10,000 and the ONTD risk is 1:6,000. Based on these results Dr. Nagy's recommendation is for patient to follow-up with level II anatomy scan after 18wks.tkrn UTI (lower urinary tract infection) 10/20/2012 10/22/2012 Overview: 10/20/12 - rx macrobid, urine culture sent - KK documented as of this encounter (statuses as of 03/13/2022) 04-24-2013 History of Past illness Narrative* Problem Noted Date Diagnosed Date Resolved Date Supervision of other normal 12/08/2012 08/05/2013 History of UTI 10/26/2012 11/09/2012 Overview: 10/26/2012She was seen by Dr. Jackson on October 20 for suspected UTI. Patient states that her symptoms have resolved. Patient requested diagnostic testing 10/26/2012 08/05/2013 Overview: 10/26/2012Patient desires early screening in with sequential testing. 12/13/2012negative Sequential screen first trimester. The first part of the Sequential Screen reports that her risk for Down syndrome decreased from her age-related risk of 1:360 to 1:3,700 and her Trisomy 18 risk decreased from her age-related risk of 1:1,200 to 1:10,000. Based on these results Dr. Nagy's recommendation is for patient to follow-up with Sequential second trimester screening (01/06-01/20) and level II anatomy scan after 18wks.TKRN 01/11/2013negative Sequential screen second trimester. The second part of the Sequential Screen reports that her risk for Down syndrome decreased from her age-related risk of 1:490 to 1:10,000, her Trisomy 18 risk decreased from her age-related risk of 1:1,900 to 1:10,000 and the ONTD risk is 1:6,000. Based on these results Dr. Nagy's recommendation is for patient to follow-up with level II anatomy scan after 18wks.tkrn UTI (lower urinary tract infection) 10/20/2012 10/22/2012 Overview: 10/20/12 - rx macrobid, urine culture sent - KK documented as of this encounter (statuses as of 06/07/2023) 04-24-2013 History of Past illness Narrative* Problem Noted Date Diagnosed Date Resolved Date Supervision of other normal 12/08/2012 08/05/2013 History of UTI 10/26/2012 11/09/2012 Overview: 10/26/2012She was seen by Dr. Jackson on October 20 for suspected UTI. Patient states that her symptoms have resolved. Patient requested diagnostic testing 10/26/2012 08/05/2013 Overview: 10/26/2012Patient desires early screening in with sequential testing. 12/13/2012negative Sequential screen first trimester. The first part of the Sequential Screen reports that her risk for Down syndrome decreased from her age-related risk of 1:360 to 1:3,700 and her Trisomy 18 risk decreased from her age-related risk of 1:1,200 to 1:10,000. Based on these results Dr. Nagy's recommendation is for patient to follow-up with Sequential second trimester screening (01/06-01/20) and level II anatomy scan after 18wks.TKRN 01/11/2013negative Sequential screen second trimester. The second part of the Sequential Screen reports that her risk for Down syndrome decreased from her age-related risk of 1:490 to 1:10,000, her Trisomy 18 risk decreased from her age-related risk of 1:1,900 to 1:10,000 and the ONTD risk is 1:6,000. Based on these results Dr. Nagy's recommendation is for patient to follow-up with level II anatomy scan after 18wks.tkrn UTI (lower urinary tract infection) 10/20/2012 10/22/2012 Overview: 10/20/12 - rx macrobid, urine culture sent - KK documented as of this encounter (statuses as of 06/08/2023) Evaluation + Plan note No data available for this section [facility] Evaluation note* Diagnosis Arthritis of knee Unspecified arthropathy, lower leg documented in this encounter Evaluation note* Diagnosis Arthritis of knee- Primary Unspecified arthropathy, lower leg [facility]* Diagnosis Muscle pain- Primary Mylagia and myositis, unspecified documented in this encounter Evaluation note* Diagnosis Onset Date Resolution Status IBS (irritable bowel syndrome) acute Establishing care with new doctor, encounter for noneactive TMJ (dislocation of temporomandibular joint) noneactive Chronic knee pain noneactive Stress and adjustment reaction noneactive [facility] Work Phone: Evaluation note* Diagnosis Onset Date Resolution Status Anxiety noneactive TMJ (dislocation of temporomandibular joint) noneactive New onset headache noneactiv e Screening for breast cancer noneactive Sore throat noneactive Acute sinusitis acute Sore throat acute [facility] Work Phone: Evaluation note* Diagnosis Acute cough- Primary Sinobronchitis Unspecified sinusitis (chronic) [facility]* Diagnosis Onset Date Resolution Status Dysfunction of both eustachian tubes acute Ear fullness noneactive Screening for cardiovascular condition noneactive Fatigue noneactive Hot flashes noneactive Anxiety noneactive TMJ (dislocation of temporomandibular joint) noneactive Morbid obesity with BMI of 40.0-44.9, adult noneactive Left hip pain noneactive Screening for breast cancer noneactive [facility] Work Phone: Evaluation note* Diagnosis 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 [facility]* Diagnosis Injury of right elbow, initial encounter- Primary Injury of right elbow, initial encounter documented in this encounter [facility] note* Diagnosis URI, acute- Primary Acute upper respiratory infections of unspecified site Exposure to COVID-19 virus [facility]* Diagnosis Injury of right elbow, initial encounter [facility]* Diagnosis Acute cough [facility]* Diagnosis Respiratory infection- Primary Other diseases of respiratory system, not elsewhere classified documented in this encounter [facility] note* Diagnosis Urinary frequency- Primary Dizziness Dizziness and giddiness [facility]* Diagnosis Foot sprain, left, initial encounter- Primary [facility] No data available for this section [facility] Progress note No data available for this section [facility] Reason for referral (narrative)* Diagnostic Procedure Only (Urgent) - Closed Specialty Diagnoses / Procedures Referred By Contac t Referred To Contact XR IMAGING Diagnoses Injury of right elbow, initial encounter Procedures XR ELBOW SPECIAL VIEWS AP/LAT/OTHER RIGHT RADEX ELBOW COMPLETE MINIMUM 3 VIEWS Freddy Lyons, CULTURAL CENTRE MANAGER.FRICKERTRON CHECKER [address] [place] [address] [place] [address] Referral ID Status Reason Start Date Expiration Date V isits Requested Visits Authorized [id number] Closed Auto-Generate d Referral 03/07/2024 04/06/2025 1 1 [facility] for referral (narrative)* Diagnostic Procedure Only (Urgent) - Closed Specialty Diagnoses / Procedures Referred By Contac t Referred To Contact XR IMAGING Diagnoses Foot sprain, left, initial encounter Procedures XR ANKLE GENERAL 3V AP/LAT/OBL LEFT RADEX ANKLE COMPLETE MINIMUM 3 VIEWS Matti Anderson PA-C [address] [facility] [address] [place] [address] [place] [address] Referral ID Status Reason Start Date Expiration Date V isits Requested Visits Authorized [id number] Closed Auto-Generate d Referral 09/01/2024 10/01/2025 1 1 * Diagnostic Procedure Only (Urgent) - Closed Specialty Diagnoses / Procedures Referred By Contac t Referred To Contact XR IMAGING Diagnoses Foot sprain, left, initial encounter Procedures XR FOOT GENERAL 3V AP/LAT/OBL LEFT RADEX FOOT COMPLETE MINIMUM 3 VIEWS Matti Anderson PA-C [address] [facility] [address] [place] [address] [place] [address] Referral ID Status Reason Start Date Expiration Date V isits Requested Visits Authorized [id number] Closed Auto-Generate d Referral 09/01/2024 10/01/2025 1 1 [facility] for referral (narrative)No reason for referral information [facility] Reason for visit Narrative* Diagnostic Procedure Only (Urgent) - Closed Specialty Diagnoses / Procedures Referred By Contac t Referred To Contact XR IMAGING Diagnoses Injury of right elbow, initial encounter Procedures XR ELBOW SPECIAL VIEWS AP/LAT/OTHER RIGHT RADEX ELBOW COMPLETE MINIMUM 3 VIEWS Freddy Lyons APRN.FRICKERTRON CHECKER [address] [facility] [place] [address] [place] [address] Referral ID Status Reason Start Date Expiration Date V isits Requested Visits Authorized [id number] Closed Auto-Generate d Referral 03/07/2024 04/06/2025 1 1 [facility] for visit Narrative* Diagnostic Procedure Only (Urgent) - Closed Specialty Diagnoses / Procedures Referred By Contac t Referred To Contact XR IMAGING Diagnoses Foot sprain, left, initial encounter Procedures XR ANKLE GENERAL 3V AP/LAT/OBL LEFT RADEX ANKLE COMPLETE MINIMUM 3 VIEWS Matti Anderson PA-C [address] [facility] [address] [place] [address] [place] [address] Referral ID Status Reason Start Date Expiration Date V isits Requested Visits Authorized [id number] Closed Auto-Generate d Referral 09/01/2024 10/01/2025 1 1 Medications Administered Section Inactive Administered Medications - up to 3 most recent administrations Medication Order MAR Action Action Date Dose Rate Site hyaluronate sodium, stabilized syrg 4 mL (MONOVISC) 4 mL, Injection - FOR ORTHO USE ONLY, ONE TIME INJECTION, 1 dose, Starting on Thu02/07/22 at 1031, Until Thu02/07/22 at 1031 Given 02/07/2022 10:31 AM EDT 4 mL Chief Complaint and Reason for Visit Chief 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, 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., 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 Reason for Visit IBS (irritable bowel syndrome) Establishing care with new doctor, encounter for TMJ (dislocation of temporomandibular joint) Chronic knee pain Stress and adjustment reaction Chief Complaint PINK EYE headaches SORE THROAT, CONGESTED, COUGH, SINUS PRESSURE SCREENING Reason for Visit Anxiety TMJ (dislocation of temporomandibular joint) New onset headache Screening for breast cancer Sore throat Acute sinusitis Sore throat Chief Complaint LFT EAR PAIN POSSIBLE MENOPAUSE Reason for Visit Dysfunction of both eustachian tubes Ear fullness Screening for cardiovascular condition Fatigue Hot flashes Anxiety TMJ (dislocation of temporomandibular joint) Morbid obesity with BMI of 40.0-44.9, adult Left hip pain Screening for breast cancer Chief Complaint Admit Date FOLLOW UP August 18, 2024 9: 47am UPPER EXT August 27, 2024 1 :16pm BILATERAL KNEES September 05, 2024 1 2:49pm RM 1 September 05, 2024 1 :24pm FOLLOW UP October 13, 2024 8:00am RIGHT KNEE October 19, 2024 10:5 2am RIGHT KNEE October 27, 2024 10: 22am Reason for Visit Admit Date Fatigue August 18, 2024 9: 47am Dizziness August 18, 2024 9: 47am Hot flashes August 18, 2024 9: 47am Family history of factor V deficiency Justin woods 2024 9:47am Anxiety August 18, 2024 9: 47am Mixed hyperlipidemia August 18, 2024 9 :47am TMJ (dislocation of temporomandibular david int) August 18, 2024 9:47am Morbid obesity with BMI of 40.0-44.9, ad ult August 18, 2024 9:47am Vitamin d deficiency August 18, 2024 9 :47am Left knee DJD September 05, 2024 1 2:49pm Metatarsophalangeal (joint) sprain Janua 2024 12:49pm Obesity September 05, 2024 1 2:49pm Right knee DJD September 05, 2024 1 2:49pm Hot flashes October 13, 2024 8:00am Anxiety October 13, 2024 8:00am Mixed hyperlipidemia October 13, 2024 8:00am Elevated liver enzymes October 13 8:00am TMJ (dislocation of temporomandibular david int) October 13, 2024 8:00am Morbid obesity with BMI of 40.0-44.9, ad ult October 13, 2024 8:00am Right knee DJD October 19, 2024 10:5 2am Chief Complaint Admit Date RIGHT KNEE October 27, 2024 10: 22am CONCERN FOR SINUS INFECTION October 28, 2024 3:45pm RIGHT KNEE November 04, 2024 9:3 7am LEFT KNEE November 25, 2024 12: 58pm PHYSICAL FOR WORK February 20, 2025 11:16 am Reason for Visit Admit Date Acute sinusitis October 28, 2024 3:4 5pm Right knee DJD November 04, 2024 9:3 7am Left knee DJD November 25, 2024 12: 58pm Fatigue February 20, 2025 11:16 am Hot flashes February 20, 2025 11:16 am Anxiety February 20, 2025 11:16 am Annual physical exam February 20, 2025 11:1 6am Morbid obesity with BMI of 40.0-44.9, ad ult February 20, 2025 11:16am Screening for breast cancer February 20 11:16am Family History No Family History Records Found Relationship Condition Age at Onset Recorded Date/T ramón grandmother Diabetes mellitus Unknown grandfather Parkinson's disease Unknown mother Malignant neoplasm of skin Unknown Relationship Condition Age at Onset Recorded Date/T ramón grandmother Diabetes mellitus Unknown grandfather Parkinson's disease Unknown mother Malignant neoplasm of skin Unknown sister Autoimmune disease Unknown aunt Autoimmune disease Unknown Relationship Condition Age at Onset Recorded Date/T ramón grandmother Diabetes mellitus Unknown grandfather Parkinson's disease Unknown mother Malignant neoplasm of skin Unknown Hemorrhagic disorder Unknown sister Autoimmune disease Unknown aunt Autoimmune disease Unknown Advance Directives No Advanced Directives Records Found Advance Directive Response Recorded Date/ Time Advance Directives No September 21, 2014 2:29pm Living Will No September 21 2:29pm Power of Ancillary Services Manager Therapy No September 21, 2014 2:29pm Advance Directive Response Recorded Date/ Time Living Will No August 27 2:29pm Power of Ancillary Services Manager Therapy No August 27, 2024 2:29pm Advance Directives No September 21, 2014 2:29pm Advance Directive Response Recorded Date/ Time Advance Directives No September 21, 2014 2:29pm Summary Purpose Reason for Referral Specialty Diagnoses / Procedures Referred By Contac t Referred To Contact Orthopedics Diagnoses Injury of right elbow, initial encounter Procedures CONSULT TO ORTHOPAEDICS OFFICE/OUTPATIENT [facility] MDM 60 MINUTES Freddy Lyons APRN.[employer] CHECKER [address] [place] [address] Referral ID Status Reason Start Date Expiration Date Visits Requested Visits Authorized [id number] Authorized PCP Requested Referral 03/07/2024 03/07/2025 1 1 Specialty Diagnoses / Procedures Referred By Contac t Referred To Contact XR IMAGING Diagnoses Injury of right elbow, initial encounter Procedures XR ELBOW SPECIAL VIEWS AP/LAT/OTHER RIGHT RADEX ELBOW COMPLETE MINIMUM 3 VIEWS Freddy Lyons, KANE.[employer]ER[employer] CHECKER [address] [place] [address] [place] [address] Referral ID Status Reason Start Date Expiration Date V isits Requested Visits Authorized [id number] Closed Auto-Generate d Referral 03/07/2024 04/06/2025 1 1 Additional Source Comments Source Comments (unrecognize d section and content) In the event this informatio n is protected by the Federal Confidentiality of Alcohol and Drug Abuse Patient Records regulations: The Federal rules restrict any use of the information to criminally investigate or prosecute any alcohol or drug abuse patient.In the event this information is protected by the Federal Confidentiality of Alcohol and Drug Abuse Patient Records regulations: The Federal rules restrict any use of the information to criminally investigate or prosecute any alcohol or drug abuse patient.In the event this information is protected by the Federal Confidentiality of Alcohol and Drug Abuse Patient Records regulations: The Federal rules restrict any use of the information to criminally investigate or prosecute any alcohol or drug abuse patient.In the event this information is protected by the Federal Confidentiality of Alcohol and Drug Abuse Patient Records regulations: The Federal rules restrict any use of the information to criminally investigate or prosecute any alcohol or drug abuse patient.In the event this information is protected by the Federal Confidentiality of Alcohol and Drug Abuse Patient Records regulations: The Federal rules restrict any use of the information to criminally investigate or prosecute any alcohol or drug abuse patient.In the event this information is protected by the Federal Confidentiality of Alcohol and Drug Abuse Patient Records regulations: The Federal rules restrict any use of the information to criminally investigate or prosecute any alcohol or drug abuse patient.In the event this information is protected by the Federal Confidentiality of Alcohol and Drug Abuse Patient Records regulations: The Federal rules restrict any use of the information to criminally investigate or prosecute any alcohol or drug abuse patient.In the event this information is protected by the Federal Confidentiality of Alcohol and Drug Abuse Patient Records regulations: The Federal rules restrict any use of the information to criminally investigate or prosecute any alcohol or drug abuse patient.In the event this information is protected by the Federal Confidentiality of Alcohol and Drug Abuse Patient Records regulations: The Federal rules restrict any use of the information to criminally investigate or prosecute any alcohol or drug abuse patient.In the event this information is protected by the Federal Confidentiality of Alcohol and Drug Abuse Patient Records regulations: The Federal rules restrict any use of the information to criminally investigate or prosecute any alcohol or drug abuse patient.In the event this information is protected by the Federal Confidentiality of Alcohol and Drug Abuse Patient Records regulations: The Federal rules restrict any use of the information to criminally investigate or prosecute any alcohol or drug abuse patient.In the event this information is protected by the Federal Confidentiality of Alcohol and Drug Abuse Patient Records regulations: The Federal rules restrict any use of the information to criminally investigate or prosecute any alcohol or drug abuse patient.In the event this information is protected by the Federal Confidentiality of Alcohol and Drug Abuse Patient Records regulations: The Federal rules restrict any use of the information to criminally investigate or prosecute any alcohol or drug abuse patient.In the event this information is protected by the Federal Confidentiality of Alcohol and Drug Abuse Patient Records regulations: The Federal rules restrict any use of the information to criminally investigate or prosecute any alcohol or drug abuse patient.In the event this information is protected by the Federal Confidentiality of Alcohol and Drug Abuse Patient Records regulations: The Federal rules restrict any use of the information to criminally investigate or prosecute any alcohol or drug abuse patient.In the event this information is protected by the Federal Confidentiality of Alcohol and Drug Abuse Patient Records regulations: The Federal rules restrict any use of the information to criminally investigate or prosecute any alcohol or drug abuse patient.In the event this information is protected by the Federal Confidentiality of Alcohol and Drug Abuse Patient Records regulations: The Federal rules restrict any use of the information to criminally investigate or prosecute any alcohol or drug abuse patient. Reason for Visit (unrecogniz ed section and content) Reason Comments Medication Problem Reason Comments Orders Reason Comments Knee Pain Established Patient Follow Up Reason Comments Ear Pain bilateral ear pain x 1.5 weeks Reason Comments Cough Cough and congestion x 1 week Reason Comments Results Reason Comments Mouth/Lip Problem Bilat jaws in pain x 2 weeks states possible TMJ flare up Reason Comments Trauma Right elbow pain, ra n into wall x 4 weeks Reason Comments Cough Cough, BRUNO, fatigue a nd St x 2 days Reason Comments Cough BRUNO, sore throat, ruddy ffy nose, sneezing, fatigue x 5 days Reason Comments Urinary Frequency Frequency and burnin g x 2-3 days and possible ear infection Reason Comments Trauma Fall, rolled ankle,/ foot, twisted foot behind her, LROM, swelling, painful from arch on bottom through the top x 2 hours Care Teams (unrecognized sec tion and content) Film Mounter Relationship Specialty Start Date End Date Pcp, No PCP - General 06/21/21 01/14/22 Film Mounter Relationship Specialty Start Date End Date Pcp, No PCP - General 06/21/21 01/14/22 Team Status: Active Member Role Status Dates Dr. Mayo Smith MD Family Provider Active Dr. Cleo Gonzalez MD Primary Care Provider Active Team Status: Inactive Member Role Status Dates Dr. Cleo Gonzalez MD Primary Care Provider, Referri ng Provider Active Sekou MCKE[place], [place] Attending Provider Active Team Status: Inactive Member Role Status Dates Dr. Cleo Gonzalez MD Primary Care Pro vider, Attending Provider, Referring Provider Active Team Status: Inactive Member Role Status Dates Dr. Cleo Gonzalez MD Primary Care Provider, Attendi ng Provider Active Film Mounter Relationship Specialty Start Date End Date Cleo Gonzalez MD [address] [place], [place] [id number] PCP - General Internal Medicine 03/07/24 Film Mounter Relationship Specialty Start Date End Date Cleo Gonzalez MD [address] [place], [place] [id number] PCP - General Internal Medicine 03/07/24 Film Mounter Relationship Specialty Start Date End Date Cleo Gonzalez MD [address] [place], [place] [id number] PCP - General Internal Medicine 03/07/24 Film Mounter Relationship Specialty Start Date End Date Cleo Gonzalez MD [address] [place], [place] [id number] PCP - General Internal Medicine 03/07/24 Film Mounter Relationship Specialty Start Date End Date Cleo Gonzalez MD [address] [place], [place] [id number] PCP - General Internal Medicine 03/07/24 Film Mounter Relationship Specialty Start Date End Date Cleo Gonzalez MD [address] [place], [place] [id number] PCP - General Internal Medicine 03/07/24 Team Status: Inactive Member Role Status Dates Dr. Cleo Gonzalez MD Primary Care Provider Active Start: August 18, 2024 End: August 18, 2024 Dr. Cleo Gonzalez MD Attending Provider Active Start: August 18, 2024 End: August 18, 2024 Dr. Cleo Gonzalez MD Referring Provider Active Start: August 18, 2024 End: August 18, 2024 Team Status: Inactive Member Role Status Dates Dr. Cleo Gonzalez MD Primary Care Provider Active Start: August 27, 2024 End: August 27, 2024 Dr. Zackery Juárez DO Attending Provider Active Start: August 27, 2024 End: August 27, 2024 Dr. Zackery Juárez DO Referring Provider Active Start: August 27, 2024 End: August 27, 2024 Dr. Zackery Juárez DO Emergency Provider Active Start: August 27, 2024 End: August 27, 2024 Team Status: Inactive Member Role Status Dates Dr. Cleo Gonzalez MD Primary Care Provider Active Start: September 05, 2024 End: September 05, 2024 Dr. Cleo Gonzalez MD Referring Provider Active Start: September 05, 2024 End: September 05, 2024 Dr. Rob Craft DO Attending Provider Active Start: September 05, 2024 End: September 05, 2024 Team Status: Inactive Member Role Status Dates Dr. Cleo Gonzalez MD Primary Care Provider Active Start: September 05, 2024 End: September 05, 2024 Dr. Govind Wells MD Attending Provider Active S tart: September 05, 2024 End: September 05, 2024 Team Status: Inactive Member Role Status Dates Dr. Cleo Gonzalez MD Primary Care Provider Active Start: October 13, 2024 End: October 13, 2024 Dr. Cleo Gonzalez MD Attending Provider Active Start: October 13, 2024 End: October 13, 2024 Dr. Cleo Gonzalez MD Referring Provider Active Start: October 13, 2024 End: October 13, 2024 Team Status: Inactive Member Role Status Dates Dr. Cleo Gonzalez MD Primary Care Provider Active Start: October 19, 2024 End: October 19, 2024 Dr. Cleo Gonzalez MD Referring Provider Active Start: October 19, 2024 End: October 19, 2024 Dr. Rob Craft DO Attending Provider Active Start: October 19, 2024 End: October 19, 2024 Team Status: Inactive Member Role Status Dates Dr. Cleo Gonzalez MD Primary Care Provider Active Start: October 27, 2024 End: October 27, 2024 Dr. Cleo Gonzalez MD Referring Provider Active Start: October 27, 2024 End: October 27, 2024 VIR[place] Bowling Attending Provider Active Start: October 27, 2024 End: October 27, 2024 Team Status: Active Member Role/Relationship Status Dates Dr. Cleo Gonzalez MD Primary Care Provider Active Team Status: Inactive Member Role/Relationship Status Dates Dr. Cleo Gonzalez MD Primary Care Provider Active Start: October 27, 2024 End: October 27, 2024 Dr. Cleo Gonzalez MD Referring Provider Active Start: October 27, 2024 End: October 27, 2024 [place] Bowling Attending Provider Active Start: October 27, 2024 End: October 27, 2024 Team Status: Inactive Member Role/Relationship Status Dates Dr. Cleo Gonzalez MD Primary Care Provider Active Start: October 28, 2024 End: October 28, 2024 Dr. Cleo Gonzalez MD Referring Provider Active Start: October 28, 2024 End: October 28, 2024 MIKE Nguyễn Attending Provider Active Sta rt: October 28, 2024 End: October 28, 2024 Team Status: Inactive Member Role/Relationship Status Dates Dr. Cleo Gonzalez MD Primary Care Provider Active Start: November 04, 2024 End: November 04, 2024 Dr. Cleo Gonzalez MD Referring Provider Active Start: November 04, 2024 End: November 04, 2024 [place] Bowling Attending Provider Active Start: November 04, 2024 End: November 04, 2024 Team Status: Inactive Member Role/Relationship Status Dates Dr. Cleo Gonzalez MD Primary Care Provider Active Start: November 25, 2024 End: November 25, 2024 Dr. Cleo Gonzalez MD Referring Provider Active Start: November 25, 2024 End: November 25, 2024 VIR[place]IA Bowling Attending Provider Active Start: November 25, 2024 End: November 25, 2024 Team Status: Inactive Member Role/Relationship Status Dates Dr. Cleo Gonzalez MD Primary Care Provider Active Start: February 20, 2025 End: February 20, 2025 Dr. Cleo Gonzalez MD Attending Provider Active Start: February 20, 2025 End: February 20, 2025 Dr. Cleo Gonzalez MD Referring Provider Active Start: February 20, 2025 End: February 20, 2025 Team Status: Active Member Role/Relationship Status Dates Dr. Cleo Gonzalez MD Primary Care Provider Active Start: February 20, 2025 Dr. Cleo Gonzalez MD Attending Provider Active Start: February 20, 2025 Dr. Cleo Gonzalez MD Referring Provider Active Start: February 20, 2025 Team Status: Inactive Member Role/Relationship Status Dates Dr. Cleo Gonzalez MD Primary Care Provider Active Start: February 20, 2025 End: February 20, 2025 Dr. Cleo Gonzalez MD Attending Provider Active Start: February 20, 2025 End: February 20, 2025 Dr. Cleo Gonzalez MD Referring Provider Active Start: February 20, 2025 End: February 20, 2025 Goals (unrecognized section and content) Goals may be documented in a n alternate sectionGoals may be documented in an alternate section No data available for this sectionGoals may be documented in an alternate sectionGoals may be documented in an alternate sectionGoals may be documented in an alternate sectionGoals may be documented in an alternate section INFORMATION SOURCE (unrecogn ized section and content) DATE CREATED AUTHOR 11/21/2023 [facility] ([place] DATE CREATED AUTHOR AUTHOR'S ORGANIZ ATION 09/04/2024 [facility] DATE CREATED AUTHOR AUTHOR'S ORGANIZ ATION 03/08/2025 [facility] FOR RECORDS PERTAINING TO PATIENTS WHO ARE OR HAVE BEEN ENROLLED IN A CHEMICAL DEPENDENCY/SUBSTANCEABUSE PROGRAM, SOME INFORMATION MAY BE OMITTED. This clinical summary was aggregated from multiple sources. Caution should be exercised in using it in the provision of clinical care. This summary normalizes information from multiple sources, and as a consequence, information in this document may materially change the coding, format and clinical context of patient data. In addition, data may be omitted in some cases. CLINICAL DECISIONS SHOULD BE BASED ON THE PRIMARY CLINICAL RECORDS. [employer] [facility]. provides no warranty or guarantee of the accuracy or completeness of information in this document.
== END 2025-04-08 23:04 | disposition home or self-care (01) ==
LOC: ED 22:52
PROVIDERS: Emergency Provider Emergency Medicine; PCP Internal Medicine; Visit Provider Emergency Medicine
DX: S93.401A Sprain of unspecified ligament of right ankle, initial encounter (principal); M25.571 Pain in right ankle and joints of right foot; R60.0 Localized edema; Z87.891 Personal history of nicotine dependence; W10.9XXA Fall (on) (from) unspecified stairs and steps, initial encounter
CPT/HCPCS: 73610; 99282

== ENCOUNTER → 2025-05-04 | Outpatient (CLI) | payer BC, SELFPAY ==
--- NOTE | 2025-05-04 16:15 | MRI_ITS ---
PROCEDURE: LOWER EXT JOINT ONLY (ROUTINE) 05/04/2025 REASON FOR EXAM: ANKLE PAIN, SWELLING TECHNIQUE: Procedure Code: MRILEJ Modality: MR Procedure: LOWER EXT JOINT ONLY (ROUTINE) Multiplanar and multisequence images were obtained without IV contrast administration. COMPARISON: COMPARISON : None FINDINGS: Osseous: Distal tibiofibular congruency is maintained. The ankle mortise is preserved. No osteochondral defect is seen at the talar dome. There is an acute appearing minimally displaced fracture involving a 9 mm segment of the anterior process of the calcaneus. Fracture extends into the calcaneocuboid joint. No other acute displaced fracture is seen. Small tibiotalar joint effusion. Small subtalar effusion. Moderate talonavicular effusion with fluid distending dorsally. Synovial cystic changes are seen posterior to the subtalar joint. Small calcaneocuboid effusion. Small midfoot effusion. Bone marrow: There is heterogeneous bone marrow edema throughout the anterior calcaneus associated with the anterior calcaneal fracture. There is mild bone marrow edema within the subchondral anterior talar head consistent with bone contusion. Articular cartilage: Tibiotalar articular cartilage is preserved. No full-thickness articular cartilage loss is seen. Subtalar cartilage is preserved. No full-thickness subtalar cartilage loss seen. Soft tissue: There is subcutaneous soft tissue edema surrounding the ankle medially and laterally. No discrete soft tissue hematoma is seen. Muscle: Mild edema is seen within the visualized lateral extensor musculature of the dorsal midfoot consistent with mild sprain. Muscle quality at the level of the hindfoot is otherwise preserved. No other evidence of an acute muscle strain or chronic denervation. Ligaments: No acute appearing ligamentous injury is seen. Plantar fascia: The plantar fascia is intact. No evidence of plantar fasciitis. No plantar fibroma. Tendons: No acute tendon injury is seen. No significant tenosynovitis. MRI/Lower Ext Joint Only (Routine) IMPRESSION: Findings are consistent with acute intra-articular fracture involving the anter ior process of the calcaneus with associated bone marrow edema. Bone contusion noted within the talar head. - Hindfoot effusions noted. - Other findings discussed above. Reading Location: [id number]
== END | disposition home or self-care (01) ==
LOC: MRI 15:30
PROVIDERS: PCP Internal Medicine; Referring Provider Nurse Practitioner Family; Visit Provider Nurse Practitioner Family
DX: S93.401A Sprain of unspecified ligament of right ankle, initial encounter (principal); Z98.890 Other specified postprocedural states; M79.89 Other specified soft tissue disorders; X58.XXXA Exposure to other specified factors, initial encounter
CPT/HCPCS: 73721